=== PATIENT | male | born 1980 ===

== ENCOUNTER 2017-03-24 20:52 | Emergency (ER) | payer SELFPAY ==
[2017-03-24 20:53] VITALS: BMI 32.5
[2017-03-24 21:03] VITALS: BP 137/77; PULSE 113; RESP 16; TEMP 98.6; O2SAT 98
--- NOTE | 2017-03-24 21:38 | ED PDOC ---
Arrival/HPI - General Historian: Patient - History of Present Illness Time/Duration: Other (Yeserday) Symptom Onset: Sudden Symptom Course: Improving Activities at Onset: Rest, Light Context: Work <Jm Sandy - Last Filed: 03/24/17 22:45> <Inga Valencia PA-C - Last Filed: 03/24/17 22:56> - General Chief Complaint: Abnormal Skin Integrity Time Seen by Provider: 03/24/17 21:23 - History of Present Illness Narrative History of Present Illness (Text): 03/24/17 22:12 A 36 year old male with no known medical history , presents to the emergency department with a diffuse, itchy, erythematous, raised rash on the right arm after work. 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 The patient notes that he took Benadryl prior to arrival and the symptoms have improved. The patient denies chest pain, fever, chills, shortness of breath, URI, nausea, vomiting, diarrhea, dizziness, headache or any other complaints. (Jm Sandy) Past Medical History - Provider Review Nursing Documentation Reviewed: Yes <Jm Sandy - Last Filed: 03/24/17 22:45> - Infectious Disease Hx of Infectious Diseases: None - Cardiac Hx Cardiac Disorders: Yes Hx Hypertension: Yes - Endocrine/Metabolic Hx Endocrine Disorders: Yes Hx Diabetes Mellitus Type 2: Yes - Musculoskeletal/Rheumatological Hx Falls: No - Psychiatric Hx Psychophysiologic Disorder: No Hx Substance Use: No - Anesthesia Hx Anesthesia: Yes Hx Anesthesia Reactions: No Hx Malignant Hyperthermia: No <Inga Valencia PA-C - Last Filed: 03/24/17 22:56> Family/Social History - Physician Review Nursing Documentation Reviewed: Yes Family/Social History: No Known Family HX <Jm Sandy - Last Filed: 03/24/17 22:45> Smoking Status: Never Smoked Hx Alcohol Use: Yes (socially) Hx Substance Use: No <Inga Valencia PA-C - Last Filed: 03/24/17 22:56> Allergies/Home Meds <Jm Sandy - Last Filed: 08/03/17 22:45> <Inga Valencia PA-C - Last Filed: 03/24/17 22:56> Allergies/Adverse Reactions: Allergies No Known Allergies Allergy (Verified 06/15/15 20:00) Home Medications: Home Meds Medication Instructions Recorded Confirmed Lisinopril [Zestril] 20 mg PO DAILY 03/24/17 03/24/17 Review of Systems - Physician Review All systems were reviewed & negative as marked: Yes - Review of Systems Constitutional: absent: Fevers, Night Sweats Respiratory: absent: SOB, Other (URI) Cardiovascular: absent: Chest Pain Gastrointestinal: absent: Diarrhea, Nausea, Vomiting Skin: Rash (diffuse, itchy, erythematous, raised rash on right arm) Neurological: absent: Headache, Dizziness <Jm Sandy - Last Filed: 03/24/17 22:45> Physical Exam Vital Signs Reviewed: Yes Temperature: Afebrile Blood Pressure: Normal Pulse: Tachycardic Respiratory Rate: Normal - Systems Exam Head: Present: Atraumatic, Normocephalic Pupils: Present: PERRL Extroacular Muscles: Present: EOMI Conjunctiva: Present: Normal Mouth: Present: Moist Mucous Membranes Neck: Present: Normal Range of Motion Respiratory/Chest: Present: Clear to Auscultation, Good Air Exchange. No: Respiratory Distress, Accessory Muscle Use Cardiovascular: Present: Regular Rate and Rhythm, Normal S1, S2. No: Murmurs Abdomen: Present: Normal Bowel Sounds. No: Tenderness, Distention, Peritoneal Signs Back: Present: Normal Inspection Upper Extremity: Present: Normal Inspection. No: Cyanosis, Edema Lower Extremity: Present: Normal Inspection. No: Edema Neurological: Present: GCS=15, CN II-XII Intact, Speech Normal Skin: Present: Rashes (reisdual rash on right arm), Erythematous Psychiatric: Present: Alert, Oriented x 3, Normal Insight, Normal Concentration <Jm Sandy - Last Filed: 03/24/17 22:45> Medical Decision Making <Jm Sandy - Last Filed: 03/24/17 22:45> <Inga Valencia PA-C - Last Filed: 03/24/17 22:56> ED Course and Treatment: 03/24/17 22:45 I was available for consultation during PA evaluation. The chart reviewed by me , and I agree with disposition. The documented history was done by the physician criminal researcher. The documented physical exam was done by physician criminal researcher. The documented procedures were done by physician criminal researcher. (Jm Sandy) 03/24/17 21:35 36 yo M presents for red itch rash to the R arm, initially diffuse yesterday, improved with benadryl. Pt informed of likely diagnosis of urticaria, advised to continue taking benadryl or zyrtec po for his symptoms. Otherwise, pt was instructed to follow up with primary care physician in 1-2 days without fail. Return to the emergency room at any time for any new or worsening symptoms. Patient states he fully agrees with and understands discharge instructions. States that he agrees with the plan and disposition. Verbalized and repeated discharge instructions and plan. I have given the patient opportunity to ask any additional questions. (Inga Valencia PA-C) - Scribe Statement The provider has reviewed the documentation as recorded by the Scribe <Jm Sandy - Last Filed: 03/24/17 22:45> - PA / FLOOR MECHANIC / Resident Statement /DO has reviewed & agrees with the documentation as recorded. <Inga Valencia PA-C - Last Filed: 03/24/17 22:56> - Scribe Statement Ria Crabtree Provider Scribe Attestation: All medical record entries made by the Scribe were at my direction and personally dictated by me. I have reviewed the chart and agree that the record accurately reflects my personal performance of the history, physical exam, medical decision making, and the department course for this patient. I have also personally directed, reviewed, and agree with the discharge instructions and disposition (Jm Sandy) Disposition/Present on Arrival <mJ Sandy - Last Filed: 03/24/17 22:45> - Present on Arrival Any Indicators Present on Arrival: No History of DVT/PE: No History of Uncontrolled Diabetes: No Urinary Catheter: No History of Decub. Ulcer: No History Surgical Site Infection Following: None - Disposition Have Diagnosis and Disposition been Completed?: Yes Disposition Time: 21:36 Patient Plan: Discharge <Inga Valencia PA-C - Last Filed: 03/24/17 22:56> - Disposition Diagnosis: Urticaria Disposition: HOME/ ROUTINE Condition: STABLE Discharge Instructions (ExitCare): Urticaria (ED) Print Language: OCCITAN Additional Instructions: Thank you for letting us take care of you today. You were treated for urticaria. The emergency medical care you received today was directed at your acute symptoms. If you were prescribed any medication, please fill it and take as directed. It may take several days for your symptoms to resolve. Return to the Emergency Department if your symptoms worsen, do not improve, or if you have any other problems. Please contact your doctor in 2 days for re-evaluation and follow up / or call one of the physicians/clinics you have been referred to that are listed on the Patient Visit Information form that is included in your discharge packet. Bring any paperwork you were given at discharge with you along with any medications you are taking to your follow up visit. Our treatment cannot replace ongoing medical care by a primary care provider (PCP) outside of the emergency department. Thank you for allowing the [facility] team to be part of your care today. Prescriptions: Cetirizine HCl [Zyrtec] 10 mg PO DAILY #30 capsule Referrals: Génesis Connor DO [Primary Care Provider] - Follow up with primary Forms: [employer] ([place]se), WORK NOTE
== END 2017-03-24 21:49 | disposition home or self-care (01) ==
LOC: ED 20:52
DX: L50.9 Urticaria, unspecified (principal)

== ENCOUNTER 2017-10-13 13:35 | Emergency (ER) | payer OTHER ==
[2017-10-13 13:35] VITALS: BMI 32.5
--- NOTE | 2017-10-13 13:41 | ED PDOC ---
Arrival/HPI - General Time Seen by Provider: 10/13/17 13:36 Historian: Patient - History of Present Illness Narrative History of Present Illness (Text): 10/13/17 13:38 36 y/o male, pmh including dm, nkda, last tetanus doesn't remember, biba for etoh intoxication and fall on the street today. Pt. admits drinking, found small drinking bottles next to him, found on the sidewalk, fall on the posterior head, no back pain, no rib or extremity pain, no palpitation, no chest pain, no rash, no other medical or psychological complaints. Past Medical History - Provider Review Nursing Documentation Reviewed: Yes - Infectious Disease Hx of Infectious Diseases: None - Cardiac Hx Cardiac Disorders: Yes Hx Hypertension: Yes - Endocrine/Metabolic Hx Endocrine Disorders: Yes Hx Diabetes Mellitus Type 2: Yes - Musculoskeletal/Rheumatological Hx Falls: No - Psychiatric Hx Psychophysiologic Disorder: No Hx Substance Use: No - Anesthesia Hx Anesthesia: Yes Hx Anesthesia Reactions: No Hx Malignant Hyperthermia: No Family/Social History - Physician Review Nursing Documentation Reviewed: Yes Family/Social History: Unknown Family HX Smoking Status: Never Smoked Hx Alcohol Use: Yes (socially) Hx Substance Use: No Allergies/Home Meds Allergies/Adverse Reactions: Allergies No Known Allergies Allergy (Verified 10/13/17 13:43) Review of Systems - Review of Systems Constitutional: absent: Fatigue, Weight Change Eyes: absent: Vision Changes, Photophobia ENT: absent: Hearing Changes Respiratory: absent: SOB, Cough Cardiovascular: absent: Chest Pain Gastrointestinal: absent: Abdominal Pain, Nausea, Vomiting Physical Exam Vital Signs Temp Pulse Resp BP Pulse Ox 10/13/17 15:37 97.6 F 90 18 134/79 98 - Systems Exam Head: Present: Tenderness, Contusion, Swelling, Abrasion, Other (approx. 4c diameter posterior occipital scalp hematoma noted on the posterior head region. ). No: Ecchymosis, Laceration Pupils: Present: PERRL Extroacular Muscles: Present: EOMI Conjunctiva: Present: Normal Ears: Present: NORMAL TM, Normal Canal. No: Erythema Mouth: Present: Moist Mucous Membranes Pharnyx: Present: Normal. No: ERYTHEMA, EXUDATE, TONSILS ENLARGED, Peritonsilar Swelling Nose (External): Present: Atraumatic. No: Abrasion, Contusion, Laceration Nose (Internal): Present: Normal Inspection, No Active Bleeding. No: Rhinorrhea , Septal Hematoma, Epistaxis Neck: Present: Normal Range of Motion, Trachea Midline. No: Meningeal Signs, MIDLINE TENDERNESS, Paraspinal Tenderness, Lymphadenopathy Respiratory/Chest: Present: Clear to Auscultation, Good Air Exchange. No: Respiratory Distress, Accessory Muscle Use Cardiovascular: Present: Regular Rate and Rhythm, Normal S1, S2. No: Murmurs Abdomen: Present: Normal Bowel Sounds. No: Tenderness, Distention, Peritoneal Signs, Rebound, Guarding Back: Present: Normal Inspection Upper Extremity: Present: Normal Inspection. No: Cyanosis, Edema Lower Extremity: Present: Normal Inspection. No: Edema Neurological: Present: GCS=15, CN II-XII Intact, Speech Normal, Motor Func Grossly Intact, Memory Normal Skin: Present: Warm, Dry, Normal Color. No: Rashes Psychiatric: Present: Alert, Oriented x 3, Normal Insight, Normal Concentration Medical Decision Making ED Course and Treatment: 10/13/17 13:43 -Ct head/cervical -Labs -IV banana bag/tdap -observe and reassess 10/13/17 13:44 -irrigate the abrasion with normal saline, clean with betadine, bacitracin and gauze dressing. 10/13/17 17:55 -Labs are non-significant except etoh intoxicated and chronic alcohol drinking LFT elevated noted, K+ 3.4 (potassium chloride 20meq po ordered) -CT head show no acute findings -CT cervical show unremarkable CT of the cervical spine. -Pt. is up and walking, food and juice given, walking with normal gait and posture, no focal neurological complaints. -pt. refused detox. -Discharge home with bacitracin oinment, avoid drinking in the public, return to the ER for any new or worsening signs or symptoms. - Lab Interpretations Lab Results: 10/13/17 13:45 10/13/17 13:45 Lab Results 10/13/17 13:45: Sodium 151 H, Potassium 3.4 L, Chloride 106, Carbon Dioxide 23, Anion Gap 25 H, BUN 4 L, Creatinine 0.5 L, Est GFR ( Amer) > 60, Est GFR (Non-Af Amer) > 60, Random Glucose 174 H, Calcium 9.5, Magnesium 1.8, Total Bilirubin 0.9, AST 119 H, ALT 79 H, Alkaline Phosphatase 186 H, Total Protein 8.2, Albumin 4.6, Globulin 3.6, Albumin/Globulin Ratio 1.3 10/13/17 13:45: WBC 9.9 D, RBC 4.54, Hgb 15.2, Hct 45.7, MCV 100.7, MCH 33.5, MCHC 33.3, RDW 13.2, Plt Count 200, MPV 10.7, Gran % 72.9 H, Lymph % (Auto) 21.3 L, [place] % (Auto) 5.2, Eos % (Auto) 0.1 L, Baso % (Auto) 0.5, Gran # 7.23 H , Lymph # (Auto) 2.1, [place] # (Auto) 0.5, Eos # (Auto) 0.0, Baso # (Auto) 0.05 - RAD Interpretation Radiology Orders: 10/13/17 13:44 CERVICAL SPINE W/O CONTRAST [CT] Stat HEAD W/O CONTRAST [CT] Stat CT Head: HEMORRHAGE: No intracranial hemorrhage. BRAIN: No mass effect or edema. No atrophy or chronic microvascular ischemic changes. VENTRICLES: Unremarkable. No hydrocephalus. CALVARIUM: Unremarkable. PARANASAL SINUSES: Unremarkable as visualized. No significant inflammatory changes. MASTOID AIR CELLS: Unremarkable as visualized. No inflammatory changes. OTHER FINDINGS: None. IMPRESSION: No acute intracranial findings CT Cervical: VERTEBRAE: No fracture. Normal alignment. No destructive bony lesion. DISCS/SPINAL CANAL/NEURAL FORAMINA: No significant central canal or neural foraminal stenosis. Discs heights are grossly preserved. PARASPINAL SOFT TISSUES: Unremarkable. OTHER FINDINGS: None. IMPRESSION: Unremarkable CT of the cervical spine. Carton Inspector: Radiologist - Medication Orders Current Medication Orders: Discontinued Medications Multivitamins/Vitamin C 10 ml/Thiamine HCl 100 mg/ Folic Acid 1 mg/ Dextrose 1, 011.2 mls @ 1,000 mls/hr IV .Q1H1M ONE Stop: 10/13/17 14:44 Last Admin: 10/13/17 14:55 Dose: 1,000 mls/hr eMAR Start Stop Document 10/13/17 14:55 CNR (Rec: 10/13/17 14:55 CNR [id number]) Intravenous Solution Start Date 10/13/17 Start Time 14:55 Potassium Chloride (K-Dur 20 Meq Er Tab) 20 meq PO STAT STA Stop: 10/13/17 14:20 Last Admin: 10/13/17 15:01 Dose: Not Given Non-Admin Reason: Patient Refused Tetanus/Reduced Diphtheria/Acell Pertussis (Boostrix Vaccine Inj) 0.5 ml IM .ONCE ONE Stop: 10/13/17 13:49 Last Admin: 10/13/17 14:55 Dose: 0.5 ml Immunization Registry Document 10/13/17 14:55 CNR (Rec: 10/13/17 14:55 CNR [id number]) Immunization Registry Consent Date 10/13/17 - PA / SKIN PASS OPERATOR / Resident Statement / has reviewed & agrees with the documentation as recorded. Disposition/Present on Arrival - Present on Arrival Any Indicators Present on Arrival: No History of DVT/PE: No History of Uncontrolled Diabetes: No Urinary Catheter: No History of Decub. Ulcer: No History Surgical Site Infection Following: None - Disposition Have Diagnosis and Disposition been Completed?: Yes Diagnosis: Alcohol intoxication, Head injury, Scalp abrasion, Hypokalemia Disposition: HOME/ ROUTINE Disposition Time: 13:43 Patient Plan: Discharge Patient Problems: Current Active Problems Problem Status Onset Alcohol intoxication Acute Head injury Acute Scalp abrasion Acute Condition: GOOD Additional Instructions: -Discharge home with bacitracin oinment, avoid drinking in the public, return to the ER for any new or worsening signs or symptoms. Prescriptions: Bacitracin Ointment [Bacitracin] 1 appful TOP BID #15 g Referrals: PCP,NO [Non-Staff] - Follow up with primary [facility] [place] [facility] [place] - Follow up with primary Forms: WORK NOTE
[2017-10-13] MEDS ORDERED: Multivitamin (MVI) 10 ML, Thiamine 100 MG, Folic Acid 1 MG in Dextrose 5% In Water 1,00... IV ONE (13:44)
[2017-10-13] MEDS ORDERED: TDAP Vaccine 0.5 mL Syr IM ONE (13:48)
[2017-10-13 14:05] LABS: BASO # 0.05 K/mm3 (0.0-2.0); BASO % 0.5 % (0.0-3.0); EOS % 0.1 % (1.5-5.0); GRAN # 7.23 (1.4-6.5); GRAN % 72.9 % (50.0-68.0); HEMOGLOBIN 15.2 g/dL (14.0-18.0); LYMPH # 2.1 (1.2-3.4); LYMPH % 21.3 % (22.0-35.0); MEAN CELL VOLUME 100.7 fl (80.0-105.0); MEAN CORPUSCULAR HEMOGLOBIN 33.5 pg (25.0-35.0); MEAN CORPUSCULAR HGB CONC 33.3 g/dl (31.0-37.0); MEAN PLATELET VOLUME 10.7 fl (7.0-11.0); MONO # 0.5 (0.1-0.6); MONO % 5.2 % (1.0-6.0); RBC 4.54 10^6/uL (3.5-6.1); RED CELL DISTRIBUTION WIDTH 13.2 % (11.5-14.5); WHITE BLOOD COUNT 9.9 10^3/ul (4.5-11.0)
[2017-10-13 14:14] LABS: ALB/GLOB RATIO 1.3 (1.1-1.8); ALBUMIN 4.6 g/dL (3.0-4.8); ALT/SGPT 79 U/L (7-56); AST/SGOT 119 U/L (17-59); BLOOD UREA NITROGEN 4 mg/dL (7-21); CALCIUM 9.5 mg/dL (8.4-10.5); GFR AFRICAN-AMERICAN > 60; GFR NON-AFRICAN AMERICAN > 60; MAGNESIUM 1.8 mg/dL (1.7-2.2)
--- NOTE | 2017-10-13 14:37 | CT ---
PROCEDURE: CT HEAD WITHOUT CONTRAST. HISTORY: fall, etoh, head injury COMPARISON: None available. TECHNIQUE: Axial computed tomography images were obtained through the head/brain without intravenous contrast. Radiation dose: Total exam DLP = 929 mGy-cm. This CT exam was performed using one or more of the following dose reduction techniques: Automated exposure control, adjustment of the mA and/or kV according to patient size, and/or use of iterative reconstruction technique. FINDINGS: HEMORRHAGE: No intracranial hemorrhage. BRAIN: No mass effect or edema. No atrophy or chronic microvascular ischemic changes. VENTRICLES: Unremarkable. No hydrocephalus. CALVARIUM: Unremarkable. PARANASAL SINUSES: Unremarkable as visualized. No significant inflammatory changes. MASTOID AIR CELLS: Unremarkable as visualized. No inflammatory changes. OTHER FINDINGS: None. IMPRESSION: No acute intracranial findings
--- NOTE | 2017-10-13 14:39 | CT ---
PROCEDURE: CT Cervical Spine without contrast HISTORY: Fall, ETOH, head injury COMPARISON: None available. TECHNIQUE: Axial computed tomography images were obtained of the cervical spine without the use of intravenous contrast. Coronal and sagittal reformatted images were created and reviewed. Radiation dose: Total exam DLP = 642 mGy-cm. This CT exam was performed using one or more of the following dose reduction techniques: Automated exposure control, adjustment of the mA and/or kV according to patient size, and/or use of iterative reconstruction technique. FINDINGS: VERTEBRAE: No fracture. Normal alignment. No destructive bony lesion. DISCS/SPINAL CANAL/NEURAL FORAMINA: No significant central canal or neural foraminal stenosis. Discs heights are grossly preserved. PARASPINAL SOFT TISSUES: Unremarkable. OTHER FINDINGS: None. IMPRESSION: Unremarkable CT of the cervical spine.
[2017-10-13] MEDS: Potassium Chloride 20 mEq ER Tab PO STA ×2 (14:56→15:01)
[2017-10-13 15:38] VITALS: BP 134/79; PULSE 90; RESP 18; TEMP 97.6; O2SAT 98
== END 2017-10-13 18:03 | disposition home or self-care (01) ==
LOC: ED 13:35
DX: S00.01XA Abrasion of scalp, initial encounter (principal); W18.30XA Fall on same level, unspecified, initial encounter; Y92.410 Unspecified street and highway as the place of occurrence of the external cause; E87.6 Hypokalemia; F10.129 Alcohol abuse with intoxication, unspecified; Y90.9 Presence of alcohol in blood, level not specified; Z23 Encounter for immunization
CPT/HCPCS: 70450; 72125; 80053; 83735; 85025; 90471; 90715; 99283; J3411; J7070

== ENCOUNTER 2018-11-30 16:21 | Inpatient (IN) | payer MEDICAID, OTHER ==
[2018-11-30 16:22] VITALS: BMI 32.5
[2018-11-30] MEDS ORDERED: TDAP Vaccine 0.5 mL Syr IM ONE (17:29)
[2018-11-30] MEDS ORDERED: Sodium Chloride 0.9% 500 ML IV STA (17:30)
--- NOTE | 2018-11-30 17:56 | ED PDOC ---
Arrival/HPI - General Chief Complaint: Abnormal Skin Integrity Time Seen by Provider: 11/30/18 17:21 Historian: Patient - History of Present Illness Narrative History of Present Illness (Text): 11/30/18 17:49 38 year old male, with history of daily alcohol consumption, presents to the ED for evaluation of laceration sustained to right side of his head while shaving yesterday. Patient states his friend noticed him bleeding from the area today, referring him to the ED for medical evaluation. Additionally, patient reports abdominal distention since past month but denies any medical attention or PMD follow-up. He denies any other associated somatic complaints. Patient denies any fevers, chills, headache, dizziness, chest pain, shortness of breath, dyspnea on exertion, cough, abdominal pain, nausea, vomiting, diarrhea, back pain, neck pain, or any other complaints. Time/Duration: 24 hours Symptom Onset: Gradual Symptom Course: Unchanged Activities at Onset: Light Context: Home Past Medical History - Provider Review Nursing Documentation Reviewed: Yes - Infectious Disease Hx of Infectious Diseases: None - Cardiac Hx Cardiac Disorders: Yes Hx Hypertension: Yes - Endocrine/Metabolic Hx Endocrine Disorders: Yes Hx Diabetes Mellitus Type 2: Yes - Musculoskeletal/Rheumatological Hx Falls: No - Psychiatric Hx Psychophysiologic Disorder: No Hx Substance Use: No - Anesthesia Hx Anesthesia: Yes Hx Anesthesia Reactions: No Hx Malignant Hyperthermia: No Family/Social History - Physician Review Nursing Documentation Reviewed: Yes Family/Social History: Unknown Family HX Smoking Status: Never Smoked Hx Alcohol Use: Yes (socially) Frequency of alcohol use: Daily Hx Substance Use: No Allergies/Home Meds Allergies/Adverse Reactions: Allergies No Known Allergies Allergy (Verified 10/13/17 13:43) Home Medications: Home Meds Medication Instructions Recorded Confirmed No Known Home Med 11/30/18 11/30/18 Review of Systems - Review of Systems Constitutional: absent: Fevers Eyes: absent: Vision Changes Respiratory: absent: SOB, Cough Cardiovascular: absent: Chest Pain Gastrointestinal: Other (Abdominal distention). absent: Abdominal Pain, Diarrhea, Nausea, Vomiting Genitourinary Male: absent: Dysuria, Urinary Output Changes Musculoskeletal: absent: Back Pain, Neck Pain Skin: Laceration (right side of his head). absent: Rash Neurological: absent: Headache, Dizziness Endocrine: absent: Diaphoresis Psychiatric: absent: Anxiety Physical Exam Vital Signs Reviewed: Yes Vital Signs Temp Pulse Resp BP Pulse Ox 11/30/18 16:47 99.5 F 108 H 20 136/87 97 Temperature: Afebrile Blood Pressure: Normal Pulse: Tachycardic Respiratory Rate: Normal Appearance: Positive for: Well-Appearing, Non-Toxic, Comfortable Pain Distress: None Mental Status: Positive for: Alert and Oriented X 3 - Systems Exam Head: Present: Normocephalic, Abrasion (noted to right side of his head) Pupils: Present: PERRL Extroacular Muscles: Present: EOMI Conjunctiva: Present: Normal, Icteric Respiratory/Chest: Present: Decreased Breath Sounds (Decreased air entry at the bases). No: Respiratory Distress, Accessory Muscle Use Cardiovascular: Present: Regular Rate and Rhythm, Normal S1, S2. No: Murmurs Abdomen: Present: Distention, Hernias (vental hernia, reducible, ). No: Tenderness, Peritoneal Signs Upper Extremity: Present: Normal Inspection. No: Cyanosis, Edema Lower Extremity: Present: Edema (trace edema noted to bilateral lower extremity) Neurological: Present: GCS=15, Speech Normal Skin: Present: Warm, Dry, Normal Color. No: Rashes Psychiatric: Present: Alert, Oriented x 3, Normal Insight, Normal Concentration Medical Decision Making ED Course and Treatment: 11/30/18 17:30 Impression: 38 year old male presents to the ED for evaluation of abrasion to right head. Plan: -- CT of Abdomen/Pelvis -- Labs -- EKG -- TDAP -- IV Fluids -- Urinalysis -- Reassess and disposition Prior Visits: Notes and results from previous visits were reviewed. Progress Notes: 11/30/18 18:28 Chest X-ray reviewed by radiologist, shows: Marked hypoinflation. Bibasilar atelectasis. 11/30/18 19:20 EKG reviewed, shows sinus tachycardia at 104 bpm with some LVH. 11/30/18 19:43 IMPRESSION: Mild consolidation and/or atelectasis at the lung bases as well as small pleural effusions. A large amount of ascites within the abdomen and pelvis. Mild hepatosplenomegaly. Cirrhotic changes within the liver. Clinical correlation advised. Accepted by Dr. Disla. enrollment services vice president aware 11/30/18 19:47 11/30/18 19:57 Dr. Disla requesting surgical consult for vental hernia. vice president quality assurance aware and consult placed. - RAD Interpretation Radiology Orders: 11/30/18 17:29 CHEST PORTABLE [RAD] Stat 11/30/18 17:30 ABD & PELVIS IV CONTRAST ONLY [CT] Stat - Medication Orders Current Medication Orders: Sodium Chloride (Sodium Chloride 0.9%) 500 mls @ 999 mls/hr IV .Q31M STA Stop: 11/30/18 18:00 Discontinued Medications Tetanus/Reduced Diphtheria/Acell Pertussis (Boostrix Vaccine Inj) 0.5 ml IM .ONCE ONE Stop: 11/30/18 17:30 - Scribe Statement The provider has reviewed the documentation as recorded by the Scribe Best Swan. All medical record entries made by the Scribe were at my direction and personally dictated by me. I have reviewed the chart and agree that the record accurately reflects my personal performance of the history, physical exam, medi sharonda decision making, and the department course for this patient. I have also personally directed, reviewed, and agree with the discharge instructions and disposition. Disposition/Present on Arrival - Present on Arrival Any Indicators Present on Arrival: No History of DVT/PE: No History of Uncontrolled Diabetes: No Urinary Catheter: No History of Decub. Ulcer: No History Surgical Site Infection Following: None - Disposition Have Diagnosis and Disposition been Completed?: Yes Diagnosis: Jaundice, Cirrhosis, Liver failure, Alcohol abuse, Ventral hernia Disposition: HOSPITALIZED Disposition Time: 19:40 Patient Plan: Admission Patient Problems: Current Active Problems Problem Status Onset Alcohol abuse Acute Cirrhosis Acute Jaundice Acute Liver failure Acute Ventral hernia Acute Condition: FAIR
[2018-11-30 18:05] LABS: BASO # 0.03 K/mm3 (0.0-2.0); BASO % 0.4 % (0.0-3.0); EOS # 0.2 (0.0-0.7); EOS % 2.1 % (1.5-5.0); HEMOGLOBIN 12.7 g/dL (14.0-18.0); LYMPH % 13.6 % (22.0-35.0); MEAN CELL VOLUME 94.2 fl (80.0-105.0); MEAN CORPUSCULAR HEMOGLOBIN 30.9 pg (25.0-35.0); MEAN CORPUSCULAR HGB CONC 32.8 g/dl (31.0-37.0); MEAN PLATELET VOLUME 10.7 fl (7.0-11.0); MONO # 0.6 (0.1-0.6); MONO % 8.8 % (1.0-6.0); RBC 4.11 10^6/uL (3.5-6.1); RED CELL DISTRIBUTION WIDTH 14.3 % (11.5-14.5); WHITE BLOOD COUNT 7.1 10^3/uL (4.5-11.0)
[2018-11-30 18:14] LABS: INR 1.26; PARTIAL THROMBOPLASTIN TIME 37.8 Seconds (26.9-38.3)
--- NOTE | 2018-11-30 18:17 | RAD ---
HISTORY: liver failure COMPARISON: Chest x-ray performed 04/24/15 TECHNIQUE: Chest, one view. FINDINGS: Examination limited by habitus and marked hypoinflation. LUNGS: No focal consolidation. Please note that chest x-ray has limited sensitivity for the detection of pulmonary masses. PLEURA: No significant pleural effusion identified. No definite pneumothorax . CARDIOVASCULAR: Heart size appears within normal limits. OSSEOUS STRUCTURES: No acute osseous abnormality identified. VISUALIZED UPPER ABDOMEN: Elevation of the right hemidiaphragm. OTHER FINDINGS: None. IMPRESSION: Marked hypoinflation. Bibasilar atelectasis.
[2018-11-30 18:18] LABS: ALBUMIN 3.7 g/dL (3.0-4.8); ALT/SGPT 39 U/L (7-56); AST/SGOT 162 U/L (17-59); BLOOD UREA NITROGEN 4 mg/dL (7-21); CALCIUM 8.1 mg/dL (8.4-10.5); GFR NON-AFRICAN AMERICAN > 60
[2018-11-30] MEDS ORDERED: Iohexol 350 MG/100 ML VIAL ONE (18:23)
[2018-11-30] MEDS ORDERED: Sodium Chloride 0.9% 1,000 ML IV SCH (19:45)
[2018-11-30] MEDS ORDERED: Dextrose 50% SYRINGE Inj (50 ml) IV PRN (20:15)
--- NOTE | 2018-11-30 20:42 | CP.PCM.CON ---
History of Present Illness - History of Present Illness History of Present Illness: Surgery Consult Note for Dr. Rodrigues Consult: Umbilical Hernia HPI: 38 year old male, past medical history significant for alcohol abuse, hypertension (untreated), and DM (untreated), who presents to our emergency department with a head laceration after shaving accident. In the ED, patient noted to have significantly distended abdomen with an obvious umbilical hernia with skin changes for which a surgical consult was placed. CT scan shows significant ascites. Patient has been abusing alcohol since he was 18 years old. Noticed increase in abdominal growth for the past 2 months worsening. His weight tends to fluctuate but recently has gained some weight. Denies fever, chills, nausea, vomiting, diarrhea, SOB, CP, or urinary symptoms. PMH: See above PSH: Denies FH: Noncontributory SH: Drinks 3-4 drinks (beer, whiskey, vodka - whatever is available) daily for 20 years. Denies tobacco or illicit drug use. 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 ALL: NKDA Meds: Denies PMD: Génesis Connor Review of Systems - Constitutional Constitutional: Weight Gain. absent: Chills, Fatigue, Fever, Weight Loss - EENT Eyes: absent: Blurred Vision, Change in Vision Nose/Mouth/Throat: absent: Nasal Congestion, Nasal Discharge - Cardiovascular Cardiovascular: absent: Chest Pain, Dyspnea - Respiratory Respiratory: absent: Cough, Dyspnea, Dyspnea on Exertion - Gastrointestinal Gastrointestinal: Bloating. absent: Abdominal Pain, Coffee Ground Emesis, Diarrhea, Nausea, Vomiting - Genitourinary Genitourinary: absent: Change in Urinary Stream, Difficulty Urinating - Musculoskeletal Musculoskeletal: absent: Back Pain, Neck Pain - Integumentary Integumentary: absent: Bleeding Lesions, Changing Lesions - Neurological Neurological: absent: Confusion, Dizziness - Psychiatric Psychiatric: absent: Anxiety, Depression Past Patient History - Infectious Disease Hx of Infectious Diseases: None - Past Social History Smoking Status: Never Smoked - CARDIAC Hx Cardiac Disorders: Yes Hx Hypertension: Yes - ENDOCRINE/METABOLIC Hx Endocrine Disorders: Yes Hx Diabetes Mellitus Type 2: Yes - MUSCULOSKELETAL/RHEUMATOLOGICAL Hx Falls: No - PSYCHIATRIC Hx Psychophysiologic Disorder: No Hx Substance Use: No - SURGICAL HISTORY Hx Surgeries: No - ANESTHESIA Hx Anesthesia: Yes Hx Anesthesia Reactions: No Hx Malignant Hyperthermia: No Meds Allergies/Adverse Reactions: Allergies Allergy/AdvReac Type Severity Reaction Status Date / Time No Known Allergies Allergy Verified 10/13/17 13:43 - Medications Medications: Current Medications Dextrose (Dextrose 50% Inj) 0 ml IV STAT PRN; Protocol PRN Reason: Hypoglycemia Protocol Folic Acid (Folic Acid) 1 mg PO DAILY [facility] Sodium Chloride (Sodium Chloride 0.9%) 1,000 mls @ 100 mls/hr IV .Q10H KASIA Last Admin: 11/30/18 19:59 Dose: 100 mls/hr Dextrose (Dextrose 5% In Water 1000 Ml) 1,000 mls @ 0 mls/hr IV .Q0M PRN; Protocol PRN Reason: Hypoglycemia Protocol Insulin Human Regular (Humulin R) 0 units SC ACHS KASIA; Protocol Multivitamins/Minerals (Therapeutic-M Tab) 1 tab PO 0800 KSAIA Thiamine HCl (Vitamin B1 Tab) 100 mg PO DAILY KASIA Physical Exam - Constitutional Appears: Non-toxic, No Acute Distress Additional comments: diaphoretic - Head Exam Head Exam: ATRAUMATIC, NORMAL INSPECTION, NORMOCEPHALIC - Eye Exam Eye Exam: EOMI Pupil Exam: PERRL - ENT Exam ENT Exam: Mucous Membranes Moist - Respiratory Exam Respiratory Exam: NORMAL BREATHING PATTERN. absent: Accessory Muscle Use, Wheezes, Respiratory Distress - Cardiovascular Exam Cardiovascular Exam: REGULAR RHYTHM, +S1, +S2 - GI/Abdominal Exam GI & Abdominal Exam: Distended, Firm, Hernia - Extremities Exam Extremities exam: Positive for: pedal edema, pedal pulses present. Negative for: calf tenderness - Neurological Exam Neurological exam: Alert, Oriented x3 - Psychiatric Exam Psychiatric exam: Normal Affect, Normal Mood - Skin Skin Exam: Dry, Intact, Normal Color, Warm Results - Vital Signs Recent Vital Signs: Last Vital Signs Temp 99.5 F 11/30/18 16:47 Pulse 77 11/30/18 19:42 Resp 18 11/30/18 19:42 BP 124/80 11/30/18 19:42 Pulse Ox 98 11/30/18 19:42 - Labs Result Diagrams: 11/30/18 17:55 11/30/18 17:55 Labs: Laboratory Results - last 24 hr 11/30/18 11/30/18 11/30/18 17:55 17:55 17:55 WBC 7.1 RBC 4.11 Hgb 12.7 L D Hct 38.7 L MCV 94.2 D MCH 30.9 MCHC 32.8 RDW 14.3 Plt Count 83 L MPV 10.7 Neut % (Auto) 75.1 H Lymph % (Auto) 13.6 L [place] % (Auto) 8.8 H Eos % (Auto) 2.1 Baso % (Auto) 0.4 Lymph # (Auto) 1.0 L [place] # (Auto) 0.6 Eos # (Auto) 0.2 Baso # (Auto) 0.03 Absolute Neuts (auto) 5.32 PT 14.0 H INR 1.26 APTT 37.8 Sodium 141 Potassium 3.6 Chloride 102 Carbon Dioxide 25 Anion Gap 17 BUN 4 L Creatinine 0.5 L Est GFR ( Amer) > 60 Est GFR (Non-Af Amer) > 60 Random Glucose 127 H Calcium 8.1 L Total Bilirubin 1.8 H AST 162 H D ALT 39 Alkaline Phosphatase 461 H D Ammonia Lactate Dehydrogenase 770 H Total Protein 7.3 Albumin 3.7 Globulin 3.6 Albumin/Globulin Ratio 1.0 L Alcohol, Quantitative 11/30/18 11/30/18 17:55 17:55 WBC RBC Hgb Hct MCV MCH MCHC RDW Plt Count MPV Neut % (Auto) Lymph % (Auto) [place] % (Auto) Eos % (Auto) Baso % (Auto) Lymph # (Auto) [place] # (Auto) Eos # (Auto) Baso # (Auto) Absolute Neuts (auto) PT INR APTT Sodium Potassium Chloride Carbon Dioxide Anion Gap BUN Creatinine Est GFR ( Amer) Est GFR (Non-Af Amer) Random Glucose Calcium Total Bilirubin AST ALT Alkaline Phosphatase Ammonia 39 H Lactate Dehydrogenase Total Protein Albumin Globulin Albumin/Globulin Ratio Alcohol, Quantitative 249 H Assessment & Plan - Assessment and Plan (Free Text) Assessment: 38M w/ ascites likely 2/2 cirrhosis w/ protruding umbilical hernia and overlying erythematous skin changes Plan: Patient likely has alcoholic cirrhosis Patient states overlying umbilical erythema has been present for 1.5-2 months Recommend Paracentesis for worsening ascites CTAP - umbilical hernia with fluid, no bowel loops or fat, no obstruction Recommend alcohol cessation/counseling No acute surgical intervention at this present time D/w Dr. Lilia Gilbert PGY1
--- NOTE | 2018-11-30 20:44 | CP.PCM.HP ---
<LumaWillie - Last Filed: 11/30/18 22:51> History of Present Illness - History of Present Illness History of Present Illness: PGY-1 History and Physical [address] Dr. Disla Patient is a 38 year old male with past medical history of alcohol abuse, HTN, DM (both untreated), presenting to ED with a R head laceration after a shaving accident. While in the ED, he was found to have significant abdominal distention, with ascites noted on CT. Patient states he has been drinking alcohol nearly daily after work since he was 18 years old. His last drink was last night. Patient was noted to have mild tremors during interview, but patient denied when asked about it. As per patient, his abdominal distention has worsened over the past 2 months, but has not followed up with a primary care provider. His weight tends to fluctuate but recently has gained some weight. No fevers/chills, headaches, dizziness, chest pain, palpitations, sob, cough, abdominal pain, n/v/d/c, dysuria, or changes in stool. 12 pt ROS reviewed and otherwise negative. PMHx: alcohol abuse, HTN, DM PSHx: denies Allergies: NKDA Home Meds: denies Family Hx: noncontributory Social Hx: 3-4 drinks daily (cans of beer, whiskey shots, vodka shots--whatever is available), denies tobacco or illicit drug use. 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 PMD: Dr. Connor Present on Admission - Present on Admission Any Indicators Present on Admission: Yes History of Uncontrolled Diabetes: Yes Review of Systems - Review of Systems All systems: reviewed and no additional remarkable complaints except Review of Systems: as per HPI Past Patient History - Infectious Disease Hx of Infectious Diseases: None - Past Social History Smoking Status: Never Smoked - CARDIAC Hx Cardiac Disorders: Yes Hx Hypertension: Yes - ENDOCRINE/METABOLIC Hx Endocrine Disorders: Yes Hx Diabetes Mellitus Type 2: Yes - MUSCULOSKELETAL/RHEUMATOLOGICAL Hx Falls: No - PSYCHIATRIC Hx Psychophysiologic Disorder: No Hx Substance Use: No - SURGICAL HISTORY Hx Surgeries: No - ANESTHESIA Hx Anesthesia: Yes Hx Anesthesia Reactions: No Hx Malignant Hyperthermia: No Meds Allergies/Adverse Reactions: Allergies Allergy/AdvReac Type Severity Reaction Status Date / Time No Known Allergies Allergy Verified 10/13/17 13:43 Physical Exam - Constitutional Appears: No Acute Distress - Head Exam Additional comments: JUANCHO bandage noted over R head laceration. No soaked bandage noted. - Eye Exam Eye Exam: EOMI, Normal appearance, PERRL, Scleral icterus Pupil Exam: NORMAL ACCOMODATION - ENT Exam ENT Exam: Mucous Membranes Dry, Normal Exam - Neck Exam Neck exam: Positive for: Full Rom, Normal Inspection - Respiratory Exam Respiratory Exam: Decreased Breath Sounds, Clear to Auscultation Bilateral. absent: Accessory Muscle Use, Rales, Rhonchi, Wheezes, Respiratory Distress, Stridor - Cardiovascular Exam Cardiovascular Exam: REGULAR RHYTHM, +S1, +S2 - GI/Abdominal Exam GI & Abdominal Exam: Distended, Firm (umbilical hernia with overlying skin discoloration noted), Hernia, Normal Bowel Sounds. absent: Guarding, Rebound Additional comments: prominent abdominal ascites noted, positive fluid wave - Extremities Exam Extremities exam: Positive for: normal capillary refill, pedal edema, pedal pulses present. Negative for: calf tenderness - Back Exam Back exam: NORMAL INSPECTION - Neurological Exam Neurological exam: Alert, Oriented x3 - Skin Skin Exam: Dry, Intact, Normal Color, Warm Results - Vital Signs Recent Vital Signs: Last Vital Signs Temp 99.5 F 11/30/18 16:47 Pulse 77 11/30/18 19:42 Resp 18 11/30/18 19:42 BP 124/80 11/30/18 19:42 Pulse Ox 98 11/30/18 19:42 - Labs Result Diagrams: 11/30/18 17:55 11/30/18 17:55 Labs: Laboratory Results - last 24 hr 11/30/18 11/30/18 11/30/18 17:55 17:55 17:55 WBC 7.1 RBC 4.11 Hgb 12.7 L D Hct 38.7 L MCV 94.2 D MCH 30.9 MCHC 32.8 RDW 14.3 Plt Count 83 L MPV 10.7 Neut % (Auto) 75.1 H Lymph % (Auto) 13.6 L [place] % (Auto) 8.8 H Eos % (Auto) 2.1 Baso % (Auto) 0.4 Lymph # (Auto) 1.0 L [place] # (Auto) 0.6 Eos # (Auto) 0.2 Baso # (Auto) 0.03 Absolute Neuts (auto) 5.32 PT 14.0 H INR 1.26 APTT 37.8 Sodium 141 Potassium 3.6 Chloride 102 Carbon Dioxide 25 Anion Gap 17 BUN 4 L Creatinine 0.5 L Est GFR ( Amer) > 60 Est GFR (Non-Af Amer) > 60 Random Glucose 127 H Calcium 8.1 L Total Bilirubin 1.8 H AST 162 H D ALT 39 Alkaline Phosphatase 461 H D Ammonia Lactate Dehydrogenase 770 H Total Protein 7.3 Albumin 3.7 Globulin 3.6 Albumin/Globulin Ratio 1.0 L Alcohol, Quantitative 11/30/18 11/30/18 17:55 17:55 WBC RBC Hgb Hct MCV MCH MCHC RDW Plt Count MPV Neut % (Auto) Lymph % (Auto) [place] % (Auto) Eos % (Auto) Baso % (Auto) Lymph # (Auto) [place] # (Auto) Eos # (Auto) Baso # (Auto) Absolute Neuts (auto) PT INR APTT Sodium Potassium Chloride Carbon Dioxide Anion Gap BUN Creatinine Est GFR ( Amer) Est GFR (Non-Af Amer) Random Glucose Calcium Total Bilirubin AST ALT Alkaline Phosphatase Ammonia 39 H Lactate Dehydrogenase Total Protein Albumin Globulin Albumin/Globulin Ratio Alcohol, Quantitative 249 H Assessment & Plan - Assessment and Plan (Free Text) Assessment: 38 year old male with pmhx of alcohol abuse, untreated HTN and DM, presenting to ED with R head laceration. Found to have significant abdominal distention, umbilical hernia, ascites on CT abdomen. Plan: Abdominal Ascites -positive fluid wave test -CT abdomen/pelvis: large amount of ascites within the abdomen and pelvis. Mild hepatosplenomegaly. Cirrhotic changes within the liver. -f/u abdominal u/s -consider IR consult in the AM for paracentesis Alcohol hepatitis, Liver cirrhosis -alcohol serum: 249 -AST/ALT:162/39 -ALP 461 -Total bilirubin: 1.8 -f/u direct bilirubin -f/u Mg, Phos -f/u hepatitis panel -Hepatobiliary surgery (Dr. Tovar) consulted Umbilical hernia -r/o incarceration -protruding, nontender umbilical hernia noted on PE with overlying erythematous skin changes -General Surgery (Dr. Hidalgo) consulted Alcohol Abuse -last drink reported last night -pt states he drinks 3-4 drinks daily -CIWA protocol -banana bag -thiamine/folate/MV -ativan 2 mg IVP q6 prn -PO librium held given abnormal LFT findings -alcohol cessation counseling Uncontrolled DM -f/u A1C -ISS medium dose -accuchecks ACHS -hypoglycemic protocol Hx of HTN -currently normotensive, continue to monitor -not on any home meds PPx, Diet, Disposition -DVT ppx: scds, heparin 5000 units sc q8 -GI ppx: protonix 40 mg IVP daily -Diet: HHD Case discussed with Dr. Naif Ge DO, PGY-1 <Ganesh Disla - Last Filed: 12/01/18 05:17> Results - Vital Signs Recent Vital Signs: Last Vital Signs Temp 97.8 F 12/01/18 00:01 Pulse 93 H 12/01/18 02:00 Resp 20 12/01/18 00:01 BP 141/85 12/01/18 00:01 Pulse Ox 97 12/01/18 00:01 - Labs Result Diagrams: 11/30/18 17:55 11/30/18 17:55 Labs: Laboratory Results - last 24 hr 11/30/18 11/30/18 11/30/18 17:55 17:55 17:55 WBC 7.1 RBC 4.11 Hgb 12.7 L D Hct 38.7 L MCV 94.2 D MCH 30.9 MCHC 32.8 RDW 14.3 Plt Count 83 L MPV 10.7 Neut % (Auto) 75.1 H Lymph % (Auto) 13.6 L [place] % (Auto) 8.8 H Eos % (Auto) 2.1 Baso % (Auto) 0.4 Lymph # (Auto) 1.0 L [place] # (Auto) 0.6 Eos # (Auto) 0.2 Baso # (Auto) 0.03 Absolute Neuts (auto) 5.32 PT 14.0 H INR 1.26 APTT 37.8 Sodium 141 Potassium 3.6 Chloride 102 Carbon Dioxide 25 Anion Gap 17 BUN 4 L Creatinine 0.5 L Est GFR ( Amer) > 60 Est GFR (Non-Af Amer) > 60 Random Glucose 127 H Calcium 8.1 L Phosphorus Magnesium Total Bilirubin 1.8 H Direct Bilirubin AST 162 H D ALT 39 Alkaline Phosphatase 461 H D Ammonia Lactate Dehydrogenase 770 H Total Protein 7.3 Albumin 3.7 Globulin 3.6 Albumin/Globulin Ratio 1.0 L Triglycerides Cholesterol LDL Cholesterol Direct HDL Cholesterol Free T4 TSH 3rd Generation Urine Color Urine Appearance Urine pH Ur Specific [place] Urine Protein Urine Glucose (UA) Urine Ketones Urine Blood Urine Nitrate Urine Bilirubin Urine Urobilinogen Ur Leukocyte Esterase Urine RBC Urine WBC Ur Epithelial Cells Urine Opiates Screen Urine Methadone Screen Ur Barbiturates Screen Ur Phencyclidine Scrn Ur Amphetamines Screen U Benzodiazepines Scrn U Oth Cocaine Metabols U Cannabinoids Screen Alcohol, Quantitative 11/30/18 11/30/18 11/30/18 17:55 17:55 17:55 WBC RBC Hgb Hct MCV MCH MCHC RDW Plt Count MPV Neut % (Auto) Lymph % (Auto) [place] % (Auto) Eos % (Auto) Baso % (Auto) Lymph # (Auto) [place] # (Auto) Eos # (Auto) Baso # (Auto) Absolute Neuts (auto) PT INR APTT Sodium Potassium Chloride Carbon Dioxide Anion Gap BUN Creatinine Est GFR ( Amer) Est GFR (Non-Af Amer) Random Glucose Calcium Phosphorus Magnesium Total Bilirubin Direct Bilirubin AST ALT Alkaline Phosphatase Ammonia 39 H Lactate Dehydrogenase Total Protein Albumin Globulin Albumin/Globulin Ratio Triglycerides Cholesterol LDL Cholesterol Direct HDL Cholesterol Free T4 1.26 TSH 3rd Generation 3.41 Urine Color Urine Appearance Urine pH Ur Specific [place] Urine Protein Urine Glucose (UA) Urine Ketones Urine Blood Urine Nitrate Urine Bilirubin Urine Urobilinogen Ur Leukocyte Esterase Urine RBC Urine WBC Ur Epithelial Cells Urine Opiates Screen Urine Methadone Screen Ur Barbiturates Screen Ur Phencyclidine Scrn Ur Amphetamines Screen U Benzodiazepines Scrn U Oth Cocaine Metabols U Cannabinoids Screen Alcohol, Quantitative 249 H 11/30/18 11/30/18 11/30/18 17:55 22:45 22:45 WBC RBC Hgb Hct MCV MCH MCHC RDW Plt Count MPV Neut % (Auto) Lymph % (Auto) [place] % (Auto) Eos % (Auto) Baso % (Auto) Lymph # (Auto) [place] # (Auto) Eos # (Auto) Baso # (Auto) Absolute Neuts (auto) PT INR APTT Sodium Potassium Chloride Carbon Dioxide Anion Gap BUN Creatinine Est GFR ( Amer) Est GFR (Non-Af Amer) Random Glucose Calcium Phosphorus 4.4 Magnesium 1.6 L Total Bilirubin Direct Bilirubin 1.2 H AST ALT Alkaline Phosphatase Ammonia Lactate Dehydrogenase Total Protein Albumin Globulin Albumin/Globulin Ratio Triglycerides 164 H Cholesterol 197 LDL Cholesterol Direct 137 H HDL Cholesterol 43 Free T4 TSH 3rd Generation Urine Color [place] Urine Appearance Clear Urine pH 7.0 Ur Specific [place] 1.010 Urine Protein Trace H Urine Glucose (UA) Negative Urine Ketones Trace H Urine Blood Small H Urine Nitrate Negative Urine Bilirubin Moderate H Urine Urobilinogen 2.0 H Ur Leukocyte Esterase Negative Urine RBC 15 - 20 H Urine WBC 2 - 5 Ur Epithelial Cells 4 - 5 Urine Opiates Screen Negative Urine Methadone Screen Negative Ur Barbiturates Screen Negative Ur Phencyclidine Scrn Negative Ur Amphetamines Screen Negative U Benzodiazepines Scrn Negative U Oth Cocaine Metabols Negative U Cannabinoids Screen Negative Alcohol, Quantitative Attending/Attestation - Attestation I have personally seen and examined this patient.: Yes I have fully participated in the care of the patient.: Yes I have reviewed all pertinent clinical information: Yes Notes (Text): 12/01/18 05:16 Patient was seen when he was in cubicle # 4. Medical record was reviewed. Agree with history , physical examination, assessment and plan.
[2018-11-30] MEDS ORDERED: Folic Acid 1 MG, Thiamine 100 MG, Multivitamin (MVI) 10 ML in Dextrose 5% In Water 1,00... IV SCH (20:45)
[2018-11-30 21:13] LABS: BILIRUBIN,DIRECT 1.2 mg/dL (0.0-0.4)
--- NOTE | 2018-11-30 21:14 | CP.PCM.CON ---
<Deepak Gilbert - Last Filed: 11/30/18 21:43> History of Present Illness - History of Present Illness History of Present Illness: Hepatobiliary Surgery Consult Note for Dr. oHugh Consult: Alcoholic Cirrhosis HPI: 38 year old male, past medical history significant for alcohol abuse, hyper tension (untreated), and DM (untreated), who presents to our emergency department with a head laceration after shaving accident. Patient noted to have significant abdominal distention with protruding umbilical hernia. CT scan shows significant ascites with fluid filled umbilical hernia. Patient has been abusing alcohol since he was 18 years old. Noticed increase in abdominal growth for the past 2 months worsening. His weight tends to fluctuate but recently has gained some weight. Denies fever, chills, nausea, vomiting, diarrhea, SOB, CP, or urinary symptoms. PMH: See above PSH: Denies FH: Noncontributory SH: Drinks 3-4 drinks (beer, whiskey, vodka - whatever is available) daily for 20 years. Denies tobacco or illicit drug use. 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 ALL: NKDA Meds: Denies PMD: Génesis Connor Review of Systems - Constitutional Constitutional: Weight Gain. absent: Chills, Fever, Weight Loss - EENT Eyes: absent: Blurred Vision, Change in Vision Nose/Mouth/Throat: absent: Nasal Congestion, Nasal Discharge - Cardiovascular Cardiovascular: absent: Chest Pain, Dyspnea - Respiratory Respiratory: absent: Cough, Dyspnea - Gastrointestinal Gastrointestinal: Bloating. absent: Abdominal Pain, Diarrhea, Nausea, Vomiting - Genitourinary Genitourinary: absent: Difficulty Urinating, Dysuria - Musculoskeletal Musculoskeletal: absent: Back Pain, Neck Pain - Integumentary Integumentary: absent: Bleeding Lesions, Changing Lesions - Neurological Neurological: absent: Confusion, Numbness - Psychiatric Psychiatric: absent: Anxiety, Depression Past Patient History - Infectious Disease Hx of Infectious Diseases: None - Past Social History Smoking Status: Never Smoked - CARDIAC Hx Cardiac Disorders: Yes Hx Hypertension: Yes - ENDOCRINE/METABOLIC Hx Endocrine Disorders: Yes Hx Diabetes Mellitus Type 2: Yes - MUSCULOSKELETAL/RHEUMATOLOGICAL Hx Falls: No - PSYCHIATRIC Hx Psychophysiologic Disorder: No Hx Substance Use: No - SURGICAL HISTORY Hx Surgeries: No - ANESTHESIA Hx Anesthesia: Yes Hx Anesthesia Reactions: No Hx Malignant Hyperthermia: No Meds Allergies/Adverse Reactions: Allergies Allergy/AdvReac Type Severity Reaction Status Date / Time No Known Allergies Allergy Verified 10/13/17 13:43 - Medications Medications: Current Medications Dextrose (Dextrose 50% Inj) 0 ml IV STAT PRN; Protocol PRN Reason: Hypoglycemia Protocol Folic Acid (Folic Acid) 1 mg PO DAILY [facility] Heparin Sodium (Porcine) (Heparin) 5,000 units SC Q8 [facility]; Protocol Dextrose (Dextrose 5% In Water 1000 Ml) 1,000 mls @ 0 mls/hr IV .Q0M PRN; Protocol PRN Reason: Hypoglycemia Protocol Folic Acid 1 mg/ Thiamine HCl 100 mg/ Multivitamins/Vitamin C 10 ml/ Dextrose 1,011.2 mls @ 100 mls/hr IV .Q10H7M [facility] Insulin Human Regular (Humulin R) 0 units SC ACHS [facility]; Protocol Lorazepam (Ativan) 2 mg IVP Q6H PRN; Protocol PRN Reason: Anxiety Multivitamins/Minerals (Therapeutic-M Tab) 1 tab PO 0800 [facility] Thiamine HCl (Vitamin B1 Tab) 100 mg PO DAILY [facility] Physical Exam - Constitutional Appears: Non-toxic, No Acute Distress Additional comments: Diaphoretic, Tremulous - Eye Exam Eye Exam: EOMI Pupil Exam: PERRL - ENT Exam ENT Exam: Mucous Membranes Moist - Respiratory Exam Respiratory Exam: Clear to Auscultation Bilateral, NORMAL BREATHING PATTERN. absent: Wheezes, Respiratory Distress - Cardiovascular Exam Cardiovascular Exam: REGULAR RHYTHM, +S1, +S2 - GI/Abdominal Exam GI & Abdominal Exam: Distended, Firm, Hernia. absent: Guarding, Rebound, Tenderness Additional comments: Abdominal varices, protruding umbilical hernia with erythema - Extremities Exam Extremities exam: Positive for: pedal edema, pedal pulses present - Back Exam Back exam: absent: CVA tenderness (L), CVA tenderness (R) - Neurological Exam Neurological exam: Alert, Oriented x3 - Psychiatric Exam Psychiatric exam: Normal Affect, Normal Mood - Skin Skin Exam: Dry, Intact, Normal Color, Warm Results - Vital Signs Recent Vital Signs: Last Vital Signs Temp 99.5 F 11/30/18 16:47 Pulse 77 11/30/18 19:42 Resp 18 11/30/18 19:42 BP 124/80 11/30/18 19:42 Pulse Ox 98 11/30/18 19:42 - Labs Result Diagrams: 11/30/18 17:55 11/30/18 17:55 Labs: Laboratory Results - last 24 hr 11/30/18 11/30/18 11/30/18 17:55 17:55 17:55 WBC 7.1 RBC 4.11 Hgb 12.7 L D Hct 38.7 L MCV 94.2 D MCH 30.9 MCHC 32.8 RDW 14.3 Plt Count 83 L MPV 10.7 Neut % (Auto) 75.1 H Lymph % (Auto) 13.6 L [place] % (Auto) 8.8 H Eos % (Auto) 2.1 Baso % (Auto) 0.4 Lymph # (Auto) 1.0 L [place] # (Auto) 0.6 Eos # (Auto) 0.2 Baso # (Auto) 0.03 Absolute Neuts (auto) 5.32 PT 14.0 H INR 1.26 APTT 37.8 Sodium 141 Potassium 3.6 Chloride 102 Carbon Dioxide 25 Anion Gap 17 BUN 4 L Creatinine 0.5 L Est GFR ( Amer) > 60 Est GFR (Non-Af Amer) > 60 Random Glucose 127 H Calcium 8.1 L Phosphorus Magnesium Total Bilirubin 1.8 H Direct Bilirubin AST 162 H D ALT 39 Alkaline Phosphatase 461 H D Ammonia Lactate Dehydrogenase 770 H Total Protein 7.3 Albumin 3.7 Globulin 3.6 Albumin/Globulin Ratio 1.0 L Triglycerides Cholesterol HDL Cholesterol Alcohol, Quantitative 11/30/18 11/30/18 11/30/18 17:55 17:55 17:55 WBC RBC Hgb Hct MCV MCH MCHC RDW Plt Count MPV Neut % (Auto) Lymph % (Auto) [place] % (Auto) Eos % (Auto) Baso % (Auto) Lymph # (Auto) [place] # (Auto) Eos # (Auto) Baso # (Auto) Absolute Neuts (auto) PT INR APTT Sodium Potassium Chloride Carbon Dioxide Anion Gap BUN Creatinine Est GFR ( Amer) Est GFR (Non-Af Amer) Random Glucose Calcium Phosphorus 4.4 Magnesium 1.6 L Total Bilirubin Direct Bilirubin 1.2 H AST ALT Alkaline Phosphatase Ammonia 39 H Lactate Dehydrogenase Total Protein Albumin Globulin Albumin/Globulin Ratio Triglycerides 164 H Cholesterol 197 HDL Cholesterol 43 Alcohol, Quantitative 249 H Assessment & Plan - Assessment and Plan (Free Text) Assessment: 38M w/ PMH significant for alcohol abuse presents w/ alcoholic cirrhosis, ascites Plan: Patient would likely benefit from paracentesis Recommend albumin Alcohol counseling Monitor for withdrawal - CIWA, Ativan Medical management per primary team D/w Dr. Ortiz PGY1 <Roshan Powell - Last Filed: 12/01/18 08:23> Meds - Medications Medications: Current Medications Dextrose (Dextrose 50% Inj) 0 ml IV STAT PRN; Protocol PRN Reason: Hypoglycemia Protocol Folic Acid (Folic Acid) 1 mg PO DAILY [facility] Heparin Sodium (Porcine) (Heparin) 5,000 units SC Q8 [facility]; Protocol Last Admin: 12/01/18 05:02 Dose: 5,000 units Dextrose (Dextrose 5% In Water 1000 Ml) 1,000 mls @ 0 mls/hr IV .Q0M PRN; Protocol PRN Reason: Hypoglycemia Protocol Folic Acid 1 mg/ Thiamine HCl 100 mg/ Multivitamins/Vitamin C 10 ml/ Dextrose 1,011.2 mls @ 100 mls/hr IV .Q10H7M [facility] Last Admin: 11/30/18 22:13 Dose: 100 mls/hr Magnesium Sulfate (Magnesium Sulfate 2 Gm/50 Ml Water) 2 gm in 50 mls @ 50 mls/hr IVPB ONCE ONE Stop: 12/01/18 08:12 Insulin Human Regular (Humulin R) 0 units SC ACHS [facility]; Protocol Last Admin: 11/30/18 22:10 Dose: Not Given Lactulose (Enulose) 20 gm PO HS [facility] Lorazepam (Ativan) 2 mg IVP Q6H PRN; Protocol PRN Reason: Anxiety Multivitamins/Minerals (Therapeutic-M Tab) 1 tab PO 0800 [facility] Pantoprazole Sodium (Protonix Inj) 40 mg IVP DAILY [facility] Thiamine HCl (Vitamin B1 Tab) 100 mg PO DAILY [facility] Results - Vital Signs Recent Vital Signs: Last Vital Signs Temp 97.8 F 12/01/18 06:00 Pulse 102 H 12/01/18 06:00 Resp 20 12/01/18 06:00 BP 161/89 H 12/01/18 06:00 Pulse Ox 99 12/01/18 06:00 - Labs Result Diagrams: 12/01/18 07:00 12/01/18 07:00 Labs: Laboratory Results - last 24 hr 11/30/18 11/30/18 11/30/18 17:55 17:55 17:55 WBC 7.1 RBC 4.11 Hgb 12.7 L D Hct 38.7 L MCV 94.2 D MCH 30.9 MCHC 32.8 RDW 14.3 Plt Count 83 L MPV 10.7 Neut % (Auto) 75.1 H Lymph % (Auto) 13.6 L [place] % (Auto) 8.8 H Eos % (Auto) 2.1 Baso % (Auto) 0.4 Lymph # (Auto) 1.0 L [place] # (Auto) 0.6 Eos # (Auto) 0.2 Baso # (Auto) 0.03 Absolute Neuts (auto) 5.32 PT 14.0 H INR 1.26 APTT 37.8 Sodium 141 Potassium 3.6 Chloride 102 Carbon Dioxide 25 Anion Gap 17 BUN 4 L Creatinine 0.5 L Est GFR ( Amer) > 60 Est GFR (Non-Af Amer) > 60 POC Glucose (mg/dL) Random Glucose 127 H Calcium 8.1 L Phosphorus Magnesium Total Bilirubin 1.8 H Direct Bilirubin AST 162 H D ALT 39 Alkaline Phosphatase 461 H D Ammonia Lactate Dehydrogenase 770 H Total Protein 7.3 Albumin 3.7 Globulin 3.6 Albumin/Globulin Ratio 1.0 L Triglycerides Cholesterol LDL Cholesterol Direct HDL Cholesterol Free T4 TSH 3rd Generation Urine Color Urine Appearance Urine pH Ur Specific [place] Urine Protein Urine Glucose (UA) Urine Ketones Urine Blood Urine Nitrate Urine Bilirubin Urine Urobilinogen Ur Leukocyte Esterase Urine RBC Urine WBC Ur Epithelial Cells Urine Opiates Screen Urine Methadone Screen Ur Barbiturates Screen Ur Phencyclidine Scrn Ur Amphetamines Screen U Benzodiazepines Scrn U Oth Cocaine Metabols U Cannabinoids Screen Alcohol, Quantitative 11/30/18 11/30/18 11/30/18 17:55 17:55 17:55 WBC RBC Hgb Hct MCV MCH MCHC RDW Plt Count MPV Neut % (Auto) Lymph % (Auto) [place] % (Auto) Eos % (Auto) Baso % (Auto) Lymph # (Auto) [place] # (Auto) Eos # (Auto) Baso # (Auto) Absolute Neuts (auto) PT INR APTT Sodium Potassium Chloride Carbon Dioxide Anion Gap BUN Creatinine Est GFR ( Amer) Est GFR (Non-Af Amer) POC Glucose (mg/dL) Random Glucose Calcium Phosphorus Magnesium Total Bilirubin Direct Bilirubin AST ALT Alkaline Phosphatase Ammonia 39 H Lactate Dehydrogenase Total Protein Albumin Globulin Albumin/Globulin Ratio Triglycerides Cholesterol LDL Cholesterol Direct HDL Cholesterol Free T4 1.26 TSH 3rd Generation 3.41 Urine Color Urine Appearance Urine pH Ur Specific [place] Urine Protein Urine Glucose (UA) Urine Ketones Urine Blood Urine Nitrate Urine Bilirubin Urine Urobilinogen Ur Leukocyte Esterase Urine RBC Urine WBC Ur Epithelial Cells Urine Opiates Screen Urine Methadone Screen Ur Barbiturates Screen Ur Phencyclidine Scrn Ur Amphetamines Screen U Benzodiazepines Scrn U Oth Cocaine Metabols U Cannabinoids Screen Alcohol, Quantitative 249 H 11/30/18 11/30/18 11/30/18 17:55 22:45 22:45 WBC RBC Hgb Hct MCV MCH MCHC RDW Plt Count MPV Neut % (Auto) Lymph % (Auto) [place] % (Auto) Eos % (Auto) Baso % (Auto) Lymph # (Auto) [place] # (Auto) Eos # (Auto) Baso # (Auto) Absolute Neuts (auto) PT INR APTT Sodium Potassium Chloride Carbon Dioxide Anion Gap BUN Creatinine Est GFR ( Amer) Est GFR (Non-Af Amer) POC Glucose (mg/dL) Random Glucose Calcium Phosphorus 4.4 Magnesium 1.6 L Total Bilirubin Direct Bilirubin 1.2 H AST ALT Alkaline Phosphatase Ammonia Lactate Dehydrogenase Total Protein Albumin Globulin Albumin/Globulin Ratio Triglycerides 164 H Cholesterol 197 LDL Cholesterol Direct 137 H HDL Cholesterol 43 Free T4 TSH 3rd Generation Urine Color [place] Urine Appearance Clear Urine pH 7.0 Ur Specific [place] 1.010 Urine Protein Trace H Urine Glucose (UA) Negative Urine Ketones Trace H Urine Blood Small H Urine Nitrate Negative Urine Bilirubin Moderate H Urine Urobilinogen 2.0 H Ur Leukocyte Esterase Negative Urine RBC 15 - 20 H Urine WBC 2 - 5 Ur Epithelial Cells 4 - 5 Urine Opiates Screen Negative Urine Methadone Screen Negative Ur Barbiturates Screen Negative Ur Phencyclidine Scrn Negative Ur Amphetamines Screen Negative U Benzodiazepines Scrn Negative U Oth Cocaine Metabols Negative U Cannabinoids Screen Negative Alcohol, Quantitative 12/01/18 12/01/18 12/01/18 07:00 07:00 07:42 WBC 8.5 RBC 4.08 Hgb 12.2 L Hct 38.4 L MCV 94.1 MCH 29.9 MCHC 31.8 RDW 14.4 Plt Count 79 L MPV 12.0 H Neut % (Auto) 83.2 H Lymph % (Auto) 7.4 L [place] % (Auto) 8.8 H Eos % (Auto) 0.4 L Baso % (Auto) 0.2 Lymph # (Auto) 0.6 L [place] # (Auto) 0.8 H Eos # (Auto) 0.0 Baso # (Auto) 0.02 Absolute Neuts (auto) 7.11 H PT INR APTT Sodium 136 Potassium 3.5 L Chloride 99 Carbon Dioxide 24 Anion Gap 16 BUN 3 L Creatinine 0.4 L Est GFR ( Amer) > 60 Est GFR (Non-Af Amer) > 60 POC Glucose (mg/dL) 123 H Random Glucose 120 H Calcium 8.2 L Phosphorus 3.7 Magnesium 1.4 L Total Bilirubin 2.4 H Direct Bilirubin AST 165 H ALT 36 Alkaline Phosphatase 490 H Ammonia Lactate Dehydrogenase Total Protein 7.8 Albumin 4.0 Globulin 3.8 Albumin/Globulin Ratio 1.1 Triglycerides Cholesterol LDL Cholesterol Direct HDL Cholesterol Free T4 TSH 3rd Generation Urine Color Urine Appearance Urine pH Ur Specific [place] Urine Protein Urine Glucose (UA) Urine Ketones Urine Blood Urine Nitrate Urine Bilirubin Urine Urobilinogen Ur Leukocyte Esterase Urine RBC Urine WBC Ur Epithelial Cells Urine Opiates Screen Urine Methadone Screen Ur Barbiturates Screen Ur Phencyclidine Scrn Ur Amphetamines Screen U Benzodiazepines Scrn U Oth Cocaine Metabols U Cannabinoids Screen Alcohol, Quantitative Assessment & Plan - Assessment and Plan (Free Text) Plan: All medical record entries made by the rersident were at my direction. I have reviewed the chart and agree that the record accurately reflects my personal performance of the history, physical exam, and medical decision making Patient has acute alcoholic hepatitis in the setting of alcoholic cirrhosis. At this point if his ascites is causing pain or difficulty breathing he should undergo paracentesis. obviously he should remain abstinent from further use of alcohol. His discreminent factor appears low. Albumin 4.0, would check post paracentesis, if performed. May consider starting beclofen to reduce alcohol craving
[2018-11-30 21:32] LABS: FREE T4 1.26 ng/dL (0.78-2.19)
[2018-11-30] MEDS: Insulin Regular 1 UNITS/0.01 ML ML SC SCH (22:10)
[2018-11-30 22:52] LABS: URINE BILIRUBIN MODERATE (NEGATIVE); URINE BLOOD SMALL (NEGATIVE); URINE GLUCOSE (UA) NEGATIVE (NEGATIVE); URINE LEUKOCYTE ESTERASE NEGATIVE Leu/uL (NEGATIVE); URINE PROTEIN TRACE mg/dL (<30 mg/dL)
[2018-11-30 22:58] LABS: URINE APPEARANCE CLEAR (CLEAR); URINE COLOR AMBER (YELLOW)
[2018-11-30 22:59] LABS: URINE RBC 15 - 20 /hpf (0-2)
[2018-11-30 23:21] LABS: BARBITURATES, UR NEGATIVE (NEGATIVE); BENZODIAZEPINES, UR NEGATIVE (NEGATIVE); OPIATES, UR NEGATIVE (NEGATIVE); PHENCYCLIDINE, UR NEGATIVE (NEGATIVE)
[2018-12-01] MEDS ORDERED: Magnesium Sulfate 2 gm/50 ml 2 GM/50 ML BAG IVPB ONE (07:13)
[2018-12-01 07:34] LABS: BASO # 0.02 K/mm3 (0.0-2.0); BASO % 0.2 % (0.0-3.0); EOS % 0.4 % (1.5-5.0); HEMOGLOBIN 12.2 g/dL (14.0-18.0); LYMPH # 0.6 (1.2-3.4); LYMPH % 7.4 % (22.0-35.0); MEAN CELL VOLUME 94.1 fl (80.0-105.0); MEAN CORPUSCULAR HEMOGLOBIN 29.9 pg (25.0-35.0); MEAN CORPUSCULAR HGB CONC 31.8 g/dl (31.0-37.0); MONO # 0.8 (0.1-0.6); MONO % 8.8 % (1.0-6.0); RBC 4.08 10^6/uL (3.5-6.1); RED CELL DISTRIBUTION WIDTH 14.4 % (11.5-14.5); WHITE BLOOD COUNT 8.5 10^3/uL (4.5-11.0)
[2018-12-01 07:49] LABS: ALB/GLOB RATIO 1.1 (1.1-1.8); ALT/SGPT 36 U/L (7-56); AST/SGOT 165 U/L (17-59); BLOOD UREA NITROGEN 3 mg/dL (7-21); CALCIUM 8.2 mg/dL (8.4-10.5); GFR NON-AFRICAN AMERICAN > 60
[2018-12-01] MEDS: Insulin Regular 1 UNITS/0.01 ML ML SC SCH ×4 (08:24→21:22)
[2018-12-01] MEDS ORDERED: Potassium Chloride 20 mEq ER Tab PO STA (08:34)
[2018-12-01] MEDS: Multivitamin With Minerals Tab PO SCH (08:56)
--- NOTE | 2018-12-01 09:01 | US ---
HISTORY: ascites COMPARISON: Abdominal ultrasound performed 12/25/16 TECHNIQUE: Sonographic evaluation of the abdomen. FINDINGS: LIVER: Measures 18.7 cm in sagittal dimension. Nodular hepatic contour. Echogenic liver may be seen in setting of hepatic parenchymal disease or fatty infiltration. No focal hepatic mass identified. The main portal vein appears patent with normal directional flow. No intrahepatic bile duct dilatation. Small abdominal ascites. GALLBLADDER: No gallstones. No gallbladder wall thickening. Negative sonographic Champagne's sign as assessed by the printed circuit board assembler. COMMON BILE DUCT: Measures 3 mm. PANCREAS: Not well visualized. RIGHT KIDNEY: Measures 12.3 x 5.1 x 7.4 cm. No obstructing calculus or hydronephrosis identified. LEFT KIDNEY: Measures 10.8 x 6.7 x 6.2 cm. No obstructing calculus or hydronephrosis identified. SPLEEN: Measures approximately 12.5 cm. AORTA: Limited views appear unremarkable. IVC: Limited views appear unremarkable. OTHER FINDINGS: None. IMPRESSION: Echogenic liver may be seen in setting of hepatic parenchymal disease or fatty infiltration. Borderline hepatomegaly. Nodular hepatic contour. Splenomegaly. Small abdominal ascites.
--- NOTE | 2018-12-01 09:10 | CP.PCM.PN ---
<Arie Tuttle - Last Filed: 12/01/18 14:47> Subjective - Date & Time of Evaluation Date of Evaluation: 12/01/18 Time of Evaluation: 09:20 - Subjective Subjective: PGY1 Hepatobiliary surgery progress note for Dr. Brar Pt seen and examined at bedside. Pt resting comfortably eating breakfast. Denies fever, chills, chest pain, sob, abdominal pain, n/v/d, hematochezia, melena, dysuria, hematuria. Reports some difficulty in taking a deep breath due to the enlarged abdomen. Last BM was this morning and was normal as per pt. Pt has no difficulties urinating. Objective - Vital Signs/Intake and Output Vital Signs (last 24 hours): Temp Pulse Resp BP Pulse Ox 97.8 F 102 H 20 161/89 H 99 12/01/18 06:00 12/01/18 06:00 12/01/18 06:00 12/01/18 06:00 12/01/18 06:00 Intake and Output: 12/01/18 12/01/18 06:59 18:59 Intake Total 1180 Balance 1180 - Medications Medications: Current Medications Dextrose (Dextrose 50% Inj) 0 ml IV STAT PRN; Protocol PRN Reason: Hypoglycemia Protocol Folic Acid (Folic Acid) 1 mg PO DAILY [facility] Last Admin: 12/01/18 09:00 Dose: 1 mg Heparin Sodium (Porcine) (Heparin) 5,000 units SC Q8 [facility]; Protocol Last Admin: 12/01/18 05:02 Dose: 5,000 units Dextrose (Dextrose 5% In Water 1000 Ml) 1,000 mls @ 0 mls/hr IV .Q0M PRN; Protocol PRN Reason: Hypoglycemia Protocol Folic Acid 1 mg/ Thiamine HCl 100 mg/ Multivitamins/Vitamin C 10 ml/ Dextrose 1,011.2 mls @ 100 mls/hr IV .Q10H7M [facility] Last Admin: 11/30/18 22:13 Dose: 100 mls/hr Insulin Human Regular (Humulin R) 0 units SC ACHS [facility]; Protocol Last Admin: 12/01/18 08:24 Dose: Not Given Lactulose (Enulose) 20 gm PO HS [facility] Lorazepam (Ativan) 2 mg IVP Q6H PRN; Protocol PRN Reason: Anxiety Last Admin: 12/01/18 08:56 Dose: 2 mg Multivitamins/Minerals (Therapeutic-M Tab) 1 tab PO 0800 [facility] Last Admin: 12/01/18 08:56 Dose: 1 tab Pantoprazole Sodium (Protonix Inj) 40 mg IVP DAILY [facility] Last Admin: 12/01/18 09:00 Dose: 40 mg Thiamine HCl (Vitamin B1 Tab) 100 mg PO DAILY [facility] Last Admin: 12/01/18 09:00 Dose: 100 mg - Labs Labs: 12/01/18 07:00 12/01/18 07:00 PT 14.0 SECONDS (9.4-12.5) H 11/30/18 17:55 INR 1.26 11/30/18 17:55 APTT 37.8 Seconds (26.9-38.3) 11/30/18 17:55 - Additional Findings Additional findings: - Constitutional Appears: Non-toxic, No Acute Distress - Head Exam Additional comments: (+) dressing around the scalp, c/d/i - Eye Exam Eye Exam: EOMI, Scleral icterus (mild) - ENT Exam ENT Exam: Mucous Membranes Moist Additional comments: (+) tongue tremors, (-) frenulum icterus - Respiratory Exam Respiratory Exam: Clear to Ausculation Bilateral. absent: Accessory Muscle Use, Decreased Breath Sounds, Rales, Rhonchi, Wheezes, Stridor, NORMAL BREATHING PATTERN (pt has tachypnea secondary to pressure from ascites, unable to take a deep breath due to this) - Cardiovascular Exam Cardiovascular Exam: Tachycardia (approximately 120), +S1, +S2. absent: Diastolic murmur - GI/Abdominal Exam GI & Abdominal Exam: Distended (ascites), Hernia (reducible 7 cm by 5 cm umbilical hernia with erythema, without warmth, tenderness. (+) hepatomegaly, splenomegaly. No bowel sounds heard within the hernia sac). absent: Firm, Guarding, Rigid, Tenderness, Rebound - Extremities Exam Extremities Exam: Pedal Edema (1+ pitting edema bilateral lower extremities). absent: Calf Tenderness Additional comments: (+) tremors on outstretched hands, no asterixis - Back Exam Back Exam: NORMAL INSPECTION. absent: CVA tenderness (L), CVA tenderness (R) - Neurological Exam Neurological Exam: Alert, Awake - Psychiatric Exam Psychiatric exam: Agitated, Normal Affect, Normal Mood - Skin Skin Exam: Dry, Normal Color, Warm Assessment and Plan - Assessment and Plan (Free Text) Assessment: This is a 38 year old male w/ PMH significant for alcohol abuse presents w/ alcoholic cirrhosis, ascites. Plan: CTAP shows hepatomegaly, splenomegaly, abdominal and pelvic ascites. Nodular hepatic contour consistent with cirrhosis. Abd US shows similar findings. Labs reviewed, stable thrombocytopenia, normal coags AST/ALT/ALP is 165/36/490. Tbili is uptrending 2.4 up from 1.8 Pt afebrile, without leukocytosis Patient would likely benefit from paracentesis Recommend albumin if paracentesis performed, pt's albumin level is normal at this time Discussed in details the buttermaker continuous churn sequelae of EtOH use, and counseled on cessation Continue to monitor for withdrawal symptoms - CIWA, Ativan ordered as per primary team Medical management per primary team Cirrhosis workup as per primary/GI GI, Dr. Gallagher is consulted. Meld-Na score is 15 <2% 90 day mortality Child driver score is Class B 30% abdominal surgery rebeka-operative mortality NO hepatobiliary intervention at this time. Please reconsult as needed. Thank you for this interesting consult. Case discussed with Dr. Alcantara PGY1 Page # [phone] <Roshan Powell - Last Filed: 12/04/18 17:29> Objective - Vital Signs/Intake and Output Vital Signs (last 24 hours): Temp Pulse Resp BP Pulse Ox 99.3 F 92 H 42 H 136/81 72 L 12/04/18 03:45 12/04/18 16:50 12/04/18 16:40 12/04/18 16:00 12/03/18 14:40 Intake and Output: 12/04/18 12/04/18 06:59 18:59 Intake Total 800 Output Total 3 Balance 797 - Medications Medications: Current Medications Dextrose (Dextrose 50% Inj) 0 ml IV STAT PRN; Protocol PRN Reason: Hypoglycemia Protocol Folic Acid (Folic Acid) 1 mg PO DAILY [facility] Last Admin: 12/04/18 10:10 Dose: 1 mg Furosemide (Lasix) 20 mg PO DAILY [facility] Dextrose (Dextrose 5% In Water 1000 Ml) 1,000 mls @ 0 mls/hr IV .Q0M PRN; Protocol PRN Reason: Hypoglycemia Protocol Lactulose (Enulose) 20 gm PO HS [facility] Lorazepam (Ativan) 1 mg IVP Q2H PRN; Protocol PRN Reason: Symptoms of alcohol withdrawl Last Admin: 12/02/18 21:06 Dose: 1 mg Multivitamins/Minerals (Therapeutic-M Tab) 1 tab PO 0800 [facility] Last Admin: 12/04/18 07:59 Dose: 1 tab Pantoprazole Sodium (Protonix Ec Tab) 40 mg PO ACB [facility] Last Admin: 12/04/18 07:59 Dose: 40 mg Spironolactone (Aldactone) 50 mg PO DAILY [facility] Last Admin: 12/04/18 10:10 Dose: 50 mg Thiamine HCl (Vitamin B1 Tab) 100 mg PO DAILY [facility] Last Admin: 12/04/18 10:10 Dose: 100 mg - Labs Labs: 12/04/18 06:35 12/04/18 06:35 PT 14.3 SECONDS (9.4-12.5) H 12/01/18 11:10 INR 1.27 12/01/18 11:10 APTT 37.8 Seconds (26.9-38.3) 11/30/18 17:55 Assessment and Plan - Assessment and Plan (Free Text) Assessment: All medical record entries made by the resident were at my direction. I have reviewed the chart and agree that the record accurately reflects my personal performance of the history, physical exam, and medical decision making.
--- NOTE | 2018-12-01 09:10 | CP.PCM.PN ---
Subjective - Date & Time of Evaluation Date of Evaluation: 12/01/18 Time of Evaluation: 09:12 - Subjective Subjective: PGY1 General surgery progress note for Dr. Rodrigues Pt seen and examined at bedside. Pt resting comfortably eating breakfast. Denies fever, chills, chest pain, sob, abdominal pain, n/v/d, hematochezia, melena, dysuria, hematuria. Reports some difficulty in taking a deep breath due to the enlarged abdomen. Last BM was this morning and was normal as per pt. Pt has no difficulties urinating. Objective - Vital Signs/Intake and Output Vital Signs (last 24 hours): Temp Pulse Resp BP Pulse Ox 97.8 F 102 H 20 161/89 H 99 12/01/18 06:00 12/01/18 06:00 12/01/18 06:00 12/01/18 06:00 12/01/18 06:00 Intake and Output: 12/01/18 12/01/18 06:59 18:59 Intake Total 1180 Balance 1180 - Medications Medications: Current Medications Dextrose (Dextrose 50% Inj) 0 ml IV STAT PRN; Protocol PRN Reason: Hypoglycemia Protocol Folic Acid (Folic Acid) 1 mg PO DAILY [facility] Last Admin: 12/01/18 09:00 Dose: 1 mg Heparin Sodium (Porcine) (Heparin) 5,000 units SC Q8 [facility]; Protocol Last Admin: 12/01/18 05:02 Dose: 5,000 units Dextrose (Dextrose 5% In Water 1000 Ml) 1,000 mls @ 0 mls/hr IV .Q0M PRN; Protocol PRN Reason: Hypoglycemia Protocol Folic Acid 1 mg/ Thiamine HCl 100 mg/ Multivitamins/Vitamin C 10 ml/ Dextrose 1,011.2 mls @ 100 mls/hr IV .Q10H7M [facility] Last Admin: 11/30/18 22:13 Dose: 100 mls/hr Insulin Human Regular (Humulin R) 0 units SC ACHS [facility]; Protocol Last Admin: 12/01/18 08:24 Dose: Not Given Lactulose (Enulose) 20 gm PO HS [facility] Lorazepam (Ativan) 2 mg IVP Q6H PRN; Protocol PRN Reason: Anxiety Last Admin: 12/01/18 08:56 Dose: 2 mg Multivitamins/Minerals (Therapeutic-M Tab) 1 tab PO 0800 [facility] Last Admin: 12/01/18 08:56 Dose: 1 tab Pantoprazole Sodium (Protonix Inj) 40 mg IVP DAILY [facility] Last Admin: 12/01/18 09:00 Dose: 40 mg Thiamine HCl (Vitamin B1 Tab) 100 mg PO DAILY [facility] Last Admin: 12/01/18 09:00 Dose: 100 mg - Labs Labs: 12/01/18 07:00 12/01/18 07:00 PT 14.0 SECONDS (9.4-12.5) H 11/30/18 17:55 INR 1.26 11/30/18 17:55 APTT 37.8 Seconds (26.9-38.3) 11/30/18 17:55 - Constitutional Appears: Non-toxic, No Acute Distress - Head Exam Additional comments: (+) dressing around the scalp, c/d/i - Eye Exam Eye Exam: EOMI, Scleral icterus (mild) - ENT Exam ENT Exam: Mucous Membranes Moist Additional comments: (+) tongue tremors, (-) frenulum icterus - Respiratory Exam Respiratory Exam: Clear to Ausculation Bilateral. absent: Accessory Muscle Use, Decreased Breath Sounds, Rales, Rhonchi, Wheezes, Stridor, NORMAL BREATHING PATTERN (pt has tachypnea secondary to pressure from ascites, unable to take a deep breath due to this) - Cardiovascular Exam Cardiovascular Exam: Tachycardia (approximately 120), +S1, +S2. absent: Diastolic murmur - GI/Abdominal Exam GI & Abdominal Exam: Distended (ascites), Hernia (reducible 7 cm by 5 cm umbilical hernia with erythema, without warmth, tenderness. no bowel sounds heard within the hernia sac). absent: Firm, Guarding, Rigid, Tenderness, Rebound - Extremities Exam Extremities Exam: Pedal Edema (1+ pitting edema bilateral lower extremities). absent: Calf Tenderness Additional comments: (+) tremors on outstretched hands, no asterixis - Back Exam Back Exam: NORMAL INSPECTION. absent: CVA tenderness (L), CVA tenderness (R) - Neurological Exam Neurological Exam: Alert, Awake - Psychiatric Exam Psychiatric exam: Agitated, Normal Affect, Normal Mood - Skin Skin Exam: Dry, Normal Color, Warm Assessment and Plan - Assessment and Plan (Free Text) Assessment: This is a 38 year old male who presents w/ ascites likely 2/2 alcoholic liver cirrhosis w/ protruding umbilical hernia and overlying erythematous skin changes. Plan: Reducible umbilical hernia Patient's history, presentation and laboratory values are likely due to alcoholic cirrhosis with ascites Patient states overlying umbilical erythema has been present for 1.5-2 months, coinciding with his ascites build up Recommend therapeutic paracentesis for worsening ascites CTAP - umbilical hernia with fluid, no bowel loops or fat, no obstruction. Recommended alcohol cessation/counseling No acute surgical intervention at this present time, expect improvement with decrease of intraabdominal pressure with paracentesis Recommendation for elective umbilical hernia repair when pt no longer has ascites. Child driver score is Class B 30% abdominal surgery rebeka-operative mortality Case discussed with Dr. Lilia Tuttle PGY1 Pager # [phone]
--- NOTE | 2018-12-01 09:30 | US ---
HISTORY: Leg pain and swelling. Evaluate for DVT PHYSICIAN(S): Bernardo Dong MD. TECHNIQUE: Duplex sonography and color-flow Doppler with graded compression were used to evaluate the deep venous systems of both lower extremities. FINDINGS: The visualized deep venous systems of both lower extremities are sonographically normal and compressible. Normal wave forms and augmentation are seen. There is no sonographic evidence for deep venous thrombosis in the visualized segments of both lower extremities. IMPRESSION: No sonographic evidence for deep venous thrombosis in the visualized segments of both lower extremities.
--- NOTE | 2018-12-01 09:41 | CT ---
Date of service: 11/30/2018 PROCEDURE: CT Abdomen and Pelvis with contrast HISTORY: cirrhosis COMPARISON: Abdominal ultrasound performed 12/25/16 and 12/01/18 TECHNIQUE: Contrast dose: 95 mL Omnipaque 350 IV Radiation dose: Total exam DLP = 870.53 mGy-cm. This CT exam was performed using one or more of the following dose reduction techniques: Automated exposure control, adjustment of the mA and/or kV according to patient size, and/or use of iterative reconstruction technique. FINDINGS: LOWER THORAX: Small bilateral pleural effusions and bilateral lower lobe consolidations. 5 mm right lower lobe calcified granuloma. Small hiatal hernia/distal esophageal wall thickening. LIVER: Hypoattenuation of the liver compatible with hepatic steatosis. Hepatomegaly. Nodular hepatic contour consistent with cirrhosis. GALLBLADDER AND BILE DUCTS: Unremarkable. PANCREAS: Unremarkable. SPLEEN: Borderline splenomegaly. ADRENALS: Unremarkable. KIDNEYS AND URETERS: The kidneys enhance symmetrically. No hydronephrosis or obstructing calculus identified. VASCULATURE: No aortic aneurysm. No atherosclerotic calcification or mural plaque present. BOWEL: Stomach is nondistended. Lack of oral contrast limits evaluation for bowel pathology. Mucosal thickening of the right and proximal transverse colon. APPENDIX: The appendix is not identified. PERITONEUM: Large abdominal and pelvic ascites. No definite free air. LYMPH NODES: No bulky adenopathy identified. BLADDER: Mildly thick-walled under distended urinary bladder. REPRODUCTIVE: Prostate gland measures approximately 3.4 x 4.0 cm. BONES: No acute osseous abnormality is detected. OTHER FINDINGS: Umbilical hernia containing fluid. IMPRESSION: Small bilateral pleural effusions and associated consolidations. Large abdominal and pelvic ascites. Hepatomegaly. Echogenic liver may be seen in setting of hepatic parenchymal disease or fatty infiltration. Nodular hepatic contour consistent with cirrhosis. Borderline splenomegaly. Mucosal thickening of the right and proximal transverse colon; correlate clinically for history of colitis. Additional findings as above. Preliminary impression was provided by [facility].
--- NOTE | 2018-12-01 11:16 | CARD ---
APPROVED REPORT Date of service: 11/30/2018 EKG Measurement Heart [id number] <Conclusion> Sinus tachycardia Minimal voltage criteria for LVH, may be normal variant Borderline ECG
[2018-12-01 11:26] LABS: INR 1.27; PROTHROMBIN TIME 14.3 SECONDS (9.4-12.5)
[2018-12-01 12:21] LABS: HEPATITIS B SURFACE AG Negative (NEGATIVE)
--- NOTE | 2018-12-01 12:24 | CP.PCM.CON ---
<SanthoshAnne Marie - Last Filed: 12/01/18 15:56> History of Present Illness - History of Present Illness History of Present Illness: Anne Marie Trevizo, PGY-1, GI Consult Note for Dr. Gallagher 38 year old male with past medical history of alcohol abuse, hypertension, and diabetes mellitus presents with right head laceration after shaving his head yesterday morning. He reports that the lesion was bleeding but subsequently stopped. He went to the work and upon his way home, his laceration started to bleed again. He subsequently went to the emergency department. He was found to have significant abdominal distention upon evaluation. He has had this abdominal distension for 2 months along with an umbilical hernia. He reports no significant weight loss or gain, no change in appetite, or any other symptoms including fever, headaches, chest pain, shortness of breath, nausea, vomiting, constipation, diarrhea, dysuria, hematuria. He has a significant history of alcohol abuse drinking 8-10 drinks daily since he was 17. He has [place] [facility] and was found to have hepatic steatosis on prior abdominal ultrasounds. Abdominal CT on this admission shows likely cirrhosis of liver with significant ascites. PMH: as stated above PSH: denies FMHx: denies significant GI malignancy in family SHx: drinks 7-8 drinks daily since the age of 17, denies tobacco or recreational drug use Allergies: NKDA PMD: Connor No prior EGD or colonoscopy Review of Systems - Review of Systems Review of Systems: except as mentioned in HPI Past Patient History - Infectious Disease Hx of Infectious Diseases: None - Past Social History Smoking Status: Never Smoked - CARDIAC Hx Cardiac Disorders: Yes Hx Hypertension: Yes - PULMONARY Hx Respiratory Disorders: No - NEUROLOGICAL Hx Neurological Disorder: No - HEENT Hx HEENT Problems: No - RENAL Hx Chronic Kidney Disease: No - ENDOCRINE/METABOLIC Hx Endocrine Disorders: Yes Hx Diabetes Mellitus Type 2: Yes - HEMATOLOGICAL/ONCOLOGICAL Hx Blood Disorders: No - INTEGUMENTARY Hx Dermatological Problems: No - MUSCULOSKELETAL/RHEUMATOLOGICAL Hx Falls: No - GASTROINTESTINAL Hx Gastrointestinal Disorders: No - GENITOURINARY/GYNECOLOGICAL Hx Genitourinary Disorders: No - PSYCHIATRIC Hx Psychophysiologic Disorder: No Hx Substance Use: No - SURGICAL HISTORY Hx Surgeries: No - ANESTHESIA Hx Anesthesia: Yes Hx Anesthesia Reactions: No Hx Malignant Hyperthermia: No Meds Allergies/Adverse Reactions: Allergies Allergy/AdvReac Type Severity Reaction Status Date / Time No Known Allergies Allergy Verified 10/13/17 13:43 - Medications Medications: Current Medications Dextrose (Dextrose 50% Inj) 0 ml IV STAT PRN; Protocol PRN Reason: Hypoglycemia Protocol Folic Acid (Folic Acid) 1 mg PO DAILY [facility] Last Admin: 12/01/18 09:00 Dose: 1 mg Furosemide (Lasix) 20 mg PO DAILY [facility] Heparin Sodium (Porcine) (Heparin) 5,000 units SC Q8 [facility]; Protocol Last Admin: 12/01/18 05:02 Dose: 5,000 units Dextrose (Dextrose 5% In Water 1000 Ml) 1,000 mls @ 0 mls/hr IV .Q0M PRN; Protocol PRN Reason: Hypoglycemia Protocol Insulin Human Regular (Humulin R) 0 units SC ACHS [facility]; Protocol Last Admin: 12/01/18 08:24 Dose: Not Given Lactulose (Enulose) 20 gm PO HS [facility] Lorazepam (Ativan) 2 mg IVP Q6H [facility]; Protocol Last Admin: 12/01/18 09:46 Dose: Not Given Lorazepam (Ativan) 1 mg IVP Q2H PRN; Protocol PRN Reason: Symptoms of alcohol withdrawl Multivitamins/Minerals (Therapeutic-M Tab) 1 tab PO 0800 [facility] Last Admin: 12/01/18 08:56 Dose: 1 tab Pantoprazole Sodium (Protonix Inj) 40 mg IVP DAILY [facility] Last Admin: 12/01/18 09:00 Dose: 40 mg Spironolactone (Aldactone) 50 mg PO DAILY [facility] Thiamine HCl (Vitamin B1 Tab) 100 mg PO DAILY [facility] Last Admin: 12/01/18 09:00 Dose: 100 mg Physical Exam - Constitutional Appears: Well, Non-toxic, No Acute Distress - Head Exam Head Exam: ATRAUMATIC, NORMAL INSPECTION, NORMOCEPHALIC - Eye Exam Eye Exam: EOMI, PERRL Additional comments: anicteric - ENT Exam ENT Exam: Mucous Membranes Moist - Respiratory Exam Respiratory Exam: Clear to Auscultation Bilateral, NORMAL BREATHING PATTERN - Cardiovascular Exam Cardiovascular Exam: REGULAR RHYTHM, RRR, +S1, +S2 - GI/Abdominal Exam GI & Abdominal Exam: Distended, Firm, Hernia (umbilical), Hypoactive Bowel Sounds. absent: Rebound, Rigid, Tenderness - Extremities Exam Extremities exam: Positive for: full ROM, normal inspection. Negative for: pedal edema - Neurological Exam Neurological exam: Alert, CN II-XII Intact, Oriented x3 - Skin Skin Exam: Dry, Intact, Normal Color Results - Vital Signs Recent Vital Signs: Last Vital Signs Temp 97.8 F 12/01/18 06:00 Pulse 115 H 12/01/18 10:00 Resp 20 12/01/18 06:00 BP 161/89 H 12/01/18 06:00 Pulse Ox 99 12/01/18 06:00 - Labs Result Diagrams: 12/01/18 07:00 12/01/18 07:00 Labs: Laboratory Results - last 24 hr 11/30/18 11/30/18 11/30/18 17:55 17:55 17:55 WBC 7.1 RBC 4.11 Hgb 12.7 L D Hct 38.7 L MCV 94.2 D MCH 30.9 MCHC 32.8 RDW 14.3 Plt Count 83 L MPV 10.7 Neut % (Auto) 75.1 H Lymph % (Auto) 13.6 L [place] % (Auto) 8.8 H Eos % (Auto) 2.1 Baso % (Auto) 0.4 Lymph # (Auto) 1.0 L [place] # (Auto) 0.6 Eos # (Auto) 0.2 Baso # (Auto) 0.03 Absolute Neuts (auto) 5.32 PT 14.0 H INR 1.26 APTT 37.8 Sodium 141 Potassium 3.6 Chloride 102 Carbon Dioxide 25 Anion Gap 17 BUN 4 L Creatinine 0.5 L Est GFR ( Amer) > 60 Est GFR (Non-Af Amer) > 60 POC Glucose (mg/dL) Random Glucose 127 H Hemoglobin A1c Calcium 8.1 L Phosphorus Magnesium Total Bilirubin 1.8 H Direct Bilirubin AST 162 H D ALT 39 Alkaline Phosphatase 461 H D Ammonia Lactate Dehydrogenase 770 H Total Protein 7.3 Albumin 3.7 Globulin 3.6 Albumin/Globulin Ratio 1.0 L Triglycerides Cholesterol LDL Cholesterol Direct HDL Cholesterol Free T4 TSH 3rd Generation Urine Color Urine Appearance Urine pH Ur Specific Leroy Urine Protein Urine Glucose (UA) Urine Ketones Urine Blood Urine Nitrate Urine Bilirubin Urine Urobilinogen Ur Leukocyte Esterase Urine RBC Urine WBC Ur Epithelial Cells Urine Opiates Screen Urine Methadone Screen Ur Barbiturates Screen Ur Phencyclidine Scrn Ur Amphetamines Screen U Benzodiazepines Scrn U Oth Cocaine Metabols U Cannabinoids Screen Alcohol, Quantitative 11/30/18 11/30/18 11/30/18 17:55 17:55 17:55 WBC RBC Hgb Hct MCV MCH MCHC RDW Plt Count MPV Neut % (Auto) Lymph % (Auto) [place] % (Auto) Eos % (Auto) Baso % (Auto) Lymph # (Auto) [place] # (Auto) Eos # (Auto) Baso # (Auto) Absolute Neuts (auto) PT INR APTT Sodium Potassium Chloride Carbon Dioxide Anion Gap BUN Creatinine Est GFR ( Amer) Est GFR (Non-Af Amer) POC Glucose (mg/dL) Random Glucose Hemoglobin A1c 5.7 Calcium Phosphorus Magnesium Total Bilirubin Direct Bilirubin AST ALT Alkaline Phosphatase Ammonia 39 H Lactate Dehydrogenase Total Protein Albumin Globulin Albumin/Globulin Ratio Triglycerides Cholesterol LDL Cholesterol Direct HDL Cholesterol Free T4 TSH 3rd Generation Urine Color Urine Appearance Urine pH Ur Specific Leroy Urine Protein Urine Glucose (UA) Urine Ketones Urine Blood Urine Nitrate Urine Bilirubin Urine Urobilinogen Ur Leukocyte Esterase Urine RBC Urine WBC Ur Epithelial Cells Urine Opiates Screen Urine Methadone Screen Ur Barbiturates Screen Ur Phencyclidine Scrn Ur Amphetamines Screen U Benzodiazepines Scrn U Oth Cocaine Metabols U Cannabinoids Screen Alcohol, Quantitative 249 H 11/30/18 11/30/18 11/30/18 17:55 17:55 22:45 WBC RBC Hgb Hct MCV MCH MCHC RDW Plt Count MPV Neut % (Auto) Lymph % (Auto) [place] % (Auto) Eos % (Auto) Baso % (Auto) Lymph # (Auto) [place] # (Auto) Eos # (Auto) Baso # (Auto) Absolute Neuts (auto) PT INR APTT Sodium Potassium Chloride Carbon Dioxide Anion Gap BUN Creatinine Est GFR ( Amer) Est GFR (Non-Af Amer) POC Glucose (mg/dL) Random Glucose Hemoglobin A1c Calcium Phosphorus 4.4 Magnesium 1.6 L Total Bilirubin Direct Bilirubin 1.2 H AST ALT Alkaline Phosphatase Ammonia Lactate Dehydrogenase Total Protein Albumin Globulin Albumin/Globulin Ratio Triglycerides 164 H Cholesterol 197 LDL Cholesterol Direct 137 H HDL Cholesterol 43 Free T4 1.26 TSH 3rd Generation 3.41 Urine Color [place] Urine Appearance Clear Urine pH 7.0 Ur Specific Leroy 1.010 Urine Protein Trace H Urine Glucose (UA) Negative Urine Ketones Trace H Urine Blood Small H Urine Nitrate Negative Urine Bilirubin Moderate H Urine Urobilinogen 2.0 H Ur Leukocyte Esterase Negative Urine RBC 15 - 20 H Urine WBC 2 - 5 Ur Epithelial Cells 4 - 5 Urine Opiates Screen Urine Methadone Screen Ur Barbiturates Screen Ur Phencyclidine Scrn Ur Amphetamines Screen U Benzodiazepines Scrn U Oth Cocaine Metabols U Cannabinoids Screen Alcohol, Quantitative 11/30/18 12/01/18 12/01/18 22:45 07:00 07:00 WBC 8.5 RBC 4.08 Hgb 12.2 L Hct 38.4 L MCV 94.1 MCH 29.9 MCHC 31.8 RDW 14.4 Plt Count 79 L MPV 12.0 H Neut % (Auto) 83.2 H Lymph % (Auto) 7.4 L [place] % (Auto) 8.8 H Eos % (Auto) 0.4 L Baso % (Auto) 0.2 Lymph # (Auto) 0.6 L [place] # (Auto) 0.8 H Eos # (Auto) 0.0 Baso # (Auto) 0.02 Absolute Neuts (auto) 7.11 H PT INR APTT Sodium 136 Potassium 3.5 L Chloride 99 Carbon Dioxide 24 Anion Gap 16 BUN 3 L Creatinine 0.4 L Est GFR ( Amer) > 60 Est GFR (Non-Af Amer) > 60 POC Glucose (mg/dL) Random Glucose 120 H Hemoglobin A1c Calcium 8.2 L Phosphorus 3.7 Magnesium 1.4 L Total Bilirubin 2.4 H Direct Bilirubin AST 165 H ALT 36 Alkaline Phosphatase 490 H Ammonia Lactate Dehydrogenase Total Protein 7.8 Albumin 4.0 Globulin 3.8 Albumin/Globulin Ratio 1.1 Triglycerides Cholesterol LDL Cholesterol Direct HDL Cholesterol Free T4 TSH 3rd Generation Urine Color Urine Appearance Urine pH Ur Specific Leroy Urine Protein Urine Glucose (UA) Urine Ketones Urine Blood Urine Nitrate Urine Bilirubin Urine Urobilinogen Ur Leukocyte Esterase Urine RBC Urine WBC Ur Epithelial Cells Urine Opiates Screen Negative Urine Methadone Screen Negative Ur Barbiturates Screen Negative Ur Phencyclidine Scrn Negative Ur Amphetamines Screen Negative U Benzodiazepines Scrn Negative U Oth Cocaine Metabols Negative U Cannabinoids Screen Negative Alcohol, Quantitative 12/01/18 12/01/18 07:42 11:10 WBC RBC Hgb Hct MCV MCH MCHC RDW Plt Count MPV Neut % (Auto) Lymph % (Auto) [place] % (Auto) Eos % (Auto) Baso % (Auto) Lymph # (Auto) [place] # (Auto) Eos # (Auto) Baso # (Auto) Absolute Neuts (auto) PT 14.3 H INR 1.27 APTT Sodium Potassium Chloride Carbon Dioxide Anion Gap BUN Creatinine Est GFR ( Amer) Est GFR (Non-Af Amer) POC Glucose (mg/dL) 123 H Random Glucose Hemoglobin A1c Calcium Phosphorus Magnesium Total Bilirubin Direct Bilirubin AST ALT Alkaline Phosphatase Ammonia Lactate Dehydrogenase Total Protein Albumin Globulin Albumin/Globulin Ratio Triglycerides Cholesterol LDL Cholesterol Direct HDL Cholesterol Free T4 TSH 3rd Generation Urine Color Urine Appearance Urine pH Ur Specific Leroy Urine Protein Urine Glucose (UA) Urine Ketones Urine Blood Urine Nitrate Urine Bilirubin Urine Urobilinogen Ur Leukocyte Esterase Urine RBC Urine WBC Ur Epithelial Cells Urine Opiates Screen Urine Methadone Screen Ur Barbiturates Screen Ur Phencyclidine Scrn Ur Amphetamines Screen U Benzodiazepines Scrn U Oth Cocaine Metabols U Cannabinoids Screen Alcohol, Quantitative Assessment & Plan - Assessment and Plan (Free Text) Assessment: 38 year old male with past medical history of alcohol abuse, hypertension, and diabetes mellitus presents with right head laceration after shaving his head yesterday morning. He was subsequently found to have significant abdominal ascites likely 2/[address] shows cirrhotic changes of liver, mild HSM, large amount of ascites. Prior abdominal ultrasound from 2017 showed fatty infiltration of liver. It seems likely this is a new diagnosis of hepatic cirrhosis. Patient likely has decompensated alcoholic cirrhosis with significant ascites. Plan: -For new diagnosis of cirrhosis, will evaluate for etiology by ordering hepatitis panel, AFP, ceruloplasmin. Will consider adding anti-smooth muscle Ab, anti-mitochondrial Ab, anti-microsomal Ab, [id number] -Unremarkable iron and TIBC. Awaiting ferritin level -Will plan for diagnostic and therapeutic paracentesis with Dr. Dong. Will obtain cell count, total protein, albumin, culture for evaluating for SBP -Will consider adding lasix after paracentesis. -Will plan for EGD in the future -Continue with [facility] protocol for potential alcohol withdrawal -MELD score is 13. Estimated 3 month mortality is 6% -Maddrey's Discriminant Score is 8.4 which indicated good prognosis for patient. Patient plan discussed with Dr. Gallagher - Date & Time Date: 12/01/18 Time: 12:25 <Clint Gallagher V - Last Filed: 12/01/18 23:29> Meds - Medications Medications: Current Medications Dextrose (Dextrose 50% Inj) 0 ml IV STAT PRN; Protocol PRN Reason: Hypoglycemia Protocol Folic Acid (Folic Acid) 1 mg PO DAILY [facility] Last Admin: 12/01/18 09:00 Dose: 1 mg Furosemide (Lasix) 20 mg PO DAILY [facility] Last Admin: 12/01/18 13:02 Dose: 20 mg Heparin Sodium (Porcine) (Heparin) 5,000 units SC Q8 [facility]; Protocol Last Admin: 12/01/18 21:04 Dose: Not Given Dextrose (Dextrose 5% In Water 1000 Ml) 1,000 mls @ 0 mls/hr IV .Q0M PRN; Protocol PRN Reason: Hypoglycemia Protocol Insulin Human Regular (Humulin R) 0 units SC ACHS [facility]; Protocol Last Admin: 12/01/18 21:22 Dose: Not Given Lactulose (Enulose) 20 gm PO HS [facility] Last Admin: 12/01/18 21:02 Dose: 20 gm Lorazepam (Ativan) 2 mg IVP Q6H [facility]; Protocol Last Admin: 12/01/18 21:01 Dose: 2 mg Lorazepam (Ativan) 1 mg IVP Q2H PRN; Protocol PRN Reason: Symptoms of alcohol withdrawl Multivitamins/Minerals (Therapeutic-M Tab) 1 tab PO 0800 [facility] Last Admin: 12/01/18 08:56 Dose: 1 tab Pantoprazole Sodium (Protonix Ec Tab) 40 mg PO ACB [facility] Spironolactone (Aldactone) 50 mg PO DAILY [facility] Last Admin: 12/01/18 13:02 Dose: 50 mg Thiamine HCl (Vitamin B1 Tab) 100 mg PO DAILY [facility] Last Admin: 12/01/18 09:00 Dose: 100 mg Results - Vital Signs Recent Vital Signs: Last Vital Signs Temp 98.4 F 12/01/18 12:00 Pulse 108 H 12/01/18 18:00 Resp 20 12/01/18 12:00 BP 132/86 12/01/18 13:02 Pulse Ox 99 12/01/18 06:00 - Labs Result Diagrams: 12/01/18 07:00 12/01/18 07:00 Labs: Laboratory Results - last 24 hr 11/30/18 11/30/18 12/01/18 17:55 17:55 07:00 WBC 8.5 RBC 4.08 Hgb 12.2 L Hct 38.4 L MCV 94.1 MCH 29.9 MCHC 31.8 RDW 14.4 Plt Count 79 L MPV 12.0 H Neut % (Auto) 83.2 H Lymph % (Auto) 7.4 L [place] % (Auto) 8.8 H Eos % (Auto) 0.4 L Baso % (Auto) 0.2 Lymph # (Auto) 0.6 L [place] # (Auto) 0.8 H Eos # (Auto) 0.0 Baso # (Auto) 0.02 Absolute Neuts (auto) 7.11 H PT INR Sodium Potassium Chloride Carbon Dioxide Anion Gap BUN Creatinine Est GFR ( Amer) Est GFR (Non-Af Amer) POC Glucose (mg/dL) Random Glucose Hemoglobin A1c 5.7 Calcium Phosphorus Magnesium Iron TIBC % Saturation Ferritin Total Bilirubin AST ALT Alkaline Phosphatase Total Protein Albumin Globulin Albumin/Globulin Ratio Alpha Fetoprotein Fluid Source Fluid Appearance Fluid WBC Fluid RBC Fluid Tot Cell Count Fluid Mononuclear Cell Fl Polymorphonucl Cell Fluid Comment Hepatitis A IgM Ab Negative Hep Bs Antigen Negative Hep Bs Antibody Hep B Core IgM Ab Negative Hepatitis C Antibody Negative 12/01/18 12/01/18 12/01/18 07:00 07:42 10:01 WBC RBC Hgb Hct MCV MCH MCHC RDW Plt Count MPV Neut % (Auto) Lymph % (Auto) [place] % (Auto) Eos % (Auto) Baso % (Auto) Lymph # (Auto) [place] # (Auto) Eos # (Auto) Baso # (Auto) Absolute Neuts (auto) PT INR Sodium 136 Potassium 3.5 L Chloride 99 Carbon Dioxide 24 Anion Gap 16 BUN 3 L Creatinine 0.4 L Est GFR ( Amer) > 60 Est GFR (Non-Af Amer) > 60 POC Glucose (mg/dL) 123 H Random Glucose 120 H Hemoglobin A1c Calcium 8.2 L Phosphorus 3.7 Magnesium 1.4 L Iron TIBC % Saturation Ferritin Total Bilirubin 2.4 H AST 165 H ALT 36 Alkaline Phosphatase 490 H Total Protein 7.8 Albumin 4.0 Globulin 3.8 Albumin/Globulin Ratio 1.1 Alpha Fetoprotein 2.9 Fluid Source Fluid Appearance Fluid WBC Fluid RBC Fluid Tot Cell Count Fluid Mononuclear Cell Fl Polymorphonucl Cell Fluid Comment Hepatitis A IgM Ab Hep Bs Antigen Hep Bs Antibody Hep B Core IgM Ab Hepatitis C Antibody 12/01/18 12/01/1819 10:01 11:10 12:30 WBC RBC Hgb Hct MCV MCH MCHC RDW Plt Count MPV Neut % (Auto) Lymph % (Auto) [place] % (Auto) Eos % (Auto) Baso % (Auto) Lymph # (Auto) [place] # (Auto) Eos # (Auto) Baso # (Auto) Absolute Neuts (auto) PT 14.3 H INR 1.27 Sodium Potassium Chloride Carbon Dioxide Anion Gap BUN Creatinine Est GFR ( Amer) Est GFR (Non-Af Amer) POC Glucose (mg/dL) Random Glucose Hemoglobin A1c Calcium Phosphorus Magnesium Iron TIBC % Saturation Ferritin Total Bilirubin AST ALT Alkaline Phosphatase Total Protein Albumin Globulin Albumin/Globulin Ratio Alpha Fetoprotein Fluid Source Peritoneal/ascites Fluid Appearance Sl cloudy Fluid WBC 299.0 Fluid RBC 1972.0 H Fluid Tot Cell Count 100 H Fluid Mononuclear Cell 90.6 H Fl Polymorphonucl Cell 9.4 H Fluid Comment Yellow Hepatitis A IgM Ab Hep Bs Antigen Hep Bs Antibody Negative Hep B Core IgM Ab Hepatitis C Antibody 12/01/18 12/01/18 12/01/18 14:00 14:00 16:39 WBC RBC Hgb Hct MCV MCH MCHC RDW Plt Count MPV Neut % (Auto) Lymph % (Auto) [place] % (Auto) Eos % (Auto) Baso % (Auto) Lymph # (Auto) [place] # (Auto) Eos # (Auto) Baso # (Auto) Absolute Neuts (auto) PT INR Sodium Potassium Chloride Carbon Dioxide Anion Gap BUN Creatinine Est GFR ( Amer) Est GFR (Non-Af Amer) POC Glucose (mg/dL) 120 H Random Glucose Hemoglobin A1c Calcium Phosphorus Magnesium Iron 142 TIBC 333 % Saturation 43 Ferritin 53.3 Total Bilirubin AST ALT Alkaline Phosphatase Total Protein Albumin Globulin Albumin/Globulin Ratio Alpha Fetoprotein Fluid Source Fluid Appearance Fluid WBC Fluid RBC Fluid Tot Cell Count Fluid Mononuclear Cell Fl Polymorphonucl Cell Fluid Comment Hepatitis A IgM Ab Hep Bs Antigen Hep Bs Antibody Hep B Core IgM Ab Hepatitis C Antibody 12/01/18 21:21 WBC RBC Hgb Hct MCV MCH MCHC RDW Plt Count MPV Neut % (Auto) Lymph % (Auto) [place] % (Auto) Eos % (Auto) Baso % (Auto) Lymph # (Auto) [place] # (Auto) Eos # (Auto) Baso # (Auto) Absolute Neuts (auto) PT INR Sodium Potassium Chloride Carbon Dioxide Anion Gap BUN Creatinine Est GFR ( Amer) Est GFR (Non-Af Amer) POC Glucose (mg/dL) 115 H Random Glucose Hemoglobin A1c Calcium Phosphorus Magnesium Iron TIBC % Saturation Ferritin Total Bilirubin AST ALT Alkaline Phosphatase Total Protein Albumin Globulin Albumin/Globulin Ratio Alpha Fetoprotein Fluid Source Fluid Appearance Fluid WBC Fluid RBC Fluid Tot Cell Count Fluid Mononuclear Cell Fl Polymorphonucl Cell Fluid Comment Hepatitis A IgM Ab Hep Bs Antigen Hep Bs Antibody Hep B Core IgM Ab Hepatitis C Antibody Attending/Attestation - Attestation I have personally seen and examined this patient.: Yes I have fully participated in the care of the patient.: Yes I have reviewed all pertinent clinical information: Yes Notes (Text): p 12/01/18 23:29
[2018-12-01 12:26] LABS: HEPATITIS A IGM NEGATIVE (NEGATIVE)
[2018-12-01 12:38] LABS: HEPATITIS C ANTIBODY NEGATIVE (NEGATIVE)
[2018-12-01 12:44] LABS: BODY FLUID TYPE PERITONEAL/ASCITES
[2018-12-01 13:15] LABS: HEPATITIS B CORE AB NEGATIVE (NEGATIVE)
[2018-12-01 13:25] LABS: BF GROSS APPEARANCE SL CLOUDY (CLEAR)
[2018-12-01 13:26] LABS: BODY FLUID TOTAL COUNT 100 (0-0)
--- NOTE | 2018-12-01 13:35 | CP.PCM.PN ---
<Nash Griffith - Last Filed: 12/01/18 13:57> Subjective - Date & Time of Evaluation Date of Evaluation: 12/01/18 Time of Evaluation: 11:00 - Subjective Subjective: INTERNAL MEDICINE PROGRESS NOTE FOR DR. BERNABE Griffith PGY1 Pt seen and examined at bedside this am. Pt is calm, not showing signs of withdrawal currently. He reports he noticed abdominal distention for the past month, and also noticed hernia repair as distention got worse. He is currently denying complaints Objective - Vital Signs/Intake and Output Vital Signs (last 24 hours): Temp Pulse Resp BP Pulse Ox 97.8 F 115 H 20 132/86 99 12/01/18 06:00 12/01/18 10:00 12/01/18 06:00 12/01/18 13:02 12/01/18 06:00 Intake and Output: 12/01/18 12/01/18 06:59 18:59 Intake Total 1180 Balance 1180 - Medications Medications: Current Medications Dextrose (Dextrose 50% Inj) 0 ml IV STAT PRN; Protocol PRN Reason: Hypoglycemia Protocol Folic Acid (Folic Acid) 1 mg PO DAILY [facility] Last Admin: 12/01/18 09:00 Dose: 1 mg Furosemide (Lasix) 20 mg PO DAILY [facility] Last Admin: 12/01/18 13:02 Dose: 20 mg Heparin Sodium (Porcine) (Heparin) 5,000 units SC Q8 [facility]; Protocol Last Admin: 12/01/18 13:01 Dose: Not Given Dextrose (Dextrose 5% In Water 1000 Ml) 1,000 mls @ 0 mls/hr IV .Q0M PRN; Protocol PRN Reason: Hypoglycemia Protocol Insulin Human Regular (Humulin R) 0 units SC ACHS [facility]; Protocol Last Admin: 12/01/18 13:05 Dose: Not Given Lactulose (Enulose) 20 gm PO HS [facility] Lorazepam (Ativan) 2 mg IVP Q6H [facility]; Protocol Last Admin: 12/01/18 09:46 Dose: Not Given Lorazepam (Ativan) 1 mg IVP Q2H PRN; Protocol PRN Reason: Symptoms of alcohol withdrawl Multivitamins/Minerals (Therapeutic-M Tab) 1 tab PO 0800 [facility] Last Admin: 12/01/18 08:56 Dose: 1 tab Pantoprazole Sodium (Protonix Ec Tab) 40 mg PO ACB [facility] Spironolactone (Aldactone) 50 mg PO DAILY [facility] Last Admin: 12/01/18 13:02 Dose: 50 mg Thiamine HCl (Vitamin B1 Tab) 100 mg PO DAILY [facility] Last Admin: 12/01/18 09:00 Dose: 100 mg - Labs Labs: 12/01/18 07:00 12/01/18 07:00 PT 14.3 SECONDS (9.4-12.5) H 12/01/18 11:10 INR 1.27 12/01/18 11:10 APTT 37.8 Seconds (26.9-38.3) 11/30/18 17:55 - Constitutional Appears: No Acute Distress - Head Exam Additional comments: JUANCHO bandage noted over R head laceration. No soaked bandage noted. - Eye Exam Eye Exam: EOMI, Normal appearance, PERRL, Scleral icterus Pupil Exam: NORMAL ACCOMODATION - ENT Exam ENT Exam: Mucous Membranes Dry, Normal Exam - Neck Exam Neck exam: Positive for: Full Rom, Normal Inspection - Respiratory Exam Respiratory Exam: Decreased Breath Sounds, Clear to Auscultation Bilateral. absent: Accessory Muscle Use, Rales, Rhonchi, Wheezes, Respiratory Distress, Stridor - Cardiovascular Exam Cardiovascular Exam: REGULAR RHYTHM, +S1, +S2 - GI/Abdominal Exam GI & Abdominal Exam: Distended, Firm (umbilical hernia with overlying skin discoloration noted), Hernia, Normal Bowel Sounds. absent: Guarding, Rebound Additional comments: prominent abdominal ascites noted, positive fluid wave - Extremities Exam Extremities exam: Positive for: normal capillary refill, pedal edema, pedal pu lses present. Negative for: calf tenderness - Back Exam Back exam: NORMAL INSPECTION - Neurological Exam Neurological exam: Alert, Oriented x3 - Skin Skin Exam: Dry, Intact, Normal Color, Warm Assessment and Plan - Assessment and Plan (Free Text) Assessment: 38 year old male with pmhx of alcohol abuse, untreated HTN and DM, presenting to ED with R head laceration. Found to have significant abdominal di stention, umbilical hernia, ascites on CT abdomen. Plan: Abdominal Ascites -likely 2/2 longstanding alcohol abuse -positive fluid wave test. CT abdomen/pelvis: large amount of ascites within the abdomen and pelvis. Mild hepatosplenomegaly. Cirrhotic changes within the liver. Abdomen U/S: "Echogenic liver may be seen in setting of hepatic parenchymal disease or fatty infiltration. Borderline hepatomegaly. Nodular hepatic contour. Splenomegaly. Small abdominal ascites." -Start spironoloctone:furosemide po at 100:40 (50mmg) to maintain nor mokalemia. Replete K as necessary -IR is consulted in the AM for paracentesis. Plan to administer albumin depending on amount of fluid removed from paracentesis -will follow up ascites protein levels/cytology/after paracentesis Liver cirrhosis -Elevated LFTs. Elevated ammonia. AST/ALT indicative of alcohol hepatitis -start lactulose HS as pt mildly confused. -Hepatobiliary surgery (Dr. Tovar) and GI, recs appreciated -awaiting results for hepatitis, hemochromocytosis, wilsons dz, hepatic adenoma Umbilical hernia -r/o incarceration -protruding, nontender umbilical hernia noted on PE with overlying erythematous skin changes -General Surgery (Dr. Hidalgo) consulted Alcohol Abuse -pt states he drinks 3-4 drinks daily -continue CIWA protocol, aspiration, fall precautions -stpo banana bag as pt already fluid overload -continue oralthiamine/folate/MV -ativan 2 mg IVP q6 prn -alcohol cessation counseling DM2 -A1C 5.7 -continue ISS medium dose -accuchecks ACHS -hypoglycemic protocol Hx of HTN -currently normotensive, continue to monitor -not on any home meds DVT/GI: Hep/protonix Case reviewed with attending physician, Dr. Chacon. Further recs per attending Nash Griffith PGY1 <Courtney Chacon - Last Filed: 12/01/18 16:56> Objective - Vital Signs/Intake and Output Vital Signs (last 24 hours): Temp Pulse Resp BP Pulse Ox 98.4 F 108 H 20 132/86 99 12/01/18 12:00 12/01/18 14:00 12/01/18 12:00 12/01/18 13:02 12/01/18 06:00 Intake and Output: 12/01/18 12/01/18 06:59 18:59 Intake Total 1180 Balance 1180 - Medications Medications: Current Medications Dextrose (Dextrose 50% Inj) 0 ml IV STAT PRN; Protocol PRN Reason: Hypoglycemia Protocol Folic Acid (Folic Acid) 1 mg PO DAILY [facility] Last Admin: 12/01/18 09:00 Dose: 1 mg Furosemide (Lasix) 20 mg PO DAILY [facility] Last Admin: 12/01/18 13:02 Dose: 20 mg Heparin Sodium (Porcine) (Heparin) 5,000 units SC Q8 [facility]; Protocol Last Admin: 12/01/18 13:01 Dose: Not Given Dextrose (Dextrose 5% In Water 1000 Ml) 1,000 mls @ 0 mls/hr IV .Q0M PRN; Protocol PRN Reason: Hypoglycemia Protocol Insulin Human Regular (Humulin R) 0 units SC ACHS [facility]; Protocol Last Admin: 12/01/18 13:05 Dose: Not Given Lactulose (Enulose) 20 gm PO HS [facility] Lorazepam (Ativan) 2 mg IVP Q6H [facility]; Protocol Last Admin: 12/01/18 15:26 Dose: 2 mg Lorazepam (Ativan) 1 mg IVP Q2H PRN; Protocol PRN Reason: Symptoms of alcohol withdrawl Multivitamins/Minerals (Therapeutic-M Tab) 1 tab PO 0800 [facility] Last Admin: 12/01/18 08:56 Dose: 1 tab Pantoprazole Sodium (Protonix Ec Tab) 40 mg PO ACB [facility] Spironolactone (Aldactone) 50 mg PO DAILY [facility] Last Admin: 12/01/18 13:02 Dose: 50 mg Thiamine HCl (Vitamin B1 Tab) 100 mg PO DAILY [facility] Last Admin: 12/01/18 09:00 Dose: 100 mg - Labs Labs: 12/01/18 07:00 12/01/18 07:00 PT 14.3 SECONDS (9.4-12.5) H 12/01/18 11:10 INR 1.27 12/01/18 11:10 APTT 37.8 Seconds (26.9-38.3) 11/30/18 17:55 Attending/Attestation - Attestation I have personally seen and examined this patient.: Yes I have fully participated in the care of the patient.: Yes I have reviewed all pertinent clinical information, including history, physical exam and plan: Yes Notes (Text): 12/01/18 16:54 Patient was seen and examined with director medical science. 38 year old male with past medical history of alcohol abuse, hypertension, and diabetes mellitus presents with right head laceration after shaving his head yesterday morning.He was found to intoxicated with alcohol, and also has Ascites, now in alcohol withdrawal on CIWA Protocol. Abdominal USG showed hepatomegaly . IR is consulted for Paracentesis.We will start patient on lasix and aldactone. Management plan was discussed in detail.Issue of ongoing alcohol abuse was discussed. Education was provided.Patient need reinforcement.
[2018-12-01 14:25] LABS: IRON 142 ug/dL (45-180)
[2018-12-01 14:34] LABS: % IRON SATURATION 43 % (20-55); TOTAL IRON BINDING CAPACITY 333 ug/dL (261-462)
--- NOTE | 2018-12-01 15:14 | US ---
PROCEDURE: Ultrasound guided paracentesis. HISTORY: Alcoholic cirrhosis. New onset ascites. Needs diagnostic and therapeutic paracentesis PHYSICIAN(S): Bernardo Dong MD. TECHNIQUE: The relative risks and indications for the procedure were explained to the patient and informed written consent obtained. Sonography of the abdomen was performed in a supine position. This revealed a moderate to large amount of non-loculated ascites, greatest in the right lower quadrant. A puncture site was selected and the area was prepped and draped in the usual sterile fashion. 1% Xylocaine was used to anesthetize the skin and soft tissues. A 7 Romansh paracentesis catheter was trocared into the right lower quadrantand 5500 cc of clear straw-colored fluid aspirated. The appropriate labs were sent. IMPRESSION: Ultrasound-guided paracentesis in the right lower quadrant. 5500 cc of clear straw-colored fluid aspirated. The appropriate labs were sent.
--- NOTE | 2018-12-01 15:18 | US ---
PROCEDURE: Portal vein duplex ultrasound. CLINICAL HISTORY: Cirrhosis. Deteriorating liver function. Evaluate for portal vein thrombosis. PHYSICIAN(S): Bernardo Dong M.D. FINDINGS: The exam is performed post paracentesis. No significant fluid is appreciated. The hepatic parenchyma is somewhat heterogeneous. No obvious mass is appreciated on this limited imaging. The extrahepatic portal vein is patent with hepatopetal flow. The hepatic artery is prominent and patent. Limited imaging of the central hepatic veins is unremarkable. The spleen is borderline enlarged. IMPRESSION: 1. Patent portal vein with hepatopetal flow.
[2018-12-01] MEDS ORDERED: Albumin Human 25% (12.5 gm/50 ml) IV ONE (19:11)
[2018-12-02 07:30] LABS: BASO # 0.02 K/mm3 (0.0-2.0); BASO % 0.3 % (0.0-3.0); EOS # 0.1 (0.0-0.7); HEMOGLOBIN 12.8 g/dL (14.0-18.0); LYMPH # 0.8 (1.2-3.4); LYMPH % 10.5 % (22.0-35.0); MEAN CELL VOLUME 92.9 fl (80.0-105.0); MEAN CORPUSCULAR HEMOGLOBIN 30.1 pg (25.0-35.0); MEAN CORPUSCULAR HGB CONC 32.4 g/dl (31.0-37.0); MEAN PLATELET VOLUME 12.6 fl (7.0-11.0); MONO # 0.7 (0.1-0.6); MONO % 8.5 % (1.0-6.0); RBC 4.25 10^6/uL (3.5-6.1); RED CELL DISTRIBUTION WIDTH 14.2 % (11.5-14.5)
[2018-12-02 08:53] LABS: ALBUMIN 3.7 g/dL (3.0-4.8); ALT/SGPT 22 U/L (7-56); AST/SGOT 134 U/L (17-59); BILIRUBIN,DIRECT 1.9 mg/dL (0.0-0.4); BLOOD UREA NITROGEN 4 mg/dL (7-21); CALCIUM 8.6 mg/dL (8.4-10.5); GFR NON-AFRICAN AMERICAN > 60
[2018-12-02] MEDS ORDERED: DiphenhydrAMINE 50 mg/ml Inj IVP ONE (09:13)
[2018-12-02] MEDS ORDERED: Midazolam 2 MG/2 ML VIAL ONE (09:17)
[2018-12-02] MEDS ORDERED: Dexmedetomidine 400mcg/100mL 400 MCG/100 ML BOTTLE IV PRN (09:20)
--- NOTE | 2018-12-02 10:24 | CP.PCM.CON ---
History of Present Illness - History of Present Illness History of Present Illness: MICU CONSULT NOTE HPI Patient is 38yo male with PMHx of EtOH abuse, HTN, DM, presented initially to the ER with R head laceration 2/2 shaving. Pt found to be intoxicated, and admitted for EtOH withdrawal. While on the floor, despite Ativan, and CIWA protocol, patient likely went in to Delirium tremens. Pt is currently agitated, aggrssive with staff. Pt given Ativan 8mg IV, Benadryl 50mg IV. History gathered from chart, and primary team. Cannot obtain ROS. PMHx: alcohol abuse, HTN, DM PSHx: denies Allergies: NKDA Home Meds: denies Family Hx: noncontributory Social Hx: 3-4 drinks daily (beer, whiskey shots, vodka shots), denies tobacco or illicit drug use. 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 Review of Systems - Review of Systems Review of Systems: cannot obtain Past Patient History - Infectious Disease Hx of Infectious Diseases: None - Past Social History Smoking Status: Never Smoked - CARDIAC Hx Cardiac Disorders: Yes Hx Hypertension: Yes - PULMONARY Hx Respiratory Disorders: No - NEUROLOGICAL Hx Neurological Disorder: No - HEENT Hx HEENT Problems: No - RENAL Hx Chronic Kidney Disease: No - ENDOCRINE/METABOLIC Hx Endocrine Disorders: Yes Hx Diabetes Mellitus Type 2: Yes - HEMATOLOGICAL/ONCOLOGICAL Hx Blood Disorders: No - INTEGUMENTARY Hx Dermatological Problems: No - MUSCULOSKELETAL/RHEUMATOLOGICAL Hx Falls: No - GASTROINTESTINAL Hx Gastrointestinal Disorders: No - GENITOURINARY/GYNECOLOGICAL Hx Genitourinary Disorders: No - PSYCHIATRIC Hx Psychophysiologic Disorder: No Hx Substance Use: No - SURGICAL HISTORY Hx Surgeries: No - ANESTHESIA Hx Anesthesia: Yes Hx Anesthesia Reactions: No Hx Malignant Hyperthermia: No Meds Allergies/Adverse Reactions: Allergies Allergy/AdvReac Type Severity Reaction Status Date / Time No Known Allergies Allergy Verified 10/13/17 13:43 - Medications Medications: Current Medications Dextrose (Dextrose 50% Inj) 0 ml IV STAT PRN; Protocol PRN Reason: Hypoglycemia Protocol Folic Acid (Folic Acid) 1 mg PO DAILY [facility] Last Admin: 12/01/18 09:00 Dose: 1 mg Furosemide (Lasix) 20 mg PO DAILY [facility] Last Admin: 12/01/18 13:02 Dose: 20 mg Heparin Sodium (Porcine) (Heparin) 5,000 units SC Q8 [facility]; Protocol Last Admin: 12/02/18 06:49 Dose: Not Given Dextrose (Dextrose 5% In Water 1000 Ml) 1,000 mls @ 0 mls/hr IV .Q0M PRN; Protocol PRN Reason: Hypoglycemia Protocol Dexmedetomidine HCl (Precedex 400mcg/100ml) 400 mcg in 100 mls @ 4.15 mls/hr IV .Q24H PRN; Protocol PRN Reason: Agitation Insulin Human Regular (Humulin R) 0 units SC ACHS [facility]; Protocol Last Admin: 12/01/18 21:22 Dose: Not Given Lactulose (Enulose) 20 gm PO HS [facility] Last Admin: 12/01/18 21:02 Dose: 20 gm Lorazepam (Ativan) 2 mg IVP Q6H [facility]; Protocol Last Admin: 12/02/18 09:08 Dose: 2 mg Lorazepam (Ativan) 1 mg IVP Q2H PRN; Protocol PRN Reason: Symptoms of alcohol withdrawl Last Admin: 12/02/18 07:35 Dose: 1 mg Multivitamins/Minerals (Therapeutic-M Tab) 1 tab PO 0800 [facility] Last Admin: 12/01/18 08:56 Dose: 1 tab Pantoprazole Sodium (Protonix Ec Tab) 40 mg PO ACB [facility] Spironolactone (Aldactone) 50 mg PO DAILY [facility] Last Admin: 12/01/18 13:02 Dose: 50 mg Thiamine HCl (Vitamin B1 Tab) 100 mg PO DAILY [facility] Last Admin: 12/01/18 09:00 Dose: 100 mg Physical Exam - Constitutional Appears: Non-toxic, In Acute Distress, Older Than Stated Age, Confused - Head Exam Additional comments: R head laceration with bandage - ENT Exam ENT Exam: Mucous Membranes Dry - Neck Exam Neck exam: Positive for: Full Rom - Respiratory Exam Respiratory Exam: Clear to Auscultation Bilateral, NORMAL BREATHING PATTERN - Cardiovascular Exam Cardiovascular Exam: REGULAR RHYTHM, +S1, +S2 - GI/Abdominal Exam GI & Abdominal Exam: Normal Bowel Sounds, Soft Additional comments: + ascites - Extremities Exam Extremities exam: Positive for: normal inspection - Neurological Exam Neurological exam: Altered - Skin Skin Exam: Normal Color, Warm Results - Vital Signs Recent Vital Signs: Last Vital Signs Temp 98.5 F 12/02/18 06:00 Pulse 104 H 12/02/18 06:00 Resp 16 12/02/18 06:00 BP 148/84 12/02/18 06:00 Pulse Ox 99 12/01/18 06:00 - Labs Result Diagrams: 12/02/18 07:00 12/02/18 07:00 Labs: Laboratory Results - last 24 hr 11/30/18 11/30/18 12/01/18 17:55 17:55 10:01 WBC RBC Hgb Hct MCV MCH MCHC RDW Plt Count MPV Neut % (Auto) Lymph % (Auto) [place] % (Auto) Eos % (Auto) Baso % (Auto) Lymph # (Auto) [place] # (Auto) Eos # (Auto) Baso # (Auto) Absolute Neuts (auto) PT INR Sodium Potassium Chloride Carbon Dioxide Anion Gap BUN Creatinine Est GFR ( Amer) Est GFR (Non-Af Amer) POC Glucose (mg/dL) Random Glucose Hemoglobin A1c 5.7 Calcium Phosphorus Magnesium Iron TIBC % Saturation Ferritin Total Bilirubin Direct Bilirubin AST ALT Alkaline Phosphatase Total Protein Albumin Globulin Albumin/Globulin Ratio Alpha Fetoprotein 2.9 Fluid Source Fluid Appearance Fluid WBC Fluid RBC Fluid Tot Cell Count Fluid Mononuclear Cell Fl Polymorphonucl Cell Fluid Comment Hepatitis A IgM Ab Negative Hepatitis A Ab Total Hep Bs Antigen Negative Hep Bs Antibody Hep B Core IgM Ab Negative Hepatitis C Antibody Negative 12/01/18 12/01/18 12/01/18 10:01 11:10 11:10 WBC RBC Hgb Hct MCV MCH MCHC RDW Plt Count MPV Neut % (Auto) Lymph % (Auto) [place] % (Auto) Eos % (Auto) Baso % (Auto) Lymph # (Auto) [place] # (Auto) Eos # (Auto) Baso # (Auto) Absolute Neuts (auto) PT 14.3 H INR 1.27 Sodium Potassium Chloride Carbon Dioxide Anion Gap BUN Creatinine Est GFR ( Amer) Est GFR (Non-Af Amer) POC Glucose (mg/dL) Random Glucose Hemoglobin A1c Calcium Phosphorus Magnesium Iron TIBC % Saturation Ferritin Total Bilirubin Direct Bilirubin AST ALT Alkaline Phosphatase Total Protein Albumin Globulin Albumin/Globulin Ratio Alpha Fetoprotein Fluid Source Fluid Appearance Fluid WBC Fluid RBC Fluid Tot Cell Count Fluid Mononuclear Cell Fl Polymorphonucl Cell Fluid Comment Hepatitis A IgM Ab Hepatitis A Ab Total Reactive H Hep Bs Antigen Hep Bs Antibody Negative Hep B Core IgM Ab Hepatitis C Antibody 12/01/18 12/01/18 12/01/18 12:30 14:00 14:00 WBC RBC Hgb Hct MCV MCH MCHC RDW Plt Count MPV Neut % (Auto) Lymph % (Auto) [place] % (Auto) Eos % (Auto) Baso % (Auto) Lymph # (Auto) [place] # (Auto) Eos # (Auto) Baso # (Auto) Absolute Neuts (auto) PT INR Sodium Potassium Chloride Carbon Dioxide Anion Gap BUN Creatinine Est GFR ( Amer) Est GFR (Non-Af Amer) POC Glucose (mg/dL) Random Glucose Hemoglobin A1c Calcium Phosphorus Magnesium Iron 142 TIBC 333 % Saturation 43 Ferritin 53.3 Total Bilirubin Direct Bilirubin AST ALT Alkaline Phosphatase Total Protein Albumin Globulin Albumin/Globulin Ratio Alpha Fetoprotein Fluid Source Peritoneal/ascites Fluid Appearance Sl cloudy Fluid WBC 299.0 Fluid RBC 1972.0 H Fluid Tot Cell Count 100 H Fluid Mononuclear Cell 90.6 H Fl Polymorphonucl Cell 9.4 H Fluid Comment Yellow Hepatitis A IgM Ab Hepatitis A Ab Total Hep Bs Antigen Hep Bs Antibody Hep B Core IgM Ab Hepatitis C Antibody 12/01/18 12/01/18 12/02/18 16:39 21:21 07:00 WBC 8.0 RBC 4.25 Hgb 12.8 L Hct 39.5 L MCV 92.9 MCH 30.1 MCHC 32.4 RDW 14.2 Plt Count 81 L MPV 12.6 H Neut % (Auto) 79.7 H Lymph % (Auto) 10.5 L [place] % (Auto) 8.5 H Eos % (Auto) 1.0 L Baso % (Auto) 0.3 Lymph # (Auto) 0.8 L [place] # (Auto) 0.7 H Eos # (Auto) 0.1 Baso # (Auto) 0.02 Absolute Neuts (auto) 6.37 PT INR Sodium Potassium Chloride Carbon Dioxide Anion Gap BUN Creatinine Est GFR ( Amer) Est GFR (Non-Af Amer) POC Glucose (mg/dL) 120 H 115 H Random Glucose Hemoglobin A1c Calcium Phosphorus Magnesium Iron TIBC % Saturation Ferritin Total Bilirubin Direct Bilirubin AST ALT Alkaline Phosphatase Total Protein Albumin Globulin Albumin/Globulin Ratio Alpha Fetoprotein Fluid Source Fluid Appearance Fluid WBC Fluid RBC Fluid Tot Cell Count Fluid Mononuclear Cell Fl Polymorphonucl Cell Fluid Comment Hepatitis A IgM Ab Hepatitis A Ab Total Hep Bs Antigen Hep Bs Antibody Hep B Core IgM Ab Hepatitis C Antibody 04/13/19 04/13/19 07:00 07:16 WBC RBC Hgb Hct MCV MCH MCHC RDW Plt Count MPV Neut % (Auto) Lymph % (Auto) [place] % (Auto) Eos % (Auto) Baso % (Auto) Lymph # (Auto) [place] # (Auto) Eos # (Auto) Baso # (Auto) Absolute Neuts (auto) PT INR Sodium 134 Potassium 3.6 Chloride 97 L Carbon Dioxide 24 Anion Gap 16 BUN 4 L Creatinine 0.4 L Est GFR ( Amer) > 60 Est GFR (Non-Af Amer) > 60 POC Glucose (mg/dL) 93 Random Glucose 90 Hemoglobin A1c Calcium 8.6 Phosphorus 3.1 Magnesium 1.7 Iron TIBC % Saturation Ferritin Total Bilirubin 3.2 H Direct Bilirubin 1.9 H AST 134 H ALT 22 Alkaline Phosphatase 439 H Total Protein 7.5 Albumin 3.7 Globulin 3.8 Albumin/Globulin Ratio 1.0 L Alpha Fetoprotein Fluid Source Fluid Appearance Fluid WBC Fluid RBC Fluid Tot Cell Count Fluid Mononuclear Cell Fl Polymorphonucl Cell Fluid Comment Hepatitis A IgM Ab Hepatitis A Ab Total Hep Bs Antigen Hep Bs Antibody Hep B Core IgM Ab Hepatitis C Antibody Assessment & Plan - Assessment and Plan (Free Text) Assessment: 38yo male with DTs, dehydration, confusion Delirium tremens Dehydration Confusion HTN EtOH abuse R head laceration - currently more calm, s/p Ativan, and Benadryl, somnolent, but responds to painful stimuli - labs, imaging, chart reviewed - Paracentesis without evidence of SBP, cultures pending Recommend: - supp o2 as needed, duonebs PRN, IS, monitor resp status closely - Monitor off abx - BP control - Precedex drip - Thiamine, Folic Acid, MVT - IVF - NPO - DC Lasix - replete K, Mg - Ativan PRN - 1:1 obs - DVT ppx, HSQ - GI ppx, PPI - Monitor in MICU Critical care time 35 minutes
[2018-12-02] MEDS: Sodium Chloride 0.9% 1,000 ML IV SCH ×2 (10:43→21:01)
[2018-12-02] MEDS: Pantoprazole 40 mg EC Tab PO SCH (11:11)
[2018-12-02] MEDS: Insulin Regular 1 UNITS/0.01 ML ML SC SCH ×4 (11:12→21:47)
[2018-12-02] MEDS: Multivitamin With Minerals Tab PO SCH (11:13)
[2018-12-02] MEDS: Dexmedetomidine 400mcg/100mL 400 MCG/100 ML BOTTLE IV PRN ×2 (12:05→17:29)
--- NOTE | 2018-12-02 13:24 | CP.PCM.PN ---
<Kay Mccarthy - Last Filed: 12/02/18 13:25> Subjective - Date & Time of Evaluation Date of Evaluation: 12/02/18 Time of Evaluation: 07:10 - Subjective Subjective: PGY5 GI Follow-up Pt seen and examined bedside anxious tremor and anxiety ROS: 12 point ROS conducted, neg other than above Objective - Vital Signs/Intake and Output Vital Signs (last 24 hours): Temp Pulse Resp BP Pulse Ox 98.8 F 88 23 105/64 97 12/02/18 12:00 12/02/18 13:16 12/02/18 13:16 12/02/18 13:00 12/02/18 10:52 Intake and Output: 12/02/18 12/02/18 06:59 18:59 Intake Total 780 25 Balance 780 25 - Medications Medications: Current Medications Dextrose (Dextrose 50% Inj) 0 ml IV STAT PRN; Protocol PRN Reason: Hypoglycemia Protocol Folic Acid (Folic Acid) 1 mg PO DAILY [facility] Last Admin: 12/02/18 10:39 Dose: Not Given Heparin Sodium (Porcine) (Heparin) 5,000 units SC Q8 [facility]; Protocol Last Admin: 12/02/18 06:49 Dose: Not Given Dextrose (Dextrose 5% In Water 1000 Ml) 1,000 mls @ 0 mls/hr IV .Q0M PRN; Protocol PRN Reason: Hypoglycemia Protocol Sodium Chloride (Sodium Chloride 0.9%) 1,000 mls @ 100 mls/hr IV .Q10H [facility] Last Admin: 12/02/18 10:43 Dose: 100 mls/hr Dexmedetomidine HCl (Precedex 400mcg/100ml) 400 mcg in 100 mls @ 8.301 mls/hr IV .Q12H3M PRN; Protocol PRN Reason: Agitation Last Titration: 12/02/18 12:36 Dose: 0.6 mcg/kg/hr, 12.451 mls/hr Insulin Human Regular (Humulin R) 0 units SC ACHS [facility]; Protocol Last Admin: 12/02/18 12:02 Dose: Not Given Lactulose (Enulose) 20 gm PO HS [facility] Last Admin: 12/01/18 21:02 Dose: 20 gm Lorazepam (Ativan) 2 mg IVP Q6H [facility]; Protocol Last Admin: 12/02/18 09:08 Dose: 2 mg Lorazepam (Ativan) 1 mg IVP Q2H PRN; Protocol PRN Reason: Symptoms of alcohol withdrawl Last Admin: 12/02/18 12:30 Dose: 1 mg Multivitamins/Minerals (Therapeutic-M Tab) 1 tab PO 0800 [facility] Last Admin: 12/02/18 11:13 Dose: Not Given Pantoprazole Sodium (Protonix Ec Tab) 40 mg PO ACB [facility] Last Admin: 12/02/18 11:11 Dose: Not Given Spironolactone (Aldactone) 50 mg PO DAILY [facility] Last Admin: 12/02/18 10:39 Dose: Not Given Thiamine HCl (Vitamin B1 Tab) 100 mg PO DAILY [facility] Last Admin: 12/02/18 10:40 Dose: Not Given - Labs Labs: 12/02/18 07:00 12/02/18 07:00 PT 14.3 SECONDS (9.4-12.5) H 12/01/18 11:10 INR 1.27 12/01/18 11:10 APTT 37.8 Seconds (26.9-38.3) 11/30/18 17:55 - Constitutional Appears: No Acute Distress - Head Exam Head Exam: ATRAUMATIC, NORMOCEPHALIC - Eye Exam Eye Exam: Normal appearance - ENT Exam ENT Exam: Mucous Membranes Moist - Respiratory Exam Respiratory Exam: Clear to Ausculation Bilateral, NORMAL BREATHING PATTERN. absent: Rales, Rhonchi, Wheezes - Cardiovascular Exam Cardiovascular Exam: REGULAR RHYTHM, +S1, +S2 - GI/Abdominal Exam GI & Abdominal Exam: Distended, Soft, Normal Bowel Sounds. absent: Firm, Guarding, Rigid, Tenderness, Mass - Extremities Exam Extremities Exam: absent: Joint Swelling, Pedal Edema - Neurological Exam Neurological Exam: Alert, Altered, Awake - Psychiatric Exam Additional comments: anxious - Skin Skin Exam: Dry, Intact, Normal Color, Warm Assessment and Plan - Assessment and Plan (Free Text) Assessment: 38 year old male with past medical history of alcohol abuse, hypertension, and diabetes mellitus presents with right head laceration after shaving his head yesterday morning. He was subsequently found to have significant abdominal ascites likely 2/[address] shows cirrhotic changes of liver, mild HSM, large amount of ascites. Prior abdominal ultrasound from 2017 showed fatty infiltration of liver. It seems likely this is a new diagnosis of hepatic cirrhosis. Patient likely has decompensated alcoholic cirrhosis with significant ascites. Now with DTs Plan: -hepatitis panel, AFP, ceruloplasmin, Neg. anti-smooth muscle Ab, anti- mitochondrial Ab, anti-microsomal Ab, [id number]: pending -Unremarkable iron and TIBC. -s/p paracentesis; 5.5L; labs for SAAG -Will plan for EGD in the future -Continue with [facility] protocol for potential alcohol withdrawal -MELD score is 13. Estimated 3 month mortality is 6% -Maddrey's Discriminant Score is 8.4 which indicated good prognosis for patient. continue ICU care for for DTs Patient plan discussed with Dr. Gallagher <Clint Gallagher V - Last Filed: 12/02/18 23:55> Objective - Vital Signs/Intake and Output Vital Signs (last 24 hours): Temp Pulse Resp BP Pulse Ox 98.1 F 70 20 117/50 L 99 12/02/18 16:00 12/02/18 23:10 12/02/18 23:10 12/02/18 23:00 12/02/18 23:10 Intake and Output: 12/02/18 12/03/18 18:59 06:59 Intake Total 1028 Output Total 700 Balance 328 - Medications Medications: Current Medications Dextrose (Dextrose 50% Inj) 0 ml IV STAT PRN; Protocol PRN Reason: Hypoglycemia Protocol Folic Acid (Folic Acid) 1 mg PO DAILY [facility] Last Admin: 12/02/18 10:39 Dose: Not Given Dextrose (Dextrose 5% In Water 1000 Ml) 1,000 mls @ 0 mls/hr IV .Q0M PRN; Protocol PRN Reason: Hypoglycemia Protocol Sodium Chloride (Sodium Chloride 0.9%) 1,000 mls @ 100 mls/hr IV .Q10H [facility] Last Admin: 12/02/18 21:01 Dose: 100 mls/hr Dexmedetomidine HCl (Precedex 400mcg/100ml) 400 mcg in 100 mls @ 8.301 mls/hr IV .Q12H3M PRN; Protocol PRN Reason: Agitation Last Titration: 12/02/18 18:00 Dose: 0.5 mcg/kg/hr, 10.376 mls/hr Insulin Human Regular (Humulin R) 0 units SC ACHS [facility]; Protocol Last Admin: 12/02/18 21:47 Dose: Not Given Lactulose (Enulose) 20 gm PO HS [facility] Last Admin: 12/01/18 21:02 Dose: 20 gm Lorazepam (Ativan) 2 mg IVP Q6H [facility]; Protocol Last Admin: 12/02/18 21:46 Dose: Not Given Lorazepam (Ativan) 1 mg IVP Q2H PRN; Protocol PRN Reason: Symptoms of alcohol withdrawl Last Admin: 12/02/18 21:06 Dose: 1 mg Multivitamins/Minerals (Therapeutic-M Tab) 1 tab PO 0800 [facility] Last Admin: 12/02/18 11:13 Dose: Not Given Pantoprazole Sodium (Protonix Ec Tab) 40 mg PO ACB [facility] Last Admin: 12/02/18 11:11 Dose: Not Given Spironolactone (Aldactone) 50 mg PO DAILY [facility] Last Admin: 12/02/18 10:39 Dose: Not Given Thiamine HCl (Vitamin B1 Tab) 100 mg PO DAILY [facility] Last Admin: 12/02/18 10:40 Dose: Not Given - Labs Labs: 12/02/18 07:00 12/02/18 07:00 PT 14.3 SECONDS (9.4-12.5) H 12/01/18 11:10 INR 1.27 12/01/18 11:10 APTT 37.8 Seconds (26.9-38.3) 11/30/18 17:55 Attending/Attestation - Attestation I have personally seen and examined this patient.: Yes I have fully participated in the care of the patient.: Yes I have reviewed all pertinent clinical information, including history, physical exam and plan: Yes Notes (Text): p 12/02/18 23:55
[2018-12-02 13:41] LABS: HAV AB (IGM) Nonreactive (Nonreactive)
--- NOTE | 2018-12-02 14:44 | CP.PCM.PN ---
<Aleksey Chapa - Last Filed: 12/02/18 15:04> Subjective - Date & Time of Evaluation Date of Evaluation: 12/02/18 Time of Evaluation: 09:30 - Subjective Subjective: Aleksey Chapa, PGY-1 Medicine Progress Note: Pt was seen and examined this AM at bedside. Yesterday the pt has paracentesis done by IR. Pt is increasingly agitated and confused. Pt noted to be diaphoretic and had elevated BP with tachycardia. Pt was given scheduled and PRN ativan overnight and this AM was given additional ativan, geodon and IV benadryl which finally calmed down the pt before being transferred to ICU for closer monitoring. Objective - Vital Signs/Intake and Output Vital Signs (last 24 hours): Temp Pulse Resp BP Pulse Ox 98.8 F 81 25 H 88/51 L 97 12/02/18 12:00 12/02/18 14:00 12/02/18 13:59 12/02/18 14:00 12/02/18 13:59 Intake and Output: 12/02/18 12/02/18 06:59 18:59 Intake Total 780 32 Balance 780 32 - Medications Medications: Current Medications Dextrose (Dextrose 50% Inj) 0 ml IV STAT PRN; Protocol PRN Reason: Hypoglycemia Protocol Folic Acid (Folic Acid) 1 mg PO DAILY [facility] Last Admin: 12/02/18 10:39 Dose: Not Given Dextrose (Dextrose 5% In Water 1000 Ml) 1,000 mls @ 0 mls/hr IV .Q0M PRN; Protocol PRN Reason: Hypoglycemia Protocol Sodium Chloride (Sodium Chloride 0.9%) 1,000 mls @ 100 mls/hr IV .Q10H [facility] Last Admin: 12/02/18 10:43 Dose: 100 mls/hr Dexmedetomidine HCl (Precedex 400mcg/100ml) 400 mcg in 100 mls @ 8.301 mls/hr IV .Q12H3M PRN; Protocol PRN Reason: Agitation Last Titration: 12/02/18 13:39 Dose: 0.7 mcg/kg/hr, 14.526 mls/hr Insulin Human Regular (Humulin R) 0 units SC ACHS [facility]; Protocol Last Admin: 12/02/18 12:02 Dose: Not Given Lactulose (Enulose) 20 gm PO HS [facility] Last Admin: 12/01/18 21:02 Dose: 20 gm Lorazepam (Ativan) 2 mg IVP Q6H [facility]; Protocol Last Admin: 12/02/18 09:08 Dose: 2 mg Lorazepam (Ativan) 1 mg IVP Q2H PRN; Protocol PRN Reason: Symptoms of alcohol withdrawl Last Admin: 12/02/18 12:30 Dose: 1 mg Multivitamins/Minerals (Therapeutic-M Tab) 1 tab PO 0800 [facility] Last Admin: 12/02/18 11:13 Dose: Not Given Pantoprazole Sodium (Protonix Ec Tab) 40 mg PO ACB [facility] Last Admin: 12/02/18 11:11 Dose: Not Given Spironolactone (Aldactone) 50 mg PO DAILY [facility] Last Admin: 12/02/18 10:39 Dose: Not Given Thiamine HCl (Vitamin B1 Tab) 100 mg PO DAILY [facility] Last Admin: 12/02/18 10:40 Dose: Not Given - Labs Labs: 12/02/18 07:00 12/02/18 07:00 PT 14.3 SECONDS (9.4-12.5) H 12/01/18 11:10 INR 1.27 12/01/18 11:10 APTT 37.8 Seconds (26.9-38.3) 11/30/18 17:55 - Constitutional Appears: Agitated, diaphoretic, comabtive, tremulous - Head Exam Additional comments: JUANCHO bandage noted over R head laceration. Bandage is noted to be soaked through with blood after the pt became increasingly agitated - Eye Exam Eye Exam: EOMI, Normal appearance, PERRL, Scleral icterus Pupil Exam: NORMAL ACCOMODATION - ENT Exam ENT Exam: Mucous Membranes Dry, Normal Exam - Neck Exam Neck exam: Positive for: Full Rom, Normal Inspection - Respiratory Exam Respiratory Exam: Decreased Breath Sounds, Clear to Auscultation Bilateral. absent: Accessory Muscle Use, Rales, Rhonchi, Wheezes, Respiratory Distress, Stridor - Cardiovascular Exam Cardiovascular Exam: REGULAR RHYTHM, +S1, +S2 - GI/Abdominal Exam GI & Abdominal Exam: Distended, Firm (umbilical hernia with overlying skin discoloration noted), Hernia, Normal Bowel Sounds. absent: Guarding, Rebound Additional comments: prominent abdominal ascites noted, positive fluid wave - Extremities Exam Extremities exam: Positive for: normal capillary refill, pedal edema, pedal pulses present. Negative for: calf tenderness - Back Exam Back exam: NORMAL INSPECTION - Neurological Exam Neurological exam: Agitated, diaphoretic - Skin Skin Exam: Dry, Intact(except for noted laceration on R head and dressing over paracentesis access site), Normal Color, Warm Assessment and Plan - Assessment and Plan (Free Text) Assessment: 38 year old male with pmhx of alcohol abuse, untreated HTN and DM, presenting to ED with R head laceration. Found to have significant abdominal distention, umbilical hernia, ascites on CT abdomen. Pt is s/p paracentesis yesterday. CIWA 9 overnight. Plan: Abdominal Ascites s/p paracentesis 12/01 - Likely 2/2 longstanding alcohol abuse - Positive fluid wave test. CT abdomen/pelvis: large amount of ascites within the abdomen and pelvis. Mild hepatosplenomegaly. Cirrhotic changes within the liver. Abdomen U/S: "Echogenic liver may be seen in setting of hepatic parenchymal disease or fatty infiltration. Borderline hepatomegaly. Nodular hepatic contour. Splenomegaly. Small abdominal ascites." - Start spironoloctone:furosemide po at 100:40 (50mmg) - Paracentesis done by IR - 5500cc aspirated. Albumin given per GI - Will follow up ascites protein levels/cytology/after paracentesis DTs: - Pt noted to be increased confusion, agitation, and was diaphoretic with increasing BP and tachycardia - Pt given 2 additional doses of 6mg total of ativan, 10mg of geodon, and 50 IVP of benadryl - ICU team eval and taken to ICU for closer monitoring - Precedex drip in ICU - Ativan 1 mg IVP q2 prn - Continue CIWA protocol, aspiration, fall precautions - Alcohol cessation counseling - NS @ 100/hr - Will continue to monitor Liver cirrhosis - Elevated LFTs. Elevated ammonia. AST/ALT indicative of alcohol hepatitis - Start lactulose HS as pt mildly confused. - Ammonia level is now at 65 - Hepatobiliary surgery (Dr. Tovar) and GI, recs appreciated - awaiting results for hepatitis, hemochromocytosis, wilsons dz, hepatic adenoma Umbilical hernia - r/o incarceration - Protruding, nontender umbilical hernia noted on PE with overlying erythematous skin changes - General Surgery (Dr. Hidalgo) consulted, recs appreciated DM2 - A1C 5.7 - Continue ISS medium dose - Accuchecks ACHS - Hypoglycemic protocol Hx of HTN - Not on any home meds - Continue to monitor DVT/GI: SCD/protonix Case reviewed with attending physician, Dr. Rajeev Chapa PGY1 <Corina Mccarthy R - Last Filed: 12/03/18 06:58> Objective - Vital Signs/Intake and Output Vital Signs (last 24 hours): Temp Pulse Resp BP Pulse Ox 98.1 F 74 20 117/50 L 99 12/02/18 16:00 12/03/18 04:00 12/02/18 23:10 12/02/18 23:00 12/02/18 23:10 Intake and Output: 12/02/18 12/03/18 18:59 06:59 Intake Total 1028 1409 Output Total 700 100 Balance 328 1309 - Medications Medications: Current Medications Dextrose (Dextrose 50% Inj) 0 ml IV STAT PRN; Protocol PRN Reason: Hypoglycemia Protocol Folic Acid (Folic Acid) 1 mg PO DAILY [facility] Last Admin: 12/02/18 10:39 Dose: Not Given Dextrose (Dextrose 5% In Water 1000 Ml) 1,000 mls @ 0 mls/hr IV .Q0M PRN; Protocol PRN Reason: Hypoglycemia Protocol Sodium Chloride (Sodium Chloride 0.9%) 1,000 mls @ 100 mls/hr IV .Q10H [facility] Last Admin: 12/03/18 06:49 Dose: 100 mls/hr Dexmedetomidine HCl (Precedex 400mcg/100ml) 400 mcg in 100 mls @ 8.301 mls/hr IV .Q12H3M PRN; Protocol PRN Reason: Agitation Last Admin: 12/03/18 02:58 Dose: 0.5 mcg/kg/hr, 10.376 mls/hr Insulin Human Regular (Humulin R) 0 units SC ACHS [facility]; Protocol Last Admin: 12/02/18 21:47 Dose: Not Given Lactulose (Enulose) 20 gm PO HS [facility] Last Admin: 12/02/18 23:56 Dose: Not Given Lorazepam (Ativan) 2 mg IVP Q6H [facility]; Protocol Last Admin: 12/03/18 04:56 Dose: Not Given Lorazepam (Ativan) 1 mg IVP Q2H PRN; Protocol PRN Reason: Symptoms of alcohol withdrawl Last Admin: 12/02/18 21:06 Dose: 1 mg Multivitamins/Minerals (Therapeutic-M Tab) 1 tab PO 0800 [facility] Last Admin: 12/02/18 11:13 Dose: Not Given Pantoprazole Sodium (Protonix Ec Tab) 40 mg PO ACB [facility] Last Admin: 12/03/18 06:50 Dose: 40 mg Spironolactone (Aldactone) 50 mg PO DAILY [facility] Last Admin: 12/02/18 10:39 Dose: Not Given Thiamine HCl (Vitamin B1 Tab) 100 mg PO DAILY [facility] Last Admin: 12/02/18 10:40 Dose: Not Given - Labs Labs: 12/02/18 07:00 12/03/18 05:40 PT 14.3 SECONDS (9.4-12.5) H 12/01/18 11:10 INR 1.27 12/01/18 11:10 APTT 37.8 Seconds (26.9-38.3) 11/30/18 17:55 Attending/Attestation - Attestation I have personally seen and examined this patient.: Yes I have fully participated in the care of the patient.: Yes I have reviewed all pertinent clinical information, including history, physical exam and plan: Yes Notes (Text): Patient seen and examined by me with resident at approximately 9AM on 12/02/18. Case including HPI, physical exam, and assessment and plan discussed with resident. Agree with above with following additions/corrections. Patient is a 38-year-old male with past medical history significant for alcohol abuse, hypertension not on medications and diabetes not on medications presented to the emergency room with a right head laceration after shaving the hair on his scalp. Patient confused. Unable to obtain any history from patient. Patient agitated. Trying to get out of bed. Patient also diaphoretic and tachycardic. Ativan given. ICU consulted. Patient transferred to ICU for DT's. Physical exam: General: Awake and alert, confused, trying to get out of bed. HEENT: Right scalp wound with bleeding. Extraocular muscles intact, pupils equal and reactive, no scleral icterus. Oropharynx is pink and moist. No pharyngeal erythema or exudate appreciated. Neck is supple. Cardiovascular: Tachycardic S1 and S2. No murmurs, rubs, or gallops appreciated Pulmonary: Normal respiratory effort. No rhonchi, rales, or wheezing appreciated. Gastrointestinal: Soft. Distended. Positive bowel sounds all 4 quadrants. No gua rding. Positive umbilical hernia Musculoskeletal: Moves all extremities. No calf tenderness. No edema appreciated. Central nervous system: Awake and alert, confused. Hallucinating. Dermatologic: Skin warm and dry. Assessment and plan: Patient is a 38-year-old male with past medical history significant for alcohol abuse, hypertension not on medications and diabetes not on medications presented to the emergency room with a right head laceration after shaving the hair on his scalp. 1. Delirium Tremens secondary to alcohol abuse and withdrawal. Patient transferred to ICU. Now on Precedex drip. Continue thiamine, folic acid, multivitamin. Patient placed on soft restraints for own safety. Continue IV fluids. Ammonia elevated, continue lactulose. 2. Ascites, liver cirrhosis. s/p paracentesis 12/01/18 with 5500ml removed. Continue spironolactone. Abdominal ultrasound post paracentesis per radiologist showed echogenic liver may be seen in setting of hepatic parenchymal disease or fatty infiltration; borderline hepatomegaly, nodular hepatic contour; splenomegaly; small abdominal ascites. CT abd/pelvis on 11/30/18 per radiologist showed small bilateral pleural effusions and associated consolidation, large abdominal and pelvic ascites; hepatomegaly, echogenic liver, nodular hepatic contour consistent with cirrhosis, borderline splenomegaly; mucosal thickening of the right proximal transverse colon. Abdominal duplex per radiologist showed patent portal vein and hepatopetal flow. 3. Transaminitis. Alcoholic hepatitis. Elevated ammonia level. Continue lactulose. LFTS downtrending. GI recommendations appreciated. 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 4. Umbilical hernia. Patient poor surgical candidate. No obstruction. Surgical recommendations appreciated, no acute surgical intervention at this time. Case discussed in detail with the patient regarding current diagnosis, study results, and treatment plan. All questions answered. 5. History of DM2. HgbA1C 5.7. Monitor accuchecks. 6. Scalp wound. Continue with pressure dressings.
[2018-12-03] MEDS: Dexmedetomidine 400mcg/100mL 400 MCG/100 ML BOTTLE IV PRN (02:58)
[2018-12-03 06:32] LABS: BASO # 0.02 K/mm3 (0.0-2.0); BASO % 0.3 % (0.0-3.0); EOS # 0.2 (0.0-0.7); EOS % 2.9 % (1.5-5.0); HEMOGLOBIN 12.3 g/dL (14.0-18.0); LYMPH # 0.8 (1.2-3.4); LYMPH % 10.9 % (22.0-35.0); MEAN CELL VOLUME 95.6 fl (80.0-105.0); MEAN CORPUSCULAR HEMOGLOBIN 29.9 pg (25.0-35.0); MEAN CORPUSCULAR HGB CONC 31.3 g/dl (31.0-37.0); MEAN PLATELET VOLUME 12.5 fl (7.0-11.0); MONO # 0.7 (0.1-0.6); MONO % 9.1 % (1.0-6.0); RBC 4.11 10^6/uL (3.5-6.1); RED CELL DISTRIBUTION WIDTH 14.1 % (11.5-14.5); WHITE BLOOD COUNT 7.3 10^3/uL (4.5-11.0)
[2018-12-03 06:42] LABS: ALB/GLOB RATIO 0.9 (1.1-1.8); ALT/SGPT 29 U/L (7-56); AST/SGOT 128 U/L (17-59); BLOOD UREA NITROGEN 8 mg/dL (7-21); CALCIUM 7.9 mg/dL (8.4-10.5); GFR NON-AFRICAN AMERICAN > 60
[2018-12-03] MEDS: Sodium Chloride 0.9% 1,000 ML IV SCH (06:49)
[2018-12-03] MEDS: Pantoprazole 40 mg EC Tab PO SCH (06:50)
--- NOTE | 2018-12-03 07:45 | CP.PCM.PN ---
<Renetta Jackson - Last Filed: 12/03/18 09:54> Subjective - Date & Time of Evaluation Date of Evaluation: 12/03/18 Time of Evaluation: 07:30 - Subjective Subjective: Renetta Jackson DO, PGY-2: Hospitalist Progress Note for Dr. Corina Mccarthy Patient was seen and examined at bedside. He reports having no tremors, diarrhea, headache, or irritability. He is resting comfortably in the ICU on Precedex drip. He is alert, oriented to place and person, but not time. Chart review indicates no adverse events overnight. Objective - Vital Signs/Intake and Output Vital Signs (last 24 hours): Temp Pulse Resp BP Pulse Ox 98.1 F 74 20 117/50 L 99 12/02/18 16:00 12/03/18 04:00 12/02/18 23:10 12/02/18 23:00 12/02/18 23:10 Intake and Output: 12/03/18 12/03/18 06:59 18:59 Intake Total 1409 Output Total 100 Balance 1309 - Medications Medications: Current Medications Dextrose (Dextrose 50% Inj) 0 ml IV STAT PRN; Protocol PRN Reason: Hypoglycemia Protocol Folic Acid (Folic Acid) 1 mg PO DAILY [facility] Last Admin: 12/02/18 10:39 Dose: Not Given Dextrose (Dextrose 5% In Water 1000 Ml) 1,000 mls @ 0 mls/hr IV .Q0M PRN; Protocol PRN Reason: Hypoglycemia Protocol Sodium Chloride (Sodium Chloride 0.9%) 1,000 mls @ 100 mls/hr IV .Q10H [facility] Last Admin: 12/03/18 06:49 Dose: 100 mls/hr Dexmedetomidine HCl (Precedex 400mcg/100ml) 400 mcg in 100 mls @ 8.301 mls/hr IV .Q12H3M PRN; Protocol PRN Reason: Agitation Last Admin: 12/03/18 02:58 Dose: 0.5 mcg/kg/hr, 10.376 mls/hr Lactulose (Enulose) 20 gm PO HS [facility] Last Admin: 12/02/18 23:56 Dose: Not Given Lorazepam (Ativan) 2 mg IVP Q6H [facility]; Protocol Last Admin: 12/03/18 04:56 Dose: Not Given Lorazepam (Ativan) 1 mg IVP Q2H PRN; Protocol PRN Reason: Symptoms of alcohol withdrawl Last Admin: 12/02/18 21:06 Dose: 1 mg Multivitamins/Minerals (Therapeutic-M Tab) 1 tab PO 0800 [facility] Last Admin: 12/02/18 11:13 Dose: Not Given Pantoprazole Sodium (Protonix Ec Tab) 40 mg PO ACB [facility] Last Admin: 12/03/18 06:50 Dose: 40 mg Spironolactone (Aldactone) 50 mg PO DAILY [facility] Last Admin: 12/02/18 10:39 Dose: Not Given Thiamine HCl (Vitamin B1 Tab) 100 mg PO DAILY [facility] Last Admin: 12/02/18 10:40 Dose: Not Given - Labs Labs: 12/03/18 05:40 12/03/18 05:40 PT 14.3 SECONDS (9.4-12.5) H 12/01/18 11:10 INR 1.27 12/01/18 11:10 APTT 37.8 Seconds (26.9-38.3) 11/30/18 17:55 - Constitutional Appears: Non-toxic, No Acute Distress - Eye Exam Eye Exam: EOMI, Normal appearance, Scleral icterus Pupil Exam: NORMAL ACCOMODATION - ENT Exam ENT Exam: Mucous Membranes Moist, Normal Oropharynx - Neck Exam Neck Exam: Normal Inspection - Respiratory Exam Respiratory Exam: Clear to Ausculation Bilateral, NORMAL BREATHING PATTERN. absent: Accessory Muscle Use - Cardiovascular Exam Cardiovascular Exam: RRR, +S1, +S2 - GI/Abdominal Exam GI & Abdominal Exam: Distended. absent: Rebound Additional comments: umbilical hernia noted - Extremities Exam Extremities Exam: Normal Inspection. absent: Calf Tenderness - Neurological Exam Neurological Exam: Alert, Awake, Oriented x3 Neuro motor strength exam: Left Upper Extremity: 5, Right Upper Extremity: 5, Left Lower Extremity: 5, Right Lower Extremity: 5 - Psychiatric Exam Psychiatric exam: Normal Affect, Normal Mood - Skin Skin Exam: Dry, Intact, Warm Additional comments: jaundiced Assessment and Plan - Assessment and Plan (Free Text) Assessment: 38 year old male with pmhx of alcohol abuse, untreated HTN and DM, presenting to ED with R head laceration. Found to have significant abdominal distention, umbilical hernia, ascites on CT abdomen. Pt is s/p paracentesis and was noted to be in delirium tremens yesterday, not responding appropriately to IV benzodiazepines, and thus admitted to the ICU for closer monitoring and Precedex drip. Plan: Abdominal Ascites s/p paracentesis 12/01 - Likely 2/2 longstanding alcohol abuse with possibly new-onset liver cirrhosis - Positive fluid wave test. CT abdomen/pelvis: large amount of ascites within the abdomen and pelvis. Mild hepatosplenomegaly. Cirrhotic changes within the liver. Abdomen U/S: "Echogenic liver may be seen in setting of hepatic parenchymal disease or fatty infiltration. Borderline hepatomegaly. Nodular hepatic contour. Splenomegaly. Small abdominal ascites." - Spironolactone 50 mg Daily - Paracentesis done by IR - 5500cc aspirated. Albumin given per GI - Will follow up ascites protein levels/cytology/after paracentesis DTs: - Precedex drip in ICU - Ativan 2 mg IVP q6h [facility] - Ativan 1 mg IVP q2 prn - Continue CIWA protocol, aspiration, fall precautions - Alcohol cessation counseling - NS @ 100/hr - Will continue to monitor Liver cirrhosis - Elevated LFTs. Elevated ammonia. AST/ALT indicative of alcohol hepatitis - Ammonia level was 65 and today was 52 - Hepatobiliary surgery (Dr. Tovar) and GI, recs appreciated - awaiting results for hepatitis, hemochromotosis, wilsons dz, hepatic adenoma Hepatic encephalopathy - Lactulose 20 mg TID to see if patient's mental status improves - Patient still confused, but not somnolent or difficulty to arouse - Will obtain ammonia if patient appears confused, lethargic, or exhibits any change in mental status Umbilical hernia - r/o incarceration - Protruding, nontender umbilical hernia noted on PE with overlying erythematous skin changes - General Surgery (Dr. Hidalgo) consulted, recs appreciated Hx of HTN - Not on any home meds - Continue to monitor DVT/GI: SCD/protonix Case reviewed with attending physician, Dr. Rajeev Mccarthy <Corina Mccarthy R - Last Filed: 12/03/18 15:04> Objective - Vital Signs/Intake and Output Vital Signs (last 24 hours): Temp Pulse Resp BP Pulse Ox 98.4 F 81 27 H 99/55 L 98 12/03/18 12:00 12/03/18 12:00 12/03/18 08:30 12/03/18 08:13 12/03/18 08:30 Intake and Output: 12/03/18 12/03/18 06:59 18:59 Intake Total 1409 Output Total 100 Balance 1309 - Medications Medications: Current Medications Dextrose (Dextrose 50% Inj) 0 ml IV STAT PRN; Protocol PRN Reason: Hypoglycemia Protocol Folic Acid (Folic Acid) 1 mg PO DAILY [facility] Last Admin: 12/03/18 09:03 Dose: 1 mg Dextrose (Dextrose 5% In Water 1000 Ml) 1,000 mls @ 0 mls/hr IV .Q0M PRN; Protocol PRN Reason: Hypoglycemia Protocol Lactulose (Enulose) 20 gm PO BID [facility] Stop: 12/05/18 18:01 Lactulose (Enulose) 20 gm PO HS [facility] Lorazepam (Ativan) 2 mg IVP Q6H [facility]; Protocol Last Admin: 12/03/18 10:14 Dose: 2 mg Lorazepam (Ativan) 1 mg IVP Q2H PRN; Protocol PRN Reason: Symptoms of alcohol withdrawl Last Admin: 12/02/18 21:06 Dose: 1 mg Multivitamins/Minerals (Therapeutic-M Tab) 1 tab PO 0800 [facility] Last Admin: 12/03/18 09:03 Dose: 1 tab Pantoprazole Sodium (Protonix Ec Tab) 40 mg PO ACB [facility] Last Admin: 12/03/18 06:50 Dose: 40 mg Spironolactone (Aldactone) 50 mg PO DAILY [facility] Last Admin: 12/03/18 09:21 Dose: 50 mg Thiamine HCl (Vitamin B1 Tab) 100 mg PO DAILY [facility] Last Admin: 12/03/18 09:02 Dose: 100 mg - Labs Labs: 12/03/18 05:40 12/03/18 05:40 PT 14.3 SECONDS (9.4-12.5) H 12/01/18 11:10 INR 1.27 12/01/18 11:10 APTT 37.8 Seconds (26.9-38.3) 11/30/18 17:55 Attending/Attestation - Attestation I have personally seen and examined this patient.: Yes I have fully participated in the care of the patient.: Yes I have reviewed all pertinent clinical information, including history, physical exam and plan: Yes Notes (Text): Patient seen and examined by me with resident at approximately 8:20 AM on 12/03/18. Case including HPI, physical exam, and assessment and plan discussed with resident. Agree with above with following additions/corrections. Patient is a 38-year-old male with past medical history significant for alcohol abuse, hypertension not on medications and diabetes not on medications presented to the emergency room with a right head laceration after shaving the hair on his scalp. Patient awake and alert. Off precedex drip. Still with some confusion. Less agitated. Off soft restraints. Denies any abdominal pain. No nausea or vomiting. Tolerating diet. Patient is afebrile. Denies chest pain or shortness of breath. Physical exam: General: Awake and alert, confused, sitting up in bed in no acute distress HEENT: Right scalp wound scabbed. Extraocular muscles intact, pupils equal and reactive, positive scleral icterus. Oropharynx is pink and moist. No pharyngeal erythema or exudate appreciated. Neck is supple. Cardiovascular: Normal rhythm. Normal S1 and S2. No murmurs, rubs, or gallops appreciated Pulmonary: Normal respiratory effort. No rhonchi, rales, or wheezing appreciated. Gastrointestinal: Soft. Distended. Nontender. Positive bowel sounds all 4 quadr ants. No guarding. Positive umbilical hernia Musculoskeletal: Moves all extremities. No calf tenderness. No edema appreciated. Central nervous system: Awake and alert, confused. Follows commands. No focal deficits appreciated. Dermatologic: Skin warm and dry. Assessment and plan: Patient is a 38-year-old male with past medical history significant for alcohol abuse, hypertension not on medications and diabetes not on medications presented to the emergency room with a right head laceration afte r shaving the hair on his scalp. 1. Delirium Tremens secondary to alcohol abuse and withdrawal. S/P Precedex drip. Continue thiamine, folic acid, multivitamin. Continue ativan scheduled and prn 2. Hepatic encephalopathy. Improving. Continue lactulose. Ammonia level downtrending. Follow up repeat levels in AM. 3. Ascites, liver cirrhosis. s/p paracentesis 12/01/18 with 5500ml removed. Continue spironolactone. GI recommendations appreciated. Abdominal ultrasound post paracentesis per radiologist showed echogenic liver may be seen in setting of hepatic parenchymal disease or fatty infiltration; borderline hepatomegaly, nodular hepatic contour; splenomegaly; small abdominal ascites. CT abd/pelvis on 11/30/18 per radiologist showed small bilateral pleural effusions and associated consolidation, large abdominal and pelvic ascites; hepatomegaly, echogenic liver, nodular hepatic contour consistent with cirrhosis, borderline splenomegaly; mucosal thickening of the right proximal transverse colon. Abdominal duplex per radiologist showed patent portal vein and hepatopetal flow. 4. Tranasminitis. Alcoholic hepatitis. LFTS downtrending. Continue to monitor. 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 5. Umbilical hernia. Patient poor surgical candidate. No obstruction. Surgical recommendations appreciated, no acute surgical intervention at this time. 6. History of DM2. HgbA1C 5.7. Insulin sliding scale stopped 7. Scalp wound. Healing, continue to monitor
--- NOTE | 2018-12-03 08:38 | CP.CCUPN ---
CCU Subjective - Physician Review Subjective (Free Text): Juan Pablo Hector, , PGY-1 MICU Progress Note for Dr. Rodríguez Patient was seen and examined at bedside this AM. He is now off precedex drip and is awake, alert with no complaints. CCU Objective - Vital Signs / Intake & Output Vital Signs (Last 4 hours): Vital Signs Pulse 12/03/18 08:00 74 Intake and Output (Last 8hrs): Intake & Output 12/02/18 12/03/18 12/03/18 22:59 06:59 14:59 Intake Total 996 1409 Output Total 700 100 Balance 296 1309 Weight 167 lb Intake: IV 996 1409 IVF 800 1200 Precedex 115 122 Output: Urine 700 100 Urine, Voided 700 100 Other: # Bowel Movements 0 - Physical Exam Head: Positive for: Normocephalic, Abrasion (noted to right side of his head) Pupils: Positive for: PERRL Extroacular Muscles: Positive for: EOMI Conjunctiva: Positive for: Normal, Icteric Respiratory/Chest: Positive for: Decreased Breath Sounds (Decreased air entry at the bases). Negative for: Respiratory Distress, Accessory Muscle Use Cardiovascular: Positive for: Regular Rate and Rhythm, Normal S1, S2. Negative for: Murmurs Abdomen: Positive for: Distention, Hernias (vental hernia, reducible, ). Negative for: Tenderness, Peritoneal Signs Upper Extremity: Positive for: Normal Inspection. Negative for: Cyanosis, Edema Lower Extremity: Positive for: Edema (trace edema noted to bilateral lower extremity) Neurological: Positive for: GCS=15, Speech Normal Skin: Positive for: Warm, Dry, Normal Color. Negative for: Rashes Psychiatric: Positive for: Alert, Oriented x 3, Normal Insight, Normal Concentration - Medications Active Medications: Active Medications Generic Name Dose Route Start Last Admin Trade Name Freq PRN Reason Stop Dose Admin Dextrose 0 ml 11/30/18 20:15 Dextrose 50% Inj IV STAT PRN Hypoglycemia Protocol Protocol Folic Acid 1 mg 12/01/18 10:00 12/02/18 10:39 Folic Acid PO Not Given DAILY [facility] Dextrose 1,000 mls @ 0 mls/hr 11/30/18 20:15 Dextrose 5% In Water 1000 Ml IV .Q0M PRN Hypoglycemia Protocol Protocol Per Protocol Dexmedetomidine HCl 400 mcg in 100 mls @ 8.301 mls/hr 12/02/18 12:07 12/03/18 02:58 Precedex 400mcg/100ml IV 0.5 mcg/kg/hr .Q12H3M PRN 10.376 mls/hr Agitation Administration Protocol 0.4 MCG/KG/HR Lactulose 20 gm 12/01/18 22:00 12/02/18 23:56 Enulose PO Not Given HS [facility] Lorazepam 2 mg 12/01/18 09:45 12/03/18 04:56 Ativan IVP Not Given Q6H [facility] Protocol Lorazepam 1 mg 12/01/18 09:35 12/02/18 21:06 Ativan IVP 1 mg Q2H PRN Administration Symptoms of alcohol withdrawl Protocol Multivitamins/Minerals 1 tab 12/01/18 08:00 12/02/18 11:13 Therapeutic-M Tab PO Not Given 0800 [facility] Pantoprazole Sodium 40 mg 12/02/18 07:30 12/03/18 06:50 Protonix Ec Tab PO 40 mg ACB [facility] Administration Spironolactone 50 mg 12/01/18 11:45 12/02/18 10:39 Aldactone PO Not Given DAILY [facility] Thiamine HCl 100 mg 12/01/18 10:00 12/02/18 10:40 Vitamin B1 Tab PO Not Given DAILY [facility] - Patient Studies Lab Studies: Microbiology Studies 12/01/18 12:45 Gram Stain - Final Ascitic Fluid Body Fluid Culture - Preliminary NO GROWTH AFTER 24 HOURS Lab Studies 12/03/18 12/03/18 12/03/18 Range/Units 08:00 05:40 05:40 WBC (4.5-11.0) 10^3/uL RBC (3.5-6.1) 10^6/uL Hgb (14.0-18.0) g/dL Hct (42.0-52.0) % MCV (80.0-105.0) fl MCH (25.0-35.0) pg MCHC (31.0-37.0) g/dl RDW (11.5-14.5) % Plt Count (120.0-450.0) 10^3/uL MPV (7.0-11.0) fl Neut % (Auto) (50.0-68.0) % Lymph % (Auto) (22.0-35.0) % Sully % (Auto) (1.0-6.0) % Eos % (Auto) (1.5-5.0) % Baso % (Auto) (0.0-3.0) % Lymph # (Auto) (1.2-3.4) Sully # (Auto) (0.1-0.6) Eos # (Auto) (0.0-0.7) Baso # (Auto) (0.0-2.0) K/mm3 Absolute Neuts (auto) (1.4-6.5) Sodium 138 (132-148) mmol/L Potassium 3.7 (3.6-5.0) mmol/L Chloride 106 (98-107) mmol/L Carbon Dioxide 25 (21-33) mmol/L Anion Gap 11 (10-20) BUN 8 (7-21) mg/dL Creatinine 0.5 L (0.8-1.5) mg/dl Est GFR ( Amer) > 60 Est GFR (Non-Af Amer) > 60 POC Glucose (mg/dL) 95 (65-110) mg/dL Random Glucose 93 (70-110) mg/dL Calcium 7.9 L (8.4-10.5) mg/dL Phosphorus 4.5 (2.5-4.5) mg/dL Magnesium 1.9 (1.7-2.2) mg/dL Total Bilirubin 2.9 H (0.2-1.3) mg/dL Direct Bilirubin 2.0 H (0.0-0.4) mg/dL AST 128 H (17-59) U/L ALT 29 (7-56) U/L Alkaline Phosphatase 311 H D (38-126) U/L Ammonia 52 H (9-33) umol/L Total Protein 6.3 (5.8-8.3) g/dL Albumin 3.0 (3.0-4.8) g/dL Globulin 3.4 gm/dL Albumin/Globulin Ratio 0.9 L (1.1-1.8) Hepatitis A IgM Ab (Nonreactive) Hepatitis A Ab Total (Nonreactive) 12/03/18 12/02/18 12/02/18 Range/Units 05:40 21:39 16:38 WBC 7.3 (4.5-11.0) 10^3/uL RBC 4.11 (3.5-6.1) 10^6/uL Hgb 12.3 L (14.0-18.0) g/dL Hct 39.3 L (42.0-52.0) % MCV 95.6 (80.0-105.0) fl MCH 29.9 (25.0-35.0) pg MCHC 31.3 (31.0-37.0) g/dl RDW 14.1 (11.5-14.5) % Plt Count 86 L (120.0-450.0) 10^3/uL MPV 12.5 H (7.0-11.0) fl Neut % (Auto) 76.8 H (50.0-68.0) % Lymph % (Auto) 10.9 L (22.0-35.0) % Sully % (Auto) 9.1 H (1.0-6.0) % Eos % (Auto) 2.9 (1.5-5.0) % Baso % (Auto) 0.3 (0.0-3.0) % Lymph # (Auto) 0.8 L (1.2-3.4) Sully # (Auto) 0.7 H (0.1-0.6) Eos # (Auto) 0.2 (0.0-0.7) Baso # (Auto) 0.02 (0.0-2.0) K/mm3 Absolute Neuts (auto) 5.59 (1.4-6.5) Sodium (132-148) mmol/L Potassium (3.6-5.0) mmol/L Chloride (98-107) mmol/L Carbon Dioxide (21-33) mmol/L Anion Gap (10-20) BUN (7-21) mg/dL Creatinine (0.8-1.5) mg/dl Est GFR ( Amer) Est GFR (Non-Af Amer) POC Glucose (mg/dL) 141 H 113 H (65-110) mg/dL Random Glucose (70-110) mg/dL Calcium (8.4-10.5) mg/dL Phosphorus (2.5-4.5) mg/dL Magnesium (1.7-2.2) mg/dL Total Bilirubin (0.2-1.3) mg/dL Direct Bilirubin (0.0-0.4) mg/dL AST (17-59) U/L ALT (7-56) U/L Alkaline Phosphatase (38-126) U/L Ammonia (9-33) umol/L Total Protein (5.8-8.3) g/dL Albumin (3.0-4.8) g/dL Globulin gm/dL Albumin/Globulin Ratio (1.1-1.8) Hepatitis A IgM Ab (Nonreactive) Hepatitis A Ab Total (Nonreactive) 12/02/18 12/02/18 12/02/18 Range/Units 11:54 10:00 07:00 WBC (4.5-11.0) 10^3/uL RBC (3.5-6.1) 10^6/uL Hgb (14.0-18.0) g/dL Hct (42.0-52.0) % MCV (80.0-105.0) fl MCH (25.0-35.0) pg MCHC (31.0-37.0) g/dl RDW (11.5-14.5) % Plt Count (120.0-450.0) 10^3/uL MPV (7.0-11.0) fl Neut % (Auto) (50.0-68.0) % Lymph % (Auto) (22.0-35.0) % Sully % (Auto) (1.0-6.0) % Eos % (Auto) (1.5-5.0) % Baso % (Auto) (0.0-3.0) % Lymph # (Auto) (1.2-3.4) Sully # (Auto) (0.1-0.6) Eos # (Auto) (0.0-0.7) Baso # (Auto) (0.0-2.0) K/mm3 Absolute Neuts (auto) (1.4-6.5) Sodium 134 (132-148) mmol/L Potassium 3.6 (3.6-5.0) mmol/L Chloride 97 L (98-107) mmol/L Carbon Dioxide 24 (21-33) mmol/L Anion Gap 16 (10-20) BUN 4 L (7-21) mg/dL Creatinine 0.4 L (0.8-1.5) mg/dl Est GFR ( Amer) > 60 Est GFR (Non-Af Amer) > 60 POC Glucose (mg/dL) 109 (65-110) mg/dL Random Glucose 90 (70-110) mg/dL Calcium 8.6 (8.4-10.5) mg/dL Phosphorus 3.1 (2.5-4.5) mg/dL Magnesium 1.7 (1.7-2.2) mg/dL Total Bilirubin 3.2 H (0.2-1.3) mg/dL Direct Bilirubin 1.9 H (0.0-0.4) mg/dL AST 134 H (17-59) U/L ALT 22 (7-56) U/L Alkaline Phosphatase 439 H (38-126) U/L Ammonia 65 H D (9-33) umol/L Total Protein 7.5 (5.8-8.3) g/dL Albumin 3.7 (3.0-4.8) g/dL Globulin 3.8 gm/dL Albumin/Globulin Ratio 1.0 L (1.1-1.8) Hepatitis A IgM Ab (Nonreactive) Hepatitis A Ab Total (Nonreactive) 12/01/18 Range/Units 11:10 WBC (4.5-11.0) 10^3/uL RBC (3.5-6.1) 10^6/uL Hgb (14.0-18.0) g/dL Hct (42.0-52.0) % MCV (80.0-105.0) fl MCH (25.0-35.0) pg MCHC (31.0-37.0) g/dl RDW (11.5-14.5) % Plt Count (120.0-450.0) 10^3/uL MPV (7.0-11.0) fl Neut % (Auto) (50.0-68.0) % Lymph % (Auto) (22.0-35.0) % Sully % (Auto) (1.0-6.0) % Eos % (Auto) (1.5-5.0) % Baso % (Auto) (0.0-3.0) % Lymph # (Auto) (1.2-3.4) Sully # (Auto) (0.1-0.6) Eos # (Auto) (0.0-0.7) Baso # (Auto) (0.0-2.0) K/mm3 Absolute Neuts (auto) (1.4-6.5) Sodium (132-148) mmol/L Potassium (3.6-5.0) mmol/L Chloride (98-107) mmol/L Carbon Dioxide (21-33) mmol/L Anion Gap (10-20) BUN (7-21) mg/dL Creatinine (0.8-1.5) mg/dl Est GFR ( Amer) Est GFR (Non-Af Amer) POC Glucose (mg/dL) (65-110) mg/dL Random Glucose (70-110) mg/dL Calcium (8.4-10.5) mg/dL Phosphorus (2.5-4.5) mg/dL Magnesium (1.7-2.2) mg/dL Total Bilirubin (0.2-1.3) mg/dL Direct Bilirubin (0.0-0.4) mg/dL AST (17-59) U/L ALT (7-56) U/L Alkaline Phosphatase (38-126) U/L Ammonia (9-33) umol/L Total Protein (5.8-8.3) g/dL Albumin (3.0-4.8) g/dL Globulin gm/dL Albumin/Globulin Ratio (1.1-1.8) Hepatitis A IgM Ab Nonreactive (Nonreactive) Hepatitis A Ab Total Reactive H (Nonreactive) Laboratory Results - last 24 hr 12/01/18 12/02/18 12/02/18 11:10 07:00 10:00 WBC RBC Hgb Hct MCV MCH MCHC RDW Plt Count MPV Neut % (Auto) Lymph % (Auto) Sully % (Auto) Eos % (Auto) Baso % (Auto) Lymph # (Auto) Sully # (Auto) Eos # (Auto) Baso # (Auto) Absolute Neuts (auto) Sodium 134 Potassium 3.6 Chloride 97 L Carbon Dioxide 24 Anion Gap 16 BUN 4 L Creatinine 0.4 L Est GFR ( Amer) > 60 Est GFR (Non-Af Amer) > 60 POC Glucose (mg/dL) Random Glucose 90 Calcium 8.6 Phosphorus 3.1 Magnesium 1.7 Total Bilirubin 3.2 H Direct Bilirubin 1.9 H AST 134 H ALT 22 Alkaline Phosphatase 439 H Ammonia 65 H D Total Protein 7.5 Albumin 3.7 Globulin 3.8 Albumin/Globulin Ratio 1.0 L Hepatitis A IgM Ab Nonreactive Hepatitis A Ab Total Reactive H 12/02/18 12/02/18 12/02/18 11:54 16:38 21:39 WBC RBC Hgb Hct MCV MCH MCHC RDW Plt Count MPV Neut % (Auto) Lymph % (Auto) Sully % (Auto) Eos % (Auto) Baso % (Auto) Lymph # (Auto) Sully # (Auto) Eos # (Auto) Baso # (Auto) Absolute Neuts (auto) Sodium Potassium Chloride Carbon Dioxide Anion Gap BUN Creatinine Est GFR ( Amer) Est GFR (Non-Af Amer) POC Glucose (mg/dL) 109 113 H 141 H Random Glucose Calcium Phosphorus Magnesium Total Bilirubin Direct Bilirubin AST ALT Alkaline Phosphatase Ammonia Total Protein Albumin Globulin Albumin/Globulin Ratio Hepatitis A IgM Ab Hepatitis A Ab Total 12/03/18 12/03/18 12/03/18 05:40 05:40 05:40 WBC 7.3 RBC 4.11 Hgb 12.3 L Hct 39.3 L MCV 95.6 MCH 29.9 MCHC 31.3 RDW 14.1 Plt Count 86 L MPV 12.5 H Neut % (Auto) 76.8 H Lymph % (Auto) 10.9 L Sully % (Auto) 9.1 H Eos % (Auto) 2.9 Baso % (Auto) 0.3 Lymph # (Auto) 0.8 L Sully # (Auto) 0.7 H Eos # (Auto) 0.2 Baso # (Auto) 0.02 Absolute Neuts (auto) 5.59 Sodium 138 Potassium 3.7 Chloride 106 Carbon Dioxide 25 Anion Gap 11 BUN 8 Creatinine 0.5 L Est GFR ( Amer) > 60 Est GFR (Non-Af Amer) > 60 POC Glucose (mg/dL) Random Glucose 93 Calcium 7.9 L Phosphorus 4.5 Magnesium 1.9 Total Bilirubin 2.9 H Direct Bilirubin 2.0 H AST 128 H ALT 29 Alkaline Phosphatase 311 H D Ammonia 52 H Total Protein 6.3 Albumin 3.0 Globulin 3.4 Albumin/Globulin Ratio 0.9 L Hepatitis A IgM Ab Hepatitis A Ab Total 12/03/18 08:00 WBC RBC Hgb Hct MCV MCH MCHC RDW Plt Count MPV Neut % (Auto) Lymph % (Auto) Sully % (Auto) Eos % (Auto) Baso % (Auto) Lymph # (Auto) Sully # (Auto) Eos # (Auto) Baso # (Auto) Absolute Neuts (auto) Sodium Potassium Chloride Carbon Dioxide Anion Gap BUN Creatinine Est GFR ( Amer) Est GFR (Non-Af Amer) POC Glucose (mg/dL) 95 Random Glucose Calcium Phosphorus Magnesium Total Bilirubin Direct Bilirubin AST ALT Alkaline Phosphatase Ammonia Total Protein Albumin Globulin Albumin/Globulin Ratio Hepatitis A IgM Ab Hepatitis A Ab Total Fingerstick Blood Sugar Results: 141 Critical Care Progress Note - Nutrition Nutrition: Nutrition Category Date Time Status Regular Diet [DIET] Diets 12/03/18 Breakfast Ordered Assessment/Plan - Assessment and Plan (Free Text) Assessment: 38 yo M with PMH of untreated HTN, DM2, EtOH abuse, and EtOH induced cirrhosis admitted to MICU yesterday for DTs. Plan: Neuro: AAOx3, no focal deficit, moving extremities past midline, able to protect airway Reorient as necessary Cardio: RRR, normotensive, no signs of HD compromise EKG: TTE: Troponin: Maintain MAP>65 Monitor for S/Sx of HD compromise Pulm: ABG: CXR: Maintain SpO2 >90%. GI: Tolerating regular diet well without nausea/vomiting /Nephro: BUN/Cr stable at UOP Continue Strict I & O Replete electrolytes as needed Maintain euvolemia Endo: Random glucose: Maintain euglycemia Heme/Onc: H/H stable at Continue monitoring H/H and for sx of HD compromise ID: Afebrile, no leukocytosis Blood Cx: Urine Cx: Sputum Cx: F/u linares cx, procal, lactate Monitor for sx of infection DVT/GI PPX: Full Code Diet: Transfer to telemetry Patient seen, examined with, and plan confirmed with my attending Dr. Marcos Hector, D.O. IM Resident PGY-1 Pager:[phone]
[2018-12-03] MEDS: Multivitamin With Minerals Tab PO SCH (09:03)
--- NOTE | 2018-12-03 10:42 | CP.PCM.PN ---
Subjective - Date & Time of Evaluation Date of Evaluation: 12/03/18 Time of Evaluation: 07:15 - Subjective Subjective: Patient seen and examined at bedside. Pt is awake, alert, on his cell phone currently, in NAD. Requesting breakfast Objective - Vital Signs/Intake and Output Vital Signs (last 24 hours): Temp Pulse Resp BP Pulse Ox 98.8 F 81 27 H 99/55 L 98 12/03/18 08:00 12/03/18 08:30 12/03/18 08:30 12/03/18 08:13 12/03/18 08:30 Intake and Output: 12/03/18 12/03/18 06:59 18:59 Intake Total 1409 Output Total 100 Balance 1309 - Medications Medications: Current Medications Dextrose (Dextrose 50% Inj) 0 ml IV STAT PRN; Protocol PRN Reason: Hypoglycemia Protocol Folic Acid (Folic Acid) 1 mg PO DAILY [facility] Last Admin: 12/03/18 09:03 Dose: 1 mg Dextrose (Dextrose 5% In Water 1000 Ml) 1,000 mls @ 0 mls/hr IV .Q0M PRN; Protocol PRN Reason: Hypoglycemia Protocol Lactulose (Enulose) 20 gm PO Q8 [facility] Last Admin: 12/03/18 10:13 Dose: 20 gm Lorazepam (Ativan) 2 mg IVP Q6H [facility]; Protocol Last Admin: 12/03/18 10:14 Dose: 2 mg Lorazepam (Ativan) 1 mg IVP Q2H PRN; Protocol PRN Reason: Symptoms of alcohol withdrawl Last Admin: 12/02/18 21:06 Dose: 1 mg Multivitamins/Minerals (Therapeutic-M Tab) 1 tab PO 0800 [facility] Last Admin: 12/03/18 09:03 Dose: 1 tab Pantoprazole Sodium (Protonix Ec Tab) 40 mg PO ACB [facility] Last Admin: 12/03/18 06:50 Dose: 40 mg Spironolactone (Aldactone) 50 mg PO DAILY [facility] Last Admin: 12/03/18 09:21 Dose: 50 mg Thiamine HCl (Vitamin B1 Tab) 100 mg PO DAILY [facility] Last Admin: 12/03/18 09:02 Dose: 100 mg - Labs Labs: 12/03/18 05:40 12/03/18 05:40 PT 14.3 SECONDS (9.4-12.5) H 12/01/18 11:10 INR 1.27 12/01/18 11:10 APTT 37.8 Seconds (26.9-38.3) 11/30/18 17:55 - Constitutional Appears: Non-toxic, No Acute Distress - Head Exam Head Exam: NORMAL INSPECTION - Eye Exam Eye Exam: Normal appearance - ENT Exam ENT Exam: Mucous Membranes Moist - Neck Exam Neck Exam: Full ROM - Respiratory Exam Respiratory Exam: Clear to Ausculation Bilateral, NORMAL BREATHING PATTERN - Cardiovascular Exam Cardiovascular Exam: REGULAR RHYTHM, +S1, +S2 - GI/Abdominal Exam GI & Abdominal Exam: Soft, Normal Bowel Sounds Additional comments: +ascites - Extremities Exam Extremities Exam: Full ROM - Neurological Exam Neurological Exam: Alert, Awake - Psychiatric Exam Psychiatric exam: Normal Mood - Skin Skin Exam: Normal Color, Warm Assessment and Plan - Assessment and Plan (Free Text) Assessment: 38yo male with EtOH withdrawal Dehydration HTN EtOH abuse R head laceration DTs - currently more calm, awake, alert, in NAD, requesting breakfast, pleasant - labs, imaging, chart reviewed - Patient off precedex drip, stable, HR 80s, BP stable Recommend: - supp o2 as needed, duonebs PRN, IS - Monitor off abx - BP control - DC Precedex drip - Thiamine, Folic Acid, MVT - DC IVF - resume diet - Lasix Spironolactone - replete K, Mg - Ativan PRN - DC 1:1 - [facility] protocol - DVT ppx, HSQ - GI ppx, PPI - stable, transfer to tele
--- NOTE | 2018-12-03 13:28 | CP.PCM.PN ---
<Kay Mccarthy - Last Filed: 12/03/18 13:25> Subjective - Date & Time of Evaluation Date of Evaluation: 12/03/18 Time of Evaluation: 07:10 - Subjective Subjective: PGY5 GI Follow-up Pt seen and examined bedside more alert today and oriented x3 denies any rigors off of precedex in the AM ROS: 12 point ROS conducted, neg other than above Objective - Vital Signs/Intake and Output Vital Signs (last 24 hours): Temp Pulse Resp BP Pulse Ox 98.4 F 81 27 H 99/55 L 98 12/03/18 12:00 12/03/18 12:00 12/03/18 08:30 12/03/18 08:13 12/03/18 08:30 Intake and Output: 12/03/18 12/03/18 06:59 18:59 Intake Total 1409 Output Total 100 Balance 1309 - Medications Medications: Current Medications Dextrose (Dextrose 50% Inj) 0 ml IV STAT PRN; Protocol PRN Reason: Hypoglycemia Protocol Folic Acid (Folic Acid) 1 mg PO DAILY [facility] Last Admin: 12/03/18 09:03 Dose: 1 mg Dextrose (Dextrose 5% In Water 1000 Ml) 1,000 mls @ 0 mls/hr IV .Q0M PRN; Protocol PRN Reason: Hypoglycemia Protocol Lactulose (Enulose) 20 gm PO Q8 [facility] Last Admin: 12/03/18 10:13 Dose: 20 gm Lorazepam (Ativan) 2 mg IVP Q6H [facility]; Protocol Last Admin: 12/03/18 10:14 Dose: 2 mg Lorazepam (Ativan) 1 mg IVP Q2H PRN; Protocol PRN Reason: Symptoms of alcohol withdrawl Last Admin: 12/02/18 21:06 Dose: 1 mg Multivitamins/Minerals (Therapeutic-M Tab) 1 tab PO 0800 [facility] Last Admin: 12/03/18 09:03 Dose: 1 tab Pantoprazole Sodium (Protonix Ec Tab) 40 mg PO ACB [facility] Last Admin: 12/03/18 06:50 Dose: 40 mg Spironolactone (Aldactone) 50 mg PO DAILY [facility] Last Admin: 12/03/18 09:21 Dose: 50 mg Thiamine HCl (Vitamin B1 Tab) 100 mg PO DAILY [facility] Last Admin: 12/03/18 09:02 Dose: 100 mg - Labs Labs: 12/03/18 05:40 12/03/18 05:40 PT 14.3 SECONDS (9.4-12.5) H 12/01/18 11:10 INR 1.27 12/01/18 11:10 APTT 37.8 Seconds (26.9-38.3) 11/30/18 17:55 - Constitutional Appears: Non-toxic, No Acute Distress - Head Exam Head Exam: NORMOCEPHALIC - Eye Exam Eye Exam: Normal appearance - ENT Exam ENT Exam: Mucous Membranes Moist, Normal Exam - Neck Exam Neck Exam: Normal Inspection - Respiratory Exam Respiratory Exam: Clear to Ausculation Bilateral, NORMAL BREATHING PATTERN. absent: Decreased Breath Sounds, Rales, Wheezes, Respiratory Distress - Cardiovascular Exam Cardiovascular Exam: REGULAR RHYTHM, +S1, +S2 - GI/Abdominal Exam GI & Abdominal Exam: Distended, Soft, Normal Bowel Sounds. absent: Firm, Guarding, Rigid, Tenderness, Organomegaly, Pulsatile Mass, Rebound - Extremities Exam Extremities Exam: absent: Joint Swelling - Neurological Exam Neurological Exam: Alert, Awake, Oriented x3 - Psychiatric Exam Psychiatric exam: Normal Affect, Normal Mood - Skin Skin Exam: Dry, Intact, Normal Color, Warm Assessment and Plan - Assessment and Plan (Free Text) Assessment: 38 year old male with past medical history of alcohol abuse, hypertension, and diabetes mellitus presents with right head laceration after shaving his head yesterday morning. He was subsequently found to have significant abdominal asc ites likely 2/[address] shows cirrhotic changes of liver, mild HSM, large amount of ascites. Prior abdominal ultrasound from 2017 showed fatty infiltration of liver. It seems likely this is a new diagnosis of hepatic cirrhosis. Patient likely has decompensated alcoholic cirrhosis with significant ascites. Now with DTs Plan: -hepatitis panel, AFP, ceruloplasmin: Neg. anti-smooth muscle Ab, anti- mitochondrial Ab, anti-microsomal Ab, [id number]: pending -Unremarkable iron and TIBC. -s/p paracentesis; 5.5L; labs for SAAG pending -Will plan for EGD in the future -Continue with [facility] protocol for potential alcohol withdrawal; being transfered from ICU -Maddrey's Discriminant Score is 8.4 which indicated good prognosis for patient. continue ICU care watch for DTs Patient plan discussed with Dr. Gallagher <Clint Gallagher V - Last Filed: 12/04/18 00:00> Objective - Vital Signs/Intake and Output Vital Signs (last 24 hours): Temp Pulse Resp BP Pulse Ox 98.6 F 111 H 44 H 131/72 72 L 12/03/18 20:00 12/03/18 20:00 12/03/18 19:10 12/03/18 18:26 12/03/18 14:40 Intake and Output: 12/03/18 12/04/18 18:59 06:59 Intake Total 1200 Output Total 1000 Balance 200 - Medications Medications: Current Medications Dextrose (Dextrose 50% Inj) 0 ml IV STAT PRN; Protocol PRN Reason: Hypoglycemia Protocol Folic Acid (Folic Acid) 1 mg PO DAILY [facility] Last Admin: 12/03/18 09:03 Dose: 1 mg Dextrose (Dextrose 5% In Water 1000 Ml) 1,000 mls @ 0 mls/hr IV .Q0M PRN; Protocol PRN Reason: Hypoglycemia Protocol Lactulose (Enulose) 20 gm PO BID [facility] Stop: 12/05/18 18:01 Last Admin: 12/03/18 17:09 Dose: 20 gm Lactulose (Enulose) 20 gm PO HS [facility] Lorazepam (Ativan) 2 mg IVP Q6H [facility]; Protocol Last Admin: 12/03/18 16:53 Dose: 2 mg Lorazepam (Ativan) 1 mg IVP Q2H PRN; Protocol PRN Reason: Symptoms of alcohol withdrawl Last Admin: 12/02/18 21:06 Dose: 1 mg Multivitamins/Minerals (Therapeutic-M Tab) 1 tab PO 0800 [facility] Last Admin: 12/03/18 09:03 Dose: 1 tab Pantoprazole Sodium (Protonix Ec Tab) 40 mg PO ACB [facility] Last Admin: 12/03/18 06:50 Dose: 40 mg Spironolactone (Aldactone) 50 mg PO DAILY [facility] Last Admin: 12/03/18 09:21 Dose: 50 mg Thiamine HCl (Vitamin B1 Tab) 100 mg PO DAILY [facility] Last Admin: 12/03/18 09:02 Dose: 100 mg - Labs Labs: 12/03/18 05:40 12/03/18 05:40 PT 14.3 SECONDS (9.4-12.5) H 12/01/18 11:10 INR 1.27 12/01/18 11:10 APTT 37.8 Seconds (26.9-38.3) 11/30/18 17:55 Attending/Attestation - Attestation I have personally seen and examined this patient.: Yes I have fully participated in the care of the patient.: Yes I have reviewed all pertinent clinical information, including history, physical exam and plan: Yes Notes (Text): p 12/03/18 23:59
[2018-12-03 15:44] VITALS: O2SAT 72
[2018-12-03 21:07] LABS: CERULOPLASMIN 41 mg/dL (18-36)
[2018-12-04 06:57] LABS: BASO # 0.04 K/mm3 (0.0-2.0); BASO % 0.5 % (0.0-3.0); EOS # 0.2 (0.0-0.7); EOS % 2.3 % (1.5-5.0); HEMOGLOBIN 12.6 g/dL (14.0-18.0); LYMPH # 0.9 (1.2-3.4); LYMPH % 11.3 % (22.0-35.0); MEAN CELL VOLUME 95.2 fl (80.0-105.0); MEAN CORPUSCULAR HGB CONC 31.5 g/dl (31.0-37.0); MEAN PLATELET VOLUME 11.7 fl (7.0-11.0); MONO # 0.9 (0.1-0.6); MONO % 11.3 % (1.0-6.0); RBC 4.2 10^6/uL (3.5-6.1); RED CELL DISTRIBUTION WIDTH 14.7 % (11.5-14.5); WHITE BLOOD COUNT 7.9 10^3/uL (4.5-11.0)
[2018-12-04 07:00] LABS: ALB/GLOB RATIO 0.9 (1.1-1.8); ALBUMIN 3.3 g/dL (3.0-4.8); ALT/SGPT 30 U/L (7-56); AST/SGOT 118 U/L (17-59); BILIRUBIN,DIRECT 1.4 mg/dL (0.0-0.4); BLOOD UREA NITROGEN 8 mg/dL (7-21); CALCIUM 8.1 mg/dL (8.4-10.5); GFR NON-AFRICAN AMERICAN > 60
[2018-12-04] MEDS ORDERED: Potassium Chloride 20 mEq ER Tab PO STA (07:06)
[2018-12-04] MEDS: Pantoprazole 40 mg EC Tab PO SCH (07:59)
[2018-12-04] MEDS: Multivitamin With Minerals Tab PO SCH (07:59)
--- NOTE | 2018-12-04 10:01 | CP.PCM.PN ---
<Anne Marie Trevizo - Last Filed: 12/04/18 11:55> Subjective - Date & Time of Evaluation Date of Evaluation: 12/04/18 Time of Evaluation: 09:55 - Subjective Subjective: Anne Marie Trevizo, PGY-1, GI Progress Note for Dr. Gallagher Patient seen and evaluated at bedside. Patient had no acute overnight events. Patient denies any symptoms at this time. He is AAOx3. Objective - Vital Signs/Intake and Output Vital Signs (last 24 hours): Temp Pulse Resp BP Pulse Ox 99.3 F 93 H 44 H 131/72 72 L 12/04/18 03:45 12/04/18 03:45 12/03/18 19:10 12/03/18 18:26 12/03/18 14:40 Intake and Output: 12/04/18 12/04/18 06:59 18:59 Intake Total 800 Output Total 3 Balance 797 - Medications Medications: Current Medications Dextrose (Dextrose 50% Inj) 0 ml IV STAT PRN; Protocol PRN Reason: Hypoglycemia Protocol Folic Acid (Folic Acid) 1 mg PO DAILY [facility] Last Admin: 12/03/18 09:03 Dose: 1 mg Dextrose (Dextrose 5% In Water 1000 Ml) 1,000 mls @ 0 mls/hr IV .Q0M PRN; P rotocol PRN Reason: Hypoglycemia Protocol Lactulose (Enulose) 20 gm PO BID [facility] Stop: 12/05/18 18:01 Last Admin: 12/03/18 17:09 Dose: 20 gm Lactulose (Enulose) 20 gm PO HS [facility] Lorazepam (Ativan) 2 mg IVP Q6H [facility]; Protocol Last Admin: 12/04/18 05:58 Dose: Not Given Lorazepam (Ativan) 1 mg IVP Q2H PRN; Protocol PRN Reason: Symptoms of alcohol withdrawl Last Admin: 12/02/18 21:06 Dose: 1 mg Multivitamins/Minerals (Therapeutic-M Tab) 1 tab PO 0800 [facility] Last Admin: 12/04/18 07:59 Dose: 1 tab Pantoprazole Sodium (Protonix Ec Tab) 40 mg PO ACB [facility] Last Admin: 12/04/18 07:59 Dose: 40 mg Spironolactone (Aldactone) 50 mg PO DAILY [facility] Last Admin: 12/03/18 09:21 Dose: 50 mg Thiamine HCl (Vitamin B1 Tab) 100 mg PO DAILY [facility] Last Admin: 12/03/18 09:02 Dose: 100 mg - Labs Labs: 12/04/18 06:35 12/04/18 06:35 PT 14.3 SECONDS (9.4-12.5) H 12/01/18 11:10 INR 1.27 12/01/18 11:10 APTT 37.8 Seconds (26.9-38.3) 11/30/18 17:55 - Constitutional Appears: Well, Non-toxic, No Acute Distress - Head Exam Head Exam: ATRAUMATIC, NORMAL INSPECTION, NORMOCEPHALIC - Eye Exam Eye Exam: EOMI, PERRL Additional comments: anicteric - ENT Exam ENT Exam: Mucous Membranes Moist - Respiratory Exam Respiratory Exam: Clear to Auscultation Bilateral, NORMAL BREATHING PATTERN - Cardiovascular Exam Cardiovascular Exam: REGULAR RHYTHM, RRR, +S1, +S2 - GI/Abdominal Exam GI & Abdominal Exam: Distended, Firm, Hernia (umbilical), Hypoactive Bowel Sounds. absent: Rebound, Rigid, Tenderness - Extremities Exam Extremities exam: Positive for: full ROM, normal inspection. Negative for: pedal edema - Neurological Exam Neurological exam: Alert, CN II-XII Intact, Oriented x3 - Skin Skin Exam: Dry, Intact, Normal Color Assessment and Plan - Assessment and Plan (Free Text) Assessment: 38 year old male with past medical history of alcohol abuse, hypertension, and diabetes mellitus presents with right head laceration after shaving his head yesterday morning. He was subsequently found to have significant abdominal ascites likely 2/[address] shows cirrhotic changes of liver, mild HSM, large amount of ascites. Prior abdominal ultrasound from 2017 showed fatty infiltration of liver. It seems likely this is a new diagnosis of hepatic cirrhosis. Patient likely has decompensated alcoholic cirrhosis with significant ascites. Plan: -Ceruloplasmin found to be elevated at 41 -Unremarkable AFP -Hepatitis panel unremarkable, but does not have Hep B antibody positive. Will student success counselor regarding Hep B vaccine -Unremarkable iron and TIBC and ferritin -5.5 L of fluid removed from paracentesis on Tuesday. Given albumin status post paracentesis -Fluid was cloudy, had WBC of 299, RBC of 1972, total cell count of 100, mononuclear cell count of 90.6, polymorphonuclear cell count of 9.4 -Awaiting albumin and culture of fluid. -Unlikely patient has SBP. -Continue spirinolactone 50 mg daily -Patient started on low sodium diet. -Will start lactulose for bowel movements as patient has been constipated which will also cover for hepatic encephalopathy. -Will plan for EGD in the future -Last CIWA was 0 -MELD score is 13. Estimated 3 month mortality is 6% -Maddrey's Discriminant Score is 8.4 which indicated good prognosis for patient. Patient plan discussed with Dr. Gallagher <Clint Gallagher V - Last Filed: 12/04/18 23:46> Objective - Vital Signs/Intake and Output Vital Signs (last 24 hours): Temp Pulse Resp BP Pulse Ox 99 F 96 H 27 H 136/81 72 L 12/04/18 20:00 12/04/18 20:00 12/04/18 19:20 12/04/18 17:40 12/03/18 14:40 - Medications Medications: Current Medications Dextrose (Dextrose 50% Inj) 0 ml IV STAT PRN; Protocol PRN Reason: Hypoglycemia Protocol Folic Acid (Folic Acid) 1 mg PO DAILY [facility] Last Admin: 12/04/18 10:10 Dose: 1 mg Furosemide (Lasix) 20 mg PO DAILY [facility] Last Admin: 12/04/18 17:40 Dose: 20 mg Dextrose (Dextrose 5% In Water 1000 Ml) 1,000 mls @ 0 mls/hr IV .Q0M PRN; Protocol PRN Reason: Hypoglycemia Protocol Lactulose (Enulose) 20 gm PO HS [facility] Last Admin: 12/04/18 21:12 Dose: 20 gm Lorazepam (Ativan) 1 mg IVP Q2H PRN; Protocol PRN Reason: Symptoms of alcohol withdrawl Last Admin: 12/02/18 21:06 Dose: 1 mg Multivitamins/Minerals (Therapeutic-M Tab) 1 tab PO 0800 [facility] Last Admin: 12/04/18 07:59 Dose: 1 tab Pantoprazole Sodium (Protonix Ec Tab) 40 mg PO ACB [facility] Last Admin: 12/04/18 07:59 Dose: 40 mg Spironolactone (Aldactone) 50 mg PO DAILY [facility] Last Admin: 12/04/18 10:10 Dose: 50 mg Thiamine HCl (Vitamin B1 Tab) 100 mg PO DAILY [facility] Last Admin: 12/04/18 10:10 Dose: 100 mg - Labs Labs: 12/04/18 06:35 12/04/18 06:35 PT 14.3 SECONDS (9.4-12.5) H 12/01/18 11:10 INR 1.27 12/01/18 11:10 APTT 37.8 Seconds (26.9-38.3) 11/30/18 17:55 Attending/Attestation - Attestation I have personally seen and examined this patient.: Yes I have fully participated in the care of the patient.: Yes I have reviewed all pertinent clinical information, including history, physical exam and plan: Yes Notes (Text): p 12/04/18 23:46
--- NOTE | 2018-12-04 16:53 | CP.PCM.PN ---
<Nash Griffith - Last Filed: 12/04/18 16:53> Subjective - Date & Time of Evaluation Date of Evaluation: 12/04/18 Time of Evaluation: 11:00 - Subjective Subjective: INTERNAL MEDICINE PROGRESS NOTE FOR DR. JAMEL Griffith PGY1 Pt seen and examined at bedside. No acute events overnight. Pts overnight CIWA scores 1,1 & 2. Pt only required 2mg scheduled ativan this am, hasn't requires prn ativan. This am, pt is denying complaints, is a&o x 3, tolerating diet. He denies 12 point ROS Objective - Vital Signs/Intake and Output Vital Signs (last 24 hours): Temp Pulse Resp BP Pulse Ox 99.3 F 93 H 44 H 131/72 72 L 12/04/18 03:45 12/04/18 03:45 12/03/18 19:10 12/03/18 18:26 12/03/18 14:40 Intake and Output: 12/04/18 12/04/18 06:59 18:59 Intake Total 800 Output Total 3 Balance 797 - Medications Medications: Current Medications Dextrose (Dextrose 50% Inj) 0 ml IV STAT PRN; Protocol PRN Reason: Hypoglycemia Protocol Folic Acid (Folic Acid) 1 mg PO DAILY [facility] Last Admin: 12/04/18 10:10 Dose: 1 mg Furosemide (Lasix) 20 mg PO DAILY [facility] Dextrose (Dextrose 5% In Water 1000 Ml) 1,000 mls @ 0 mls/hr IV .Q0M PRN; Pr otocol PRN Reason: Hypoglycemia Protocol Lactulose (Enulose) 20 gm PO HS [facility] Lorazepam (Ativan) 1 mg IVP Q2H PRN; Protocol PRN Reason: Symptoms of alcohol withdrawl Last Admin: 12/02/18 21:06 Dose: 1 mg Multivitamins/Minerals (Therapeutic-M Tab) 1 tab PO 0800 [facility] Last Admin: 12/04/18 07:59 Dose: 1 tab Pantoprazole Sodium (Protonix Ec Tab) 40 mg PO ACB [facility] Last Admin: 12/04/18 07:59 Dose: 40 mg Spironolactone (Aldactone) 50 mg PO DAILY [facility] Last Admin: 12/04/18 10:10 Dose: 50 mg Thiamine HCl (Vitamin B1 Tab) 100 mg PO DAILY [facility] Last Admin: 12/04/18 10:10 Dose: 100 mg - Labs Labs: 12/04/18 06:35 12/04/18 06:35 PT 14.3 SECONDS (9.4-12.5) H 12/01/18 11:10 INR 1.27 12/01/18 11:10 APTT 37.8 Seconds (26.9-38.3) 11/30/18 17:55 - Constitutional Appears: Well, Non-toxic, No Acute Distress - Head Exam Additional comments: Bandage noted around head, C/D/I - Eye Exam Eye Exam: Normal appearance, PERRL Pupil Exam: PERRL - ENT Exam ENT Exam: Normal Exam - Neck Exam Neck Exam: Normal Inspection - Respiratory Exam Respiratory Exam: Clear to Ausculation Bilateral, NORMAL BREATHING PATTERN - Cardiovascular Exam Cardiovascular Exam: Tachycardia, +S1, +S2 - GI/Abdominal Exam GI & Abdominal Exam: Distended, Soft. absent: Tenderness, Rebound Additional comments: distended. Dressing noted over paracentesis insertion site. C/D/I, no erythema/purulence - Extremities Exam Extremities Exam: Normal Inspection. absent: Calf Tenderness - Back Exam Back Exam: NORMAL INSPECTION - Neurological Exam Neurological Exam: Alert, Awake, Oriented x3 - Psychiatric Exam Psychiatric exam: Normal Affect, Normal Mood - Skin Skin Exam: Dry, Intact, Warm Assessment and Plan - Assessment and Plan (Free Text) Assessment: 38-year-old male with past medical history significant for alcohol abuse, hypertension not on medications and diabetes not on medications presented to the emergency room with a right head laceration after shaving the hair on his scalp. Pt s/p paracentesis. Admitted to ICU for delirium tremens requiring precedex titratable drip. Currently being monitored on telemetry Plan: Abdominal Ascites s/p paracentesis 12/01 - Likely 2/2 longstanding alcohol abuse with possibly new-onset liver cirrhosis. Positive fluid wave test. CT abdomen/pelvis: large amount of ascites within the abdomen and pelvis. Mild hepatosplenomegaly. Cirrhotic changes within the liver. Abdomen U/S: "Echogenic liver may be seen in setting of hepatic parenchymal disease or fatty infiltration. Borderline hepatomegaly. Nodular hepatic contour. Splenomegaly. Small abdominal ascites." - Continue Spironolactone 50 mg Daily, lasix 20mg po. Monitor K levels, replete as necessary - Paracentesis done by IR - 5500cc aspirated. Albumin given per GI DTs: - currently off of precedex drip. transferred to telemtry - continue Ativan 1 mg IVP q2 prn - Continue CIWA protocol, aspiration, fall precautions - Alcohol cessation counseling - Will continue to monitor Liver cirrhosis - Elevated LFTs. Elevated ammonia. AST/ALT indicative of alcohol hepatitis - Ammonia level has downtrended - Hepatobiliary surgery (Dr. Tovar) and GI, recs appreciated - awaiting results for hemochromotosis - ceruloplasmin mildly elevated, hepatitis panel negative, afb negative, ferritin wnl - Pt counselled on ETOH cessation Hepatic encephalopathy - continue lactulose 20mg HS - mental status improved, pt a&o x 3 - ammonia levels trending down Umbilical hernia - r/o incarceration - Protruding, reducible nontender umbilical hernia noted on PE with overlying erythematous skin changes - General Surgery (Dr. Hidalgo) consulted, recs appreciated. No acute intervention at this time Hx of HTN - Not on any home meds - Continue to monitor DVT/GI: SCD/protonix Case reviewed with attending physician, Dr. Jamel Griffith PGY1 <Raoul Zhao - Last Filed: 12/05/18 15:03> Objective - Vital Signs/Intake and Output Vital Signs (last 24 hours): Temp Pulse Resp BP Pulse Ox 99 F 91 H 24 121/62 72 L 12/04/18 20:00 12/05/18 10:20 12/05/18 10:20 12/05/18 09:07 12/03/18 14:40 Intake and Output: 12/05/18 12/05/18 06:59 18:59 Intake Total 200 Output Total 400 Balance -200 - Labs Labs: 12/05/18 05:40 12/05/18 05:40 PT 14.3 SECONDS (9.4-12.5) H 12/01/18 11:10 INR 1.27 12/01/18 11:10 APTT 37.8 Seconds (26.9-38.3) 11/30/18 17:55 Attending/Attestation - Attestation I have personally seen and examined this patient.: Yes I have fully participated in the care of the patient.: Yes I have reviewed all pertinent clinical information, including history, physical exam and plan: Yes Notes (Text): 12/05/18 14:59 Attending note; Patient seen and examined in ICU. Patient denies any abdominal pain. Denies any fevers, chills. Denies any urinary, bowel symptoms Tolerating diet. Patient is a 38-year-old male with past medical history significant for alcohol abuse, hypertension not on medications and diabetes not on medications presented to the emergency room with a right head laceration after shaving the hair on his scalp. 1. Delirium Tremens secondary to alcohol abuse and withdrawal. S/P Precedex drip. Currently off Precedex drip. Patient is alert and awake . withdrawal symptoms improved continue thiamine, folic acid, multivitamin. Continue ativan prn. 2. Hepatic encephalopathy. Improvied. 3. Ascites, liver cirrhosis. s/p paracentesis 12/01/18 with 5500ml removed. Continue spironolactone. GI recommendations appreciated. Abdominal ultrasound post paracentesis showed echogenic liver may be seen in setting of hepatic parenchymal disease or fatty infiltration; borderline hepatomegaly, nodular hepatic contour; splenomegaly; small abdominal ascites. CT abd/pelvis on 11/30/18 per radiologist showed small bilateral pleural effusions and associated consolidation, large abdominal and pelvic ascites; hepatomegaly, echogenic liver, nodular hepatic contour consistent with cirrhosis, borderline splenomegaly; mucosal thickening of the right proximal transverse colon. Abdominal duplex showed patent portal vein and hepatopetal flow. 4. Tranasminitis. Alcoholic hepatitis. LFTS downtrending. Continue to monitor. 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 5. Umbilical hernia. Patient poor surgical candidate. No obstruction. Surgical recommendations appreciated, no acute surgical intervention at this time. Transfer out of ICU. Out of bed as tolerated. Complete alcohol cessation is strongly advised. Patient [place] [facility] [place]. Patient will be advised to follow-up with [facility] hepatology clinic.
[2018-12-04 21:38] VITALS: TEMP 99
[2018-12-05 06:15] LABS: BASO # 0.04 K/mm3 (0.0-2.0); BASO % 0.5 % (0.0-3.0); EOS # 0.2 (0.0-0.7); EOS % 2.7 % (1.5-5.0); HEMOGLOBIN 12.9 g/dL (14.0-18.0); LYMPH # 1.1 (1.2-3.4); LYMPH % 12.8 % (22.0-35.0); MEAN CELL VOLUME 94.6 fl (80.0-105.0); MEAN CORPUSCULAR HEMOGLOBIN 30.2 pg (25.0-35.0); MEAN CORPUSCULAR HGB CONC 31.9 g/dl (31.0-37.0); MEAN PLATELET VOLUME 11.8 fl (7.0-11.0); MONO # 1.1 (0.1-0.6); MONO % 12.7 % (1.0-6.0); RBC 4.27 10^6/uL (3.5-6.1); RED CELL DISTRIBUTION WIDTH 14.6 % (11.5-14.5); WHITE BLOOD COUNT 8.4 10^3/uL (4.5-11.0)
[2018-12-05 06:49] LABS: ALB/GLOB RATIO 0.9 (1.1-1.8); ALBUMIN 3.6 g/dL (3.0-4.8); ALT/SGPT 40 U/L (7-56); AST/SGOT 122 U/L (17-59); BILIRUBIN,DIRECT 1.3 mg/dL (0.0-0.4); BLOOD UREA NITROGEN 7 mg/dL (7-21); CALCIUM 8.7 mg/dL (8.4-10.5); GFR NON-AFRICAN AMERICAN > 60
[2018-12-05] MEDS: Pantoprazole 40 mg EC Tab PO SCH (07:41)
[2018-12-05] MEDS: Multivitamin With Minerals Tab PO SCH (07:41)
--- NOTE | 2018-12-05 08:36 | CP.PCM.PN ---
Subjective - Date & Time of Evaluation Date of Evaluation: 12/05/18 Time of Evaluation: 08:33 - Subjective Subjective: Anne Marie Trevizo, PGY-1, GI Progress Note for Dr. Gallagher Patient seen and evaluated at bedside. Patient had no acute overnight events. Patient has no complaints at this time. He reports improved abdominal distension. He had 5 bowel movements over the past 24 hours. Objective - Vital Signs/Intake and Output Vital Signs (last 24 hours): Temp Pulse Resp BP Pulse Ox 99 F 96 H 27 H 136/81 72 L 12/04/18 20:00 12/04/18 20:00 12/04/18 19:20 12/04/18 17:40 12/03/18 14:40 - Medications Medications: Current Medications Dextrose (Dextrose 50% Inj) 0 ml IV STAT PRN; Protocol PRN Reason: Hypoglycemia Protocol Folic Acid (Folic Acid) 1 mg PO DAILY [facility] Last Admin: 12/04/18 10:10 Dose: 1 mg Furosemide (Lasix) 20 mg PO DAILY [facility] Last Admin: 12/04/18 17:40 Dose: 20 mg Dextrose (Dextrose 5% In Water 1000 Ml) 1,000 mls @ 0 mls/hr IV .Q0M PRN; Protocol PRN Reason: Hypoglycemia Protocol Lactulose (Enulose) 10 gm PO HS [facility] Lorazepam (Ativan) 1 mg IVP Q2H PRN; Protocol PRN Reason: Symptoms of alcohol withdrawl Last Admin: 12/02/18 21:06 Dose: 1 mg Multivitamins/Minerals (Therapeutic-M Tab) 1 tab PO 0800 [facility] Last Admin: 12/05/18 07:41 Dose: 1 tab Pantoprazole Sodium (Protonix Ec Tab) 40 mg PO ACB [facility] Last Admin: 12/05/18 07:41 Dose: 40 mg Spironolactone (Aldactone) 50 mg PO DAILY [facility] Last Admin: 12/04/18 10:10 Dose: 50 mg Thiamine HCl (Vitamin B1 Tab) 100 mg PO DAILY [facility] Last Admin: 12/04/18 10:10 Dose: 100 mg - Labs Labs: 12/05/18 05:40 12/05/18 05:40 PT 14.3 SECONDS (9.4-12.5) H 12/01/18 11:10 INR 1.27 12/01/18 11:10 APTT 37.8 Seconds (26.9-38.3) 11/30/18 17:55 - Constitutional Appears: Well, Non-toxic, No Acute Distress - Head Exam Head Exam: ATRAUMATIC, NORMAL INSPECTION, NORMOCEPHALIC - Eye Exam Eye Exam: EOMI, PERRL Additional comments: anicteric - ENT Exam ENT Exam: Mucous Membranes Moist - Respiratory Exam Respiratory Exam: Clear to Auscultation Bilateral, NORMAL BREATHING PATTERN - Cardiovascular Exam Cardiovascular Exam: REGULAR RHYTHM, RRR, +S1, +S2 - GI/Abdominal Exam GI & Abdominal Exam: Distended, Firm, Hernia (umbilical), Hypoactive Bowel Sounds. absent: Rebound, Rigid, Tenderness - Extremities Exam Extremities exam: Positive for: full ROM, normal inspection. Negative for: pedal edema - Neurological Exam Neurological exam: Alert, CN II-XII Intact, Oriented x3 - Skin Skin Exam: Dry, Intact, Normal Color Assessment and Plan - Assessment and Plan (Free Text) Assessment: 38 year old male with past medical history of alcohol abuse, hypertension, and diabetes mellitus presents with right head laceration after shaving his head yesterday morning. He was subsequently found to have significant abdominal ascites likely 2/[address] shows cirrhotic changes of liver, mild HSM, large amount of ascites. Prior abdominal ultrasound from 2017 showed fatty infiltration of liver. It seems likely this is a new diagnosis of hepatic cirrhosis. Patient likely has decompensated alcoholic cirrhosis with significant ascites. Plan: -Ceruloplasmin found to be elevated at 41 -Unremarkable AFP -Hepatitis panel unremarkable, but does not have Hep B antibody positive. Will funeral planning counselor regarding Hep B vaccine -Unremarkable iron, TIBC and ferritin -5.5 L of fluid removed from paracentesis on Tuesday. Given albumin status post paracentesis -Fluid was cloudy, had WBC of 299, RBC of 1972, total cell count of 100, mononuclear cell count of 90.6, polymorphonuclear cell count of 9.4 -Culture of ascites negative. -Awaiting albumin -Unlikely patient has SBP. -Continue spirinolactone 50 mg daily -Patient continued on low sodium diet. -Will reduce lactulose for bowel movements as patient had more than 3 bowel movements in last 24 hours which will also cover for hepatic encephalopathy. -Will plan for EGD in the future -Last CIWA was 0 -MELD score is 13. Estimated 3 month mortality is 6% -Madvero's Discriminant Score is 8.4 which indicated good prognosis for patient. Patient plan discussed with Dr. Gallagher
[2018-12-05 09:08] VITALS: BP 121/62
[2018-12-05 10:33] VITALS: PULSE 91; RESP 24
--- NOTE | 2018-12-05 11:13 | CP.PCM.DIS ---
<NachoNash - Last Filed: 12/05/18 11:05> Provider - Provider Date of Admission: 11/30/18 19:41 Attending physician: Raoul hZao MD Primary care physician: [facility] PROVIDER Consults: 11/30/18 19:56 General Surgery Consult Stat Comment: Consulting Provider: Kaz Rodrigues Consulting Physician: Kaz Rodrigues Reason for Consult: ventral hernia 11/30/18 21:02 Physiatry Consult Routine Comment: Consulting Provider: Roshan Powell Consulting Physician: Roshan Powell Reason for Consult: alcohol hepatitis, liver cirrhosis 12/01/18 05:12 Consult [Physician Consult] Routine Comment: lft's elevation Consulting Provider: Clint Gallagher V Consulting Physician: Clint Gallagher V Reason for Consult: lft's elevation 12/01/18 10:58 Physician Consult Routine Comment: Consulting Provider: Bernardo Dong Consulting Physician: Bernardo Dong Reason for Consult: paracentesis, cirrhosis 2/2 ETOH abuse 12/02/18 09:08 Consult [Physician Consult] Routine Comment: Consulting Provider: Arie Rodríguez Consulting Physician: Arie Rodríguez Reason for Consult: alcohol withdrawal, needs precedex drip 12/02/18 11:08 Nursing Referral for Wound Care Routine Comment: Physician Instructions: Reason For Exam: right frontal lacaration 12/04/18 09:08 Air And Water Filler [Case Management Referral] Routine Comment: Physician Instructions: Reason For Exam: AA meeting Reason for Referral: Discharge Planning 12/04/18 12:27 Social Work Referral Routine Comment: ericka care [facility] er[facility] care Physician Instructions: Reason For Exam: ericka care, [facility] care Time Spent in preparation of Discharge (in minutes): 45 Diagnosis - Discharge Diagnosis (1) Alcohol abuse Status: Chronic (2) Cirrhosis Status: Chronic (3) Ascites Status: Chronic (4) Status post abdominal paracentesis Status: Resolved (5) Prediabetes Status: Chronic (6) Ventral hernia Status: Chronic Hospital Course - Lab Results Lab Results: Micro Results 12/01/18 12:45 Ascitic Fluid Gram Stain - Final 12/01/18 12:45 Ascitic Fluid Body Fluid Culture - Preliminary NO GROWTH AFTER 3 DAYS 12/02/18 11:00 Nose MRSA Culture (Admit) - Final MRSA NOT DETECTED Most Recent Lab Values WBC 8.4 10^3/uL (4.5-11.0) 12/05/18 05:40 RBC 4.27 10^6/uL (3.5-6.1) 12/05/18 05:40 Hgb 12.9 g/dL (14.0-18.0) L 12/05/18 05:40 Hct 40.4 % (42.0-52.0) L 12/05/18 05:40 MCV 94.6 fl (80.0-105.0) 12/05/18 05:40 MCH 30.2 pg (25.0-35.0) 12/05/18 05:40 MCHC 31.9 g/dl (31.0-37.0) 12/05/18 05:40 RDW 14.6 % (11.5-14.5) H 12/05/18 05:40 Plt Count 135 10^3/uL (120.0-450.0) 12/05/18 05:40 MPV 11.8 fl (7.0-11.0) H 12/05/18 05:40 Neut % (Auto) 71.3 % (50.0-68.0) H 12/05/18 05:40 Lymph % (Auto) 12.8 % (22.0-35.0) L 12/05/18 05:40 [place] % (Auto) 12.7 % (1.0-6.0) H 12/05/18 05:40 Eos % (Auto) 2.7 % (1.5-5.0) 12/05/18 05:40 Baso % (Auto) 0.5 % (0.0-3.0) 12/05/18 05:40 Lymph # (Auto) 1.1 (1.2-3.4) L 12/05/18 05:40 [place] # (Auto) 1.1 (0.1-0.6) H 12/05/18 05:40 Eos # (Auto) 0.2 (0.0-0.7) 12/05/18 05:40 Baso # (Auto) 0.04 K/mm3 (0.0-2.0) 12/05/18 05:40 Absolute Neuts (auto) 6.02 (1.4-6.5) 12/05/18 05:40 PT 14.3 SECONDS (9.4-12.5) H 12/01/18 11:10 INR 1.27 12/01/18 11:10 APTT 37.8 Seconds (26.9-38.3) 11/30/18 17:55 Sodium 134 mmol/L (132-148) 12/05/18 05:40 Potassium 3.9 mmol/L (3.6-5.0) 12/05/18 05:40 Chloride 100 mmol/L (98-107) 12/05/18 05:40 Carbon Dioxide 25 mmol/L (21-33) 12/05/18 05:40 Anion Gap 13 (10-20) 12/05/18 05:40 BUN 7 mg/dL (7-21) 12/05/18 05:40 Creatinine 0.5 mg/dl (0.8-1.5) L 12/05/18 05:40 Est GFR ( Amer) > 60 12/05/18 05:40 Est GFR (Non-Af Amer) > 60 12/05/18 05:40 POC Glucose (mg/dL) 107 mg/dL (65-110) 12/05/18 07:37 Random Glucose 104 mg/dL (70-110) 12/05/18 05:40 Hemoglobin A1c 5.7 % (4.2-6.5) 11/30/18 17:55 Calcium 8.7 mg/dL (8.4-10.5) 12/05/18 05:40 Phosphorus 4.5 mg/dL (2.5-4.5) 12/03/18 05:40 Magnesium 1.9 mg/dL (1.7-2.2) 12/03/18 05:40 Iron 142 ug/dL (45-180) 12/01/18 14:00 TIBC 333 ug/dL (261-462) 12/01/18 14:00 % Saturation 43 % (20-55) 12/01/18 14:00 Ferritin 53.3 ng/mL 12/01/18 14:00 Total Bilirubin 2.3 mg/dL (0.2-1.3) H 12/05/18 05:40 Direct Bilirubin 1.3 mg/dL (0.0-0.4) H 12/05/18 05:40 AST 122 U/L (17-59) H 12/05/18 05:40 ALT 40 U/L (7-56) 12/05/18 05:40 Alkaline Phosphatase 366 U/L (38-126) H 12/05/18 05:40 Ammonia 30 umol/L (9-33) 12/05/18 05:40 Lactate Dehydrogenase 770 U/L (333-699) H 11/30/18 17:55 Total Protein 7.6 g/dL (5.8-8.3) 12/05/18 05:40 Albumin 3.6 g/dL (3.0-4.8) 12/05/18 05:40 Globulin 4.0 gm/dL 12/05/18 05:40 Albumin/Globulin Ratio 0.9 (1.1-1.8) L 12/05/18 05:40 Ceruloplasmin 41 mg/dL (18-36) H 12/01/18 14:00 Triglycerides 164 mg/dL (35-160) H 11/30/18 17:55 Cholesterol 197 mg/dL (130-200) 11/30/18 17:55 LDL Cholesterol Direct 137 mg/dL (0-129) H 11/30/18 17:55 HDL Cholesterol 43 mg/dL (29-60) 11/30/18 17:55 Alpha Fetoprotein 2.9 ng/mL (0.0-7.5) 12/01/18 10:01 Free T4 1.26 ng/dL (0.78-2.19) 11/30/18 17:55 TSH 3rd Generation 3.41 mIU/mL (0.46-4.68) 11/30/18 17:55 Urine Color Salena (YELLOW) 11/30/18 22:45 Urine Appearance Clear (CLEAR) 11/30/18 22:45 Urine pH 7.0 (4.7-8.0) 11/30/18 22:45 Ur Specific Chicken 1.010 (1.005-1.035) 11/30/18 22:45 Urine Protein Trace mg/dL (<30 mg/dL) H 11/30/18 22:45 Urine Glucose (UA) Negative mg/dL (NEGATIVE) 11/30/18 22:45 Urine Ketones Trace mg/dL (NEGATIVE) H 11/30/18 22:45 Urine Blood Small (NEGATIVE) H 11/30/18 22:45 Urine Nitrate Negative (NEGATIVE) 11/30/18 22:45 Urine Bilirubin Moderate (NEGATIVE) H 11/30/18 22:45 Urine Urobilinogen 2.0 E.U./dL (<1 E.U./dL) H 11/30/18 22:45 Ur Leukocyte Esterase Negative Temo/uL (NEGATIVE) 11/30/18 22:45 Urine RBC 15 - 20 /hpf (0-2) H 11/30/18 22:45 Urine WBC 2 - 5 /hpf (0-6) 11/30/18 22:45 Ur Epithelial Cells 4 - 5 /hpf (0-5) 11/30/18 22:45 Fluid Source Peritoneal/ascites 12/01/18 12:30 Fluid Appearance Sl cloudy (CLEAR) 12/01/18 12:30 Fluid WBC 299.0 /uL (0.0-300.0) 12/01/18 12:30 Fluid RBC 1972.0 /uL (0.0-0.0) H 12/01/18 12:30 Fluid Tot Cell Count 100 (0-0) H 12/01/18 12:30 Fluid Mononuclear Cell 90.6 % (0-0) H 12/01/18 12:30 Fl Polymorphonucl Cell 9.4 % (0-0) H 12/01/18 12:30 Fluid Comment Yellow 12/01/18 12:30 Urine Opiates Screen Negative (NEGATIVE) 11/30/18 22:45 Urine Methadone Screen Negative (NEGATIVE) 11/30/18 22:45 Ur Barbiturates Screen Negative (NEGATIVE) 11/30/18 22:45 Ur Phencyclidine Scrn Negative (NEGATIVE) 11/30/18 22:45 Ur Amphetamines Screen Negative (NEGATIVE) 11/30/18 22:45 U Benzodiazepines Scrn Negative (NEGATIVE) 11/30/18 22:45 U Oth Cocaine Metabols Negative (NEGATIVE) 11/30/18 22:45 U Cannabinoids Screen Negative (NEGATIVE) 11/30/18 22:45 Alcohol, Quantitative 249 mg/dL (0-10) H 11/30/18 17:55 Hepatitis A IgM Ab Nonreactive (Nonreactive) 12/01/18 11:10 Hepatitis A Ab Total Reactive (Nonreactive) H 12/01/18 11:10 Hep Bs Antigen Negative (NEGATIVE) 11/30/18 17:55 Hep Bs Antibody Negative (NEGATIVE) 12/01/18 10:01 Hep B Core IgM Ab Negative (NEGATIVE) 11/30/18 17:55 Hepatitis C Antibody Negative (NEGATIVE) 11/30/18 17:55 - Hospital Course Hospital Course: Upon Admission: 38 year old male with past medical history of alcohol abuse, HTN, DM (both untreated), presenting to ED with a R head laceration after a shaving accident. While in the ED, he was found to have significant abdominal distention, with ascites noted on CT. Patient states he has been drinking alcohol nearly daily after work since he was 18 years old. His last drink was last night. Patient was noted to have mild tremors during interview, but patient denied when asked about it. As per patient, his abdominal distention has worsened over the past 2 months, but has not followed up with a primary care provider. His weight tends to fluctuate but recently has gained some weight. Hospital Course: Pt was found to have significant abdominal ascites. Pt underwent paracentesis with ~5500cc clear/straw colored fluid removed. Ascitic fluid did not indicated SBP. Hospital course was complicated at patient went into delirium tremens and was admitted to ICU. Pt placed on course of precedex drip and had subsequently improved. Pt was taken off of precedex drip and placed on prn ativan. During hospital course, pt was evaluated by GI who worked patient up for hepatitis, hepatic adenoma, wilsons, hemochromatosis, all of which were negative. Pt was recommended to get outpatient EGD workup. Pt was treated with spironolactone & lasix. Upon Discharge: Pt is feeling much better. He denies complaints. He has not required ativan overnight. His CIWA scores have been 1, 1, 2. He is ambulating, tolerating diet. VSS. Labs stable. He is to be discharged home with instructions on medication compliance, lifestyle changes, alcohol cessation, outpatient followup and to return to ED if symptom return. Discharge Exam - Head Exam Head Exam: NORMOCEPHALIC - Eye Exam Eye Exam: EOMI, Normal appearance - ENT Exam ENT Exam: Mucous Membranes Moist, Normal Exam - Neck Exam Neck exam: Normal Inspection - Respiratory Exam Respiratory Exam: NORMAL BREATHING PATTERN, UNREMARKABLE - Cardiovascular Exam Cardiovascular Exam: REGULAR RHYTHM, +S1, +S2 - GI/Abdominal Exam GI & Abdominal Exam: Normal Bowel Sounds, Soft - Extremities Exam Extremities exam: normal inspection - Back Exam Back exam: NORMAL INSPECTION - Neurological Exam Neurological exam: Alert, Normal Gait, Oriented x3 - Psychiatric Exam Psychiatric exam: Normal Affect, Normal Mood - Skin Skin Exam: Dry, Intact, Warm Discharge Plan - Discharge Medications Prescriptions: Folic Acid 1 mg PO DAILY #14 tab Furosemide [Lasix] 20 mg PO DAILY #14 tab Multimineral/Multivitamin [Therapeutic-M Tab] 1 tab PO 0800 #14 tab Spironolactone [Aldactone] 50 mg PO DAILY #14 tab Thiamine [Vitamin B1 Tab] 100 mg PO DAILY #14 tab - Follow Up Plan Condition: FAIR Disposition: HOME/ ROUTINE Instructions: Cirrhosis, Heart Healthy Diet, Abdominal Hernia (DC), Abdominal Hernia Repair, Laparoscopic Surgery, Alcohol Withdrawal (DC), Alcohol Abuse and Alcoholism (DC), Open Herniorrhaphy (DC), Laparoscopic Herniorrhaphy (DC), Inguinal Hernia (DC) Additional Instructions: Please follow up with your primary care physician on 12/14/18. An appointment has been made for you at the [facility] on 12/14/18 at 2:30pm. Please arrive to your appointment at least 20 minutes early. Please bring photo ID with you to your appointment. Please complete your [facility] paperwork prior to your appointment. Please take the medications that have been given to you as directed. Please discuss these medications with your doctor during your visit. You will need to get a repeat "Complete Metabolic Panel" to check your electrolytes. Please discuss this during your appointment Please follow up with Dr. Rodrigues (General Surgeon) within 2 weeks of discharge for evaluation of an elective umbilical hernia repair. You will need to follow with a final assembler boat (stomach/liver doctor) for your liver cirrhosis. You will need to set up ericka care at [facility]. You will need set up an appointment. Contact information for [facility] has been provided in this packet. Please stop drinking alcohol If your symptoms return, or your experience new symptoms, please return to the nearest emergency room. Prescriptions have been transmitted to [facility] Referrals: [facility] Insurance, Billing and Financial Facility Worker [Other] - 1 Day (Please make an appointment to set up ericka care with [facility]. Please schedule an appointment with a Health Officer to scheduled and EGD. Please schedule an appointment as soon as possible as there is a long wait time.) [facility] at [facility] [Outside] Clint Gallagher MD [Medical Doctor] - Kaz Rodrigues MD [Staff Provider] - <Raoul Zhao - Last Filed: 12/05/18 15:10> Provider - Provider Date of Admission: 11/30/18 19:41 Attending physician: Raoul Zhao MD Primary care physician: [facility] PRIMARY CARE PROVIDER Consults: 11/30/18 19:56 General Surgery Consult Stat Comment: Consulting Provider: Kaz Rodrigues Consulting Physician: Kaz Rodrigues Reason for Consult: ventral hernia 11/30/18 21:02 Physiatry Consult Routine Comment: Consulting Provider: Roshan Powell Consulting Physician: Roshan Powell Reason for Consult: alcohol hepatitis, liver cirrhosis 12/01/18 05:12 Consult [Physician Consult] Routine Comment: lft's elevation Consulting Provider: Clint Gallagher V Consulting Physician: Clint Gallagher V Reason for Consult: lft's elevation 12/01/18 10:58 Physician Consult Routine Comment: Consulting Provider: Bernardo Dong Consulting Physician: Bernardo Dong Reason for Consult: paracentesis, cirrhosis 2/2 ETOH abuse 12/02/18 09:08 Consult [Physician Consult] Routine Comment: Consulting Provider: Arie Rodríguez Consulting Physician: Arie Rodríguez Reason for Consult: alcohol withdrawal, needs precedex drip 12/02/18 11:08 Nursing Referral for Wound Care Routine Comment: Physician Instructions: Reason For Exam: right frontal lacaration 12/04/18 09:08 Air And Water Filler [Case Management Referral] Routine Comment: Physician Instructions: Reason For Exam: AA meeting Reason for Referral: Discharge Planning 12/04/18 12:27 Social Work Referral Routine Comment: ericka rajesh [facility] Physician Instructions: Reason For Exam: ericka rajesh [facility] Hospital Course - Lab Results Lab Results: Micro Results 12/01/18 12:45 Ascitic Fluid Gram Stain - Final 12/01/18 12:45 Ascitic Fluid Body Fluid Culture - Final No growth. 12/02/18 11:00 Nose MRSA Culture (Admit) - Final MRSA NOT DETECTED Most Recent Lab Values WBC 8.4 10^3/uL (4.5-11.0) 12/05/18 05:40 RBC 4.27 10^6/uL (3.5-6.1) 12/05/18 05:40 Hgb 12.9 g/dL (14.0-18.0) L 12/05/18 05:40 Hct 40.4 % (42.0-52.0) L 12/05/18 05:40 MCV 94.6 fl (80.0-105.0) 12/05/18 05:40 MCH 30.2 pg (25.0-35.0) 12/05/18 05:40 MCHC 31.9 g/dl (31.0-37.0) 12/05/18 05:40 RDW 14.6 % (11.5-14.5) H 12/05/18 05:40 Plt Count 135 10^3/uL (120.0-450.0) 12/05/18 05:40 MPV 11.8 fl (7.0-11.0) H 12/05/18 05:40 Neut % (Auto) 71.3 % (50.0-68.0) H 12/05/18 05:40 Lymph % (Auto) 12.8 % (22.0-35.0) L 12/05/18 05:40 [place] % (Auto) 12.7 % (1.0-6.0) H 12/05/18 05:40 Eos % (Auto) 2.7 % (1.5-5.0) 12/05/18 05:40 Baso % (Auto) 0.5 % (0.0-3.0) 12/05/18 05:40 Lymph # (Auto) 1.1 (1.2-3.4) L 12/05/18 05:40 [place] # (Auto) 1.1 (0.1-0.6) H 12/05/18 05:40 Eos # (Auto) 0.2 (0.0-0.7) 12/05/18 05:40 Baso # (Auto) 0.04 K/mm3 (0.0-2.0) 12/05/18 05:40 Absolute Neuts (auto) 6.02 (1.4-6.5) 12/05/18 05:40 PT 14.3 SECONDS (9.4-12.5) H 12/01/18 11:10 INR 1.27 12/01/18 11:10 APTT 37.8 Seconds (26.9-38.3) 11/30/18 17:55 Sodium 134 mmol/L (132-148) 12/05/18 05:40 Potassium 3.9 mmol/L (3.6-5.0) 12/05/18 05:40 Chloride 100 mmol/L (98-107) 12/05/18 05:40 Carbon Dioxide 25 mmol/L (21-33) 12/05/18 05:40 Anion Gap 13 (10-20) 12/05/18 05:40 BUN 7 mg/dL (7-21) 12/05/18 05:40 Creatinine 0.5 mg/dl (0.8-1.5) L 12/05/18 05:40 Est GFR ( Amer) > 60 12/05/18 05:40 Est GFR (Non-Af Amer) > 60 12/05/18 05:40 POC Glucose (mg/dL) 107 mg/dL (65-110) 12/05/18 07:37 Random Glucose 104 mg/dL (70-110) 12/05/18 05:40 Hemoglobin A1c 5.7 % (4.2-6.5) 11/30/18 17:55 Calcium 8.7 mg/dL (8.4-10.5) 12/05/18 05:40 Phosphorus 4.5 mg/dL (2.5-4.5) 12/03/18 05:40 Magnesium 1.9 mg/dL (1.7-2.2) 12/03/18 05:40 Iron 142 ug/dL (45-180) 12/01/18 14:00 TIBC 333 ug/dL (261-462) 12/01/18 14:00 % Saturation 43 % (20-55) 12/01/18 14:00 Ferritin 53.3 ng/mL 12/01/18 14:00 Total Bilirubin 2.3 mg/dL (0.2-1.3) H 12/05/18 05:40 Direct Bilirubin 1.3 mg/dL (0.0-0.4) H 12/05/18 05:40 AST 122 U/L (17-59) H 12/05/18 05:40 ALT 40 U/L (7-56) 12/05/18 05:40 Alkaline Phosphatase 366 U/L (38-126) H 12/05/18 05:40 Ammonia 30 umol/L (9-33) 12/05/18 05:40 Lactate Dehydrogenase 770 U/L (333-699) H 11/30/18 17:55 Total Protein 7.6 g/dL (5.8-8.3) 12/05/18 05:40 Albumin 3.6 g/dL (3.0-4.8) 12/05/18 05:40 Globulin 4.0 gm/dL 12/05/18 05:40 Albumin/Globulin Ratio 0.9 (1.1-1.8) L 12/05/18 05:40 Ceruloplasmin 41 mg/dL (18-36) H 12/01/18 14:00 Triglycerides 164 mg/dL (35-160) H 11/30/18 17:55 Cholesterol 197 mg/dL (130-200) 11/30/18 17:55 LDL Cholesterol Direct 137 mg/dL (0-129) H 11/30/18 17:55 HDL Cholesterol 43 mg/dL (29-60) 11/30/18 17:55 Alpha Fetoprotein 2.9 ng/mL (0.0-7.5) 12/01/18 10:01 Free T4 1.26 ng/dL (0.78-2.19) 11/30/18 17:55 TSH 3rd Generation 3.41 mIU/mL (0.46-4.68) 11/30/18 17:55 Urine Color [place] (YELLOW) 11/30/18 22:45 Urine Appearance Clear (CLEAR) 11/30/18 22:45 Urine pH 7.0 (4.7-8.0) 11/30/18 22:45 Ur Specific Chicken 1.010 (1.005-1.035) 11/30/18 22:45 Urine Protein Trace mg/dL (<30 mg/dL) H 11/30/18 22:45 Urine Glucose (UA) Negative mg/dL (NEGATIVE) 11/30/18 22:45 Urine Ketones Trace mg/dL (NEGATIVE) H 11/30/18 22:45 Urine Blood Small (NEGATIVE) H 11/30/18 22:45 Urine Nitrate Negative (NEGATIVE) 11/30/18 22:45 Urine Bilirubin Moderate (NEGATIVE) H 11/30/18 22:45 Urine Urobilinogen 2.0 E.U./dL (<1 E.U./dL) H 11/30/18 22:45 Ur Leukocyte Esterase Negative Temo/uL (NEGATIVE) 11/30/18 22:45 Urine RBC 15 - 20 /hpf (0-2) H 11/30/18 22:45 Urine WBC 2 - 5 /hpf (0-6) 11/30/18 22:45 Ur Epithelial Cells 4 - 5 /hpf (0-5) 11/30/18 22:45 Fluid Source Peritoneal/ascites 12/01/18 12:30 Fluid Appearance Sl cloudy (CLEAR) 12/01/18 12:30 Fluid WBC 299.0 /uL (0.0-300.0) 12/01/18 12:30 Fluid RBC 1972.0 /uL (0.0-0.0) H 12/01/18 12:30 Fluid Tot Cell Count 100 (0-0) H 12/01/18 12:30 Fluid Mononuclear Cell 90.6 % (0-0) H 12/01/18 12:30 Fl Polymorphonucl Cell 9.4 % (0-0) H 12/01/18 12:30 Fluid Comment Yellow 12/01/18 12:30 Urine Opiates Screen Negative (NEGATIVE) 11/30/18 22:45 Urine Methadone Screen Negative (NEGATIVE) 11/30/18 22:45 Ur Barbiturates Screen Negative (NEGATIVE) 11/30/18 22:45 Ur Phencyclidine Scrn Negative (NEGATIVE) 11/30/18 22:45 Ur Amphetamines Screen Negative (NEGATIVE) 11/30/18 22:45 U Benzodiazepines Scrn Negative (NEGATIVE) 11/30/18 22:45 U Oth Cocaine Metabols Negative (NEGATIVE) 11/30/18 22:45 U Cannabinoids Screen Negative (NEGATIVE) 11/30/18 22:45 Alcohol, Quantitative 249 mg/dL (0-10) H 11/30/18 17:55 Hepatitis A IgM Ab Nonreactive (Nonreactive) 12/01/18 11:10 Hepatitis A Ab Total Reactive (Nonreactive) H 12/01/18 11:10 Hep Bs Antigen Negative (NEGATIVE) 11/30/18 17:55 Hep Bs Antibody Negative (NEGATIVE) 12/01/18 10:01 Hep B Core IgM Ab Negative (NEGATIVE) 11/30/18 17:55 Hepatitis C Antibody Negative (NEGATIVE) 11/30/18 17:55 Attending/Attestation - Attestation I have personally seen and examined this patient.: Yes I have fully participated in the care of the patient.: Yes I have reviewed all pertinent clinical information, including history, physical exam and plan: Yes Notes (Text): 12/05/18 15:06 Attending note; Patient seen and examined with resident. Patient denies any abdominal pain. Denies any fevers, chills. Denies any urinary, bowel symptoms Tolerating diet. Patient is a 38-year-old male with past medical history significant for alcohol abuse, hypertension not on medications and diabetes not on medications presented to the emergency room with a right head laceration after shaving the hair on his scalp. 1. Delirium Tremens secondary to alcohol abuse and withdrawal. S/P Precedex drip. currently stable. Patient is alert and awake . withdrawal symptoms improved continue thiamine, folic acid, multivitamin. Continue ativan prn. 2. Hepatic encephalopathy. Improved. 3. Ascites, liver cirrhosis. s/p paracentesis 12/01/18 with 5500ml removed. Continue spironolactone and lasix. GI recommendations appreciated. 4. Tranasminitis. Alcoholic hepatitis. LFTS downtrending. Continue to monitor. 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 5. Umbilical hernia. Patient poor surgical candidate. No obstruction. Surgical recommendations appreciated, no acute surgical intervention at this time. Patient is ambulating without difficulty. Complete alcohol cessation is strongly advised. Patient will be referred to [facility] clinic upon discharge. Patient will be advised to follow-up with [facility] hepatology clinic.
[2018-12-05 21:32] LABS: TOTAL PROTEIN PERITONEAL FLUID 3.8 g/dL
== END 2018-12-05 10:54 | disposition home or self-care (01) | DRG 264 ==
LOC: ED 16:21 → ERH 19:41 → 2RSO 21:29 → CCU 12-02 09:29
PROVIDERS: ADMIT Internal Medicine; ATTEND Internal Medicine
PROC: 0W9G3ZX Drainage of Peritoneal Cavity, Percutaneous Approach, Diagnostic (ICD-10-PCS; principal; 2018-12-01 11:00)
DX: K70.31 Alcoholic cirrhosis of liver with ascites (principal); F10.231 Alcohol dependence with withdrawal delirium; K70.11 Alcoholic hepatitis with ascites; E86.0 Dehydration; I10 Essential (primary) hypertension; K72.90 Hepatic failure, unspecified without coma; R73.03 Prediabetes; K42.9 Umbilical hernia without obstruction or gangrene; K43.9 Ventral hernia without obstruction or gangrene; K76.0 Fatty (change of) liver, not elsewhere classified; Y90.8 Blood alcohol level of 240 mg/100 ml or more; S01.01XA Laceration without foreign body of scalp, initial encounter; W26.8XXA Contact with other sharp object(s), not elsewhere classified, initial encounter; Z78.1 Physical restraint status; Y93.E8 Activity, other personal hygiene